=== PATIENT | male | born 1940 | race Caucasian/White ===

== ENCOUNTER → 2016-11-26 | Outpatient (CLI) | payer MEDICARE ==
--- NOTE | 2016-11-26 12:17 | ECHOS ---
DATE OF SERVICE: 11/26/2016 AGE: 76Y SEX: M HT: 67 WT: 220 lbs. Protocol Jean-Paul: X Others: Stress Echo Stage: I Dur. of Exercise: 3 minutes *Heart Rate Blood Pressure *Rest: 90 Rest: 167/87 * *Max. Achieved: 138 Maximum BP: 190/82 85% PMHR: 121 100% PMHR: 142 *METS: 4.4 INDICATIONS: Chest pain. MEDICATIONS: Simvastatin, aspirin. The baseline rhythm is sinus mechanism, rate of 90, with intraventricular conduction delay and voltage criteria for left ventricular hypertrophy and nonspecific ST-T wave changes. Baseline blood pressure 167/87 mmHg. Patient exercised on Jean-Paul protocol for 3 minutes reaching peak rate of 138 beats per minute, which is equal to 97% of maximum predicted heart rate; peak blood pressure 190/82 mmHg. Test was terminated secondary to fatigue. There was no chest pain. Electrocardiograph monitoring revealed no evidence of diagnostic ischemic ST deviation. Baseline echocardiogram revealed an inferobasal and inferobasal lateral hypokinesis with no change at peak exercise. CONCLUSION: 1. Poor exercise tolerance with nondiagnostic electrocardiographic stress testing secondary to baseline EKG abnormality. 2. Abnormal stress echocardiogram with evidence of a fixed hypokinesis involving the inferobasal and inferobasal lateral wall suggestive of prior myocardial infarction. There was no evidence of stress-induced ischemia.
== END | disposition home or self-care (01) ==
LOC: RADNMMAIN 10:04
PROVIDERS: ATTEND Family Medicine
DX: I25.9 Chronic ischemic heart disease, unspecified (principal); I48.91 Unspecified atrial fibrillation
CPT/HCPCS: 93017; 93350

== ENCOUNTER 2018-01-16 13:20 | Emergency (ER) | payer MEDICARE ==
[2018-01-16 13:26] VITALS: TEMP 98.3
[2018-01-16] MEDS ORDERED: MORPHINE SULFATE 4 MG/ML SYRINGE IVP STA (14:04)
[2018-01-16] MEDS ORDERED: SODIUM CHLORIDE 0.9% 1,000 ML IV STA ×2 (14:04)
[2018-01-16] MEDS ORDERED: ONDANSETRON 4 MG/2 ML VIAL IVP STA (14:04)
[2018-01-16 14:23] LABS: Basophils % (A) 0 %; Eosinophils # (A) 0.1 k/uL (0-0.7); Eosinophils % (A) 1 %; HCT 43.9 % (39.0-53.0); HGB 14.6 gm/dL (13.0-17.5); Lymphocytes # (A) 1.2 k/uL (1.0-4.8); Lymphocytes % (A) 10 %; MCH 30.3 pg (25.0-35.0); MCHC 33.3 g/dL (31.0-37.0); Mean Platelet Volume 6.9; Monocytes # (A) 0.6 k/uL (0-1.0); Monocytes % (A) 5 %; Neutrophils # (A) 10.3 k/uL (1.3-7.7); Neutrophils % (A) 83 %; Platelet Count 237 k/uL (150-450); RBC 4.82 m/uL (4.30-5.90); RDW 12.8 % (11.5-15.5); WBC 12.3 k/uL (3.8-10.6)
[2018-01-16 14:41] LABS: Partial Thromboplastin Time 24.8 sec (22.0-30.0); Prothrombin Time 10.1 sec (9.0-12.0)
[2018-01-16 14:46] LABS: Calcium 9.6 mg/dL (8.4-10.2); Potassium 3.5 mmol/L (3.5-5.1); Total Protein 6.6 g/dL (6.3-8.2)
--- NOTE | 2018-01-16 14:58 | ED ---
Abdominal Pain HPI - General Chief Complaint: Abdominal Pain Stated Complaint: Abd Pain Time Seen by Provider: 01/16/18 13:38 Source: patient, family, RN notes reviewed, old records reviewed Mode of arrival: ambulatory Limitations: no limitations - History of Present Illness Initial Comments: 77-year-old male presents emergency Department due to complaint of her abdominal pain, nausea vomiting and diarrhea for the past few days. He reports he's not been able to eat and thinks that night. He states the pain seems to be crampy in nature. He denies any fever or chills. He reports pain occasionally radiates towards his back. No urinary symptoms. No bloody stools or bloody emesis. Surgical history includes hernia repairs. He has a history of coronary disease, hyperlipidemia, hypertension and thyroid disorder. - Related Data Home Medications Medication Instructions Recorded Confirmed Aspirin EC [Ecotrin Low Dose] 1 tab PO DAILY 02/09/14 01/16/18 Doxazosin [Cardura] 2 tab PO DAILY 02/09/14 01/16/18 Levothyroxine Sodium [Levoxyl] 1 tab PO DAILY 02/09/14 01/16/18 Metoprolol Tartrate [Lopressor] 1 tab PO DAILY 02/09/14 01/16/18 Simvastatin [Zocor] 1 tab PO HS 02/09/14 01/16/18 Ketoconazole 2% Cream [Nizoral 2%] 1 applic TOPICAL DAILY 09/12/14 01/16/18 Omeprazole [PriLOSEC] 20 mg PO AC-BRKFST 09/12/14 01/16/18 Apixaban [Eliquis] 5 mg PO DAILY 01/16/18 01/16/18 Previous Rx's Medication Instructions Recorded Acetaminophen-Codeine 300-30mg 1 tab PO Q6H PRN 3 Days #12 tablet 01/16/18 [Tylenol w/codeine #3] Naproxen 500 mg PO BID #20 tablet 01/16/18 Ondansetron Odt [Zofran Odt] 4 mg PO Q8HR PRN #15 tab 01/16/18 Allergies Allergy/AdvReac Type Severity Reaction Status Date / Time Milk Containing Products Allergy Diarrhea Verified 01/16/18 13:25 hydromorphone HCl AdvReac Nausea & Verified 01/16/18 13:25 [From Dilaudid] Vomiting Review of Systems ROS Statement: Those systems with pertinent positive or pertinent negative responses have been documented in the HPI. ROS Other: All systems not noted in ROS Statement are negative. Past Medical History Past Medical History: Coronary Artery Disease (CAD), Hyperlipidemia, Hypertension, Thyroid Disorder History of Any Multi-Drug Resistant Organisms: None Reported Past Surgical History: Hernia Repair, Orthopedic Surgery Additional Past Surgical History / Comment(s): skin cancer, l eye cataract Past Psychological History: No Psychological Hx Reported Smoking Status: Former smoker Past Alcohol Use History: None Reported Past Drug Use History: None Reported General Exam - General Exam Comments Initial Comments: 77-year-old male. Alert and oriented. No acute distress. Limitations: no limitations General appearance: alert, in no apparent distress Head exam: Present: atraumatic, normocephalic, normal inspection Eye exam: Present: normal appearance, PERRL, EOMI. Absent: scleral icterus, conjunctival injection, periorbital swelling ENT exam: Present: normal exam, mucous membranes moist Neck exam: Present: normal inspection. Absent: tenderness, meningismus, lymphadenopathy Respiratory exam: Present: normal lung sounds bilaterally. Absent: respiratory distress, wheezes, rales, rhonchi, stridor Cardiovascular Exam: Present: regular rate, normal rhythm, normal heart sounds. Absent: systolic murmur, diastolic murmur, rubs, gallop, clicks GI/Abdominal exam: Present: soft, tenderness (Epigastric tenderness.), normal bowel sounds. Absent: distended, guarding, rebound, rigid Extremities exam: Present: normal inspection, full ROM, normal capillary refill. Absent: tenderness, pedal edema, joint swelling, calf tenderness Back exam: Present: normal inspection Neurological exam: Present: alert, oriented X3, CN II-XII intact Psychiatric exam: Present: normal affect, normal mood Course Vital Signs 01/16/18 01/16/18 01/16/18 13:24 16:00 16:59 Temperature 98.3 F Pulse Rate 80 62 69 Respiratory 20 20 20 Rate Blood Pressure 146/69 120/60 128/56 O2 Sat by Pulse 96 99 99 Oximetry 01/16/18 17:45 Temperature 98.3 F Pulse Rate 60 Respiratory 18 Rate Blood Pressure 137/63 O2 Sat by Pulse 96 Oximetry Medical Decision Making - Medical Decision Making 77-year-old male presents emergency Department due to complaint of her abdominal pain, nausea vomiting and diarrhea for the past few days. He reports he's not been able to eat and thinks that night. He states the pain seems to be crampy in nature. He denies any fever or chills. He reports pain occasionally radiates towards his back on the right. Labs reviewed. Elevated bilirubin and mildly elevated WBC. With pt symptoms, US gallbladder obtained. Evidence of cholelithiasis. Pt als has hematuria, however I am no clinically concerned for kidney stone. Renal cyst noted in US. Discussed findings with pt, offered admission. States he prefers to go home. Discussed referral for surgereon for cholelithiasis and biliary colic. Discussed follow up for hematuria. Discussed return parameters. All question answered. DC with nausea and pain medication. - Lab Data Result diagrams: 01/16/18 13:55 01/16/18 13:55 Lab Results 01/16/18 01/16/18 01/16/18 Range/Units 13:55 13:55 13:55 WBC 12.3 H (3.8-10.6) k/uL RBC 4.82 (4.30-5.90) m/uL Hgb 14.6 (13.0-17.5) gm/dL Hct 43.9 (39.0-53.0) % MCV 91.0 (80.0-100.0) fL MCH 30.3 (25.0-35.0) pg MCHC 33.3 (31.0-37.0) g/dL RDW 12.8 (11.5-15.5) % Plt Count 237 (150-450) k/uL Neutrophils % 83 % Lymphocytes % 10 % Monocytes % 5 % Eosinophils % 1 % Basophils % 0 % Neutrophils # 10.3 H (1.3-7.7) k/uL Lymphocytes # 1.2 (1.0-4.8) k/uL Monocytes # 0.6 (0-1.0) k/uL Eosinophils # 0.1 (0-0.7) k/uL Basophils # 0.0 (0-0.2) k/uL PT (9.0-12.0) sec INR (<1.2) APTT (22.0-30.0) sec Sodium 142 (137-145) mmol/L Potassium 3.5 (3.5-5.1) mmol/L Chloride 101 (98-107) mmol/L Carbon Dioxide 26 (22-30) mmol/L Anion Gap 15 mmol/L BUN 24 H (9-20) mg/dL Creatinine 1.10 (0.66-1.25) mg/dL Est GFR (CKD-EPI)AfAm 74 (>60 ml/min/1.73 sqM) Est GFR (CKD-EPI)NonAf 64 (>60 ml/min/1.73 sqM) Glucose 110 H (74-99) mg/dL Plasma Lactic Acid Jesús 1.0 (0.7-2.0) mmol/L Calcium 9.6 (8.4-10.2) mg/dL Total Bilirubin 2.0 H (0.2-1.3) mg/dL AST 30 (17-59) U/L ALT 40 (21-72) U/L Alkaline Phosphatase 53 (38-126) U/L Total Protein 6.6 (6.3-8.2) g/dL Albumin 4.0 (3.5-5.0) g/dL Amylase 42 (30-110) U/L Lipase 36 (23-300) U/L Urine Color Urine Appearance (Clear) Urine pH (5.0-8.0) Ur Specific [place] (1.001-1.035) Urine Protein (Negative) Urine Glucose (UA) (Negative) Urine Ketones (Negative) Urine Blood (Negative) Urine Nitrite (Negative) Urine Bilirubin (Negative) Urine Urobilinogen (<2.0) mg/dL Ur Leukocyte Esterase (Negative) Urine RBC (0-5) /hpf Urine WBC (0-5) /hpf Urine Mucus (None) /hpf 01/16/18 01/16/18 Range/Units 13:55 16:35 WBC (3.8-10.6) k/uL RBC (4.30-5.90) m/uL Hgb (13.0-17.5) gm/dL Hct (39.0-53.0) % MCV (80.0-100.0) fL MCH (25.0-35.0) pg MCHC (31.0-37.0) g/dL RDW (11.5-15.5) % Plt Count (150-450) k/uL Neutrophils % % Lymphocytes % % Monocytes % % Eosinophils % % Basophils % % Neutrophils # (1.3-7.7) k/uL Lymphocytes # (1.0-4.8) k/uL Monocytes # (0-1.0) k/uL Eosinophils # (0-0.7) k/uL Basophils # (0-0.2) k/uL PT 10.1 (9.0-12.0) sec INR 1.0 (<1.2) APTT 24.8 (22.0-30.0) sec Sodium (137-145) mmol/L Potassium (3.5-5.1) mmol/L Chloride (98-107) mmol/L Carbon Dioxide (22-30) mmol/L Anion Gap mmol/L BUN (9-20) mg/dL Creatinine (0.66-1.25) mg/dL Est GFR (CKD-EPI)AfAm (>60 ml/min/1.73 sqM) Est GFR (CKD-EPI)NonAf (>60 ml/min/1.73 sqM) Glucose (74-99) mg/dL Plasma Lactic Acid Jesús (0.7-2.0) mmol/L Calcium (8.4-10.2) mg/dL Total Bilirubin (0.2-1.3) mg/dL AST (17-59) U/L ALT (21-72) U/L Alkaline Phosphatase (38-126) U/L Total Protein (6.3-8.2) g/dL Albumin (3.5-5.0) g/dL Amylase (30-110) U/L Lipase (23-300) U/L Urine Color Yellow Urine Appearance Clear (Clear) Urine pH 6.0 (5.0-8.0) Ur Specific [place] 1.021 (1.001-1.035) Urine Protein Trace H (Negative) Urine Glucose (UA) Negative (Negative) Urine Ketones Negative (Negative) Urine Blood Small H (Negative) Urine Nitrite Negative (Negative) Urine Bilirubin Negative (Negative) Urine Urobilinogen <2.0 (<2.0) mg/dL Ur Leukocyte Esterase Small H (Negative) Urine RBC 10 H (0-5) /hpf Urine WBC 5 (0-5) /hpf Urine Mucus Moderate H (None) /hpf - Radiology Data Radiology results: report reviewed Correlate for hepatic steatosis. Hepatomegaly. Cholelithiasis. Simple cyst lower pole of the right kidney. Objective right nephrolithiasis. Some limitations to the exam. Disposition Clinical Impression: Biliary colic, Hematuria Disposition: HOME SELF-CARE Condition: Good Instructions: Biliary Colic (ED), Abdominal Pain (ED) Additional Instructions: Patient has follow-up with primary care provider and surgeon. Return to the emergency department if any alarming signs or symptoms occur. Prescriptions: Acetaminophen-Codeine 300-30mg [Tylenol w/codeine #3] 1 tab PO Q6H PRN 3 Days # 12 tablet PRN Reason: Pain Naproxen 500 mg PO BID #20 tablet Ondansetron Odt [Zofran Odt] 4 mg PO Q8HR PRN #15 tab PRN Reason: Nausea Is patient prescribed a controlled substance at d/c from ED?: No If prescribed controlled substance>3 days was MAPS reviewed?: No When asked, does pt state using other controlled substances?: No Referrals: Haim Felder MD [Primary Care Provider] - 1-2 days Kelsi Brown MD [STAFF PHYSICIAN] - 1-2 days Loyda Porter DO [Doctor of Osteopathic Medicine] - 1-2 days Time of Disposition: 17:34
--- NOTE | 2018-01-16 15:04 | XR ---
Abdomen HISTORY: Pain Frontal view of the abdomen on 2 images There are air-fluid levels present. No pneumoperitoneum. Gas-filled loops of bowel are present. Lung bases show possible atelectatic change. IMPRESSION: Correlate for ileus or enteritis, follow-up as indicated if bowel obstruction is suspecte d.
--- NOTE | 2018-01-16 16:43 | US ---
EXAMINATION TYPE: US gallbladder DATE OF EXAM: 01/16/2018 COMPARISON: Previous dated 08/16/[address] 08/14/2012 CLINICAL HISTORY: Pain. NPO, LLQ pain EXAM MEASUREMENTS: Liver Length: 19.5 cm Gallbladder Wall: 0.2 cm CHD: 0.4 cm Right Kidney: 9.7 x 5.0 x 5.4 cm Limited exam due to overlying bowel gas and pt body habitus Pancreas: Appears echogenic. Tail obscured by overlying bowel gas Liver: Appears course and enlarged. Increased attenuation, decreased visualization of vessels sugges tive of fatty infiltrate Gallbladder: Multiple mobile echogenic foci Evidence for sonographic Calderón's sign: neg CBD: Obscured by overlying bowel gas CHD: wnl Right Kidney: Lower pole lateral cystic appearing lesion = 2.2 x 2.9 x 2.7 cm. There is increased th rough transmission, imperceptible wall, anechoic appearance. Nonobstruction echogenic focus with sha ava in lower pole = 0.6 x 0.8 cm No evident ascites. IMPRESSION: Correlate for hepatic steatosis, there is hepatomegaly. Cholelithiasis. Simple cyst lower pole right kidney, nonobstructive right nephrolithiasis There are some limitations to the exam.
[2018-01-16 16:51] LABS: Appearance,Urine Clear (Clear); Bilirubin,Urine Negative (Negative); Blood,Urine Small (Negative); Color,Urine Yellow; Glucose,Urine (UA) Negative (Negative); Ketones,Urine Negative (Negative); Leukocyte Esterase,Urine Small (Negative); Mucus,Urine Moderate /hpf; Nitrite,Urine Negative (Negative); Protein,Urine Trace (Negative); RBC,Urine 10 /hpf (0-5); Specific Gravity,Urine 1.021 (1.001-1.035); Urobilinogen,Urine <2.0 mg/dL (<2.0); WBC,Urine 5 /hpf (0-5)
[2018-01-16 18:20] VITALS: BP 137/63; PULSE 60; RESP 18
== END 2018-01-16 17:45 | disposition home or self-care (01) ==
LOC: EC 13:20
DX: K80.50 Calculus of bile duct without cholangitis or cholecystitis without obstruction (principal); R31.9 Hematuria, unspecified; R19.7 Diarrhea, unspecified; I25.10 Atherosclerotic heart disease of native coronary artery without angina pectoris; E78.5 Hyperlipidemia, unspecified; I10 Essential (primary) hypertension; E07.9 Disorder of thyroid, unspecified; Z85.828 Personal history of other malignant neoplasm of skin; Z87.891 Personal history of nicotine dependence; Z79.01 Long term (current) use of anticoagulants; Z79.82 Long term (current) use of aspirin; Z79.899 Other long term (current) drug therapy; Z91.011 Allergy to milk products; Z88.5 Allergy status to narcotic agent
CPT/HCPCS: 36415; 80053; 82150; 83605; 83690; 85025; 85610; 85730; 81001; 74018; 76705; 99285; 96374; 96375; 96361 ×3; J2270; J2405

== ENCOUNTER → 2018-08-18 | Outpatient (CLI) | payer MEDICARE ==
--- NOTE | 2018-08-19 08:11 | CT ---
EXAMINATION TYPE: CT abdomen pelvis wo/w con DATE OF EXAM: 08/18/2018 COMPARISON: CT abdomen and pelvis August 14, 2012 HISTORY: c/o hematuria and diarrhea CT DLP: 2748.6 mGycm, Automated Exposure Control for Dose Reduction was Utilized. CONTRAST: CT scan of the abdomen and pelvis is performed with oral and without and with IV Contrast, patient in jected with 80 mL of Isovue 300. FINDINGS: LUNG BASES: Focal calcification near left aspect of mitral valve axial image 13 is new from prior. LIVER/GB: On noncontrast imaged liver is diffusely low dense relative to spleen consistent with diffu se fatty infiltration. Gallbladder is now not visualized and presumed surgically absent. PANCREAS: No significant abnormality is seen. SPLEEN: No significant abnormality is seen. ADRENALS: No significant abnormality is seen. KIDNEYS: There is bilateral nephrolithiasis redemonstrated. There are at least 4-6 calculi scattered throughout the left kidney measuring up to 6 mm in size coronal image 81. 4-6 calculi scattered throu ghout the right kidney are felt present with larger calculi seen lower pole level coronal image 71 me asuring up to 5 mm in size. There are a few simple appearing cysts scattered throughout both kidneys. Largest cyst is bilobed and exophytic upper pole level left kidney similar to prior. Some central ca lcifications in left kidney favors vascular etiology. No hydronephrosis or obstructing renal calculi are clearly seen bilaterally. There is symmetric cortical medullary uptake and excretion from both ki dneys without hydronephrosis seen bilaterally bladder is poorly distended and thus suboptimally evalu ated. Bladder calcifications are present along right margin could reflect intraluminal calculi versus bladder wall calcifications as there are more curvilinear in appearance but are fairly dependent in location on coronal image 61. BOWEL: No significant abnormality is seen. PROSTATE/SEMINAL VESICLES: Prostate gland is markedly enlarged in size consistent with BPH with poste rior calcifications redemonstrated. LYMPH NODES: No greater than 1cm abdominal or pelvic lymph nodes are appreciated. OSSEOUS STRUCTURES: Multilevel disc space narrowing and vacuum disc phenomenon is present with multil evel spurring throughout the thoracolumbar spine moderate to severe narrowing and mild to moderate sp urring in both hip joints is present.. OTHER: There is new small to moderate-sized fat-containing incisional hernia along scar axial image 5 5 and coronal image 9 series 12. IMPRESSION: 1. Bilateral nephrolithiasis with progression in size and number of calculi from prior CT. Suspect ad ditional intraluminal calculi in the bladder. No definitive hydronephrosis or obstructing ureter calc mela seen. 2. Marked lead enlarged prostate gland consistent with BPH is redemonstrated. Bladder wall thickening is presumed product of outlet obstruction related to BPH. 3. No bowel obstruction. No suspicious bowel wall thickening is seen.
== END | disposition home or self-care (01) ==
LOC: RADCTMAIN 14:32
PROVIDERS: ATTEND Family Medicine
DX: N20.0 Calculus of kidney (principal); N40.0 Benign prostatic hyperplasia without lower urinary tract symptoms
CPT/HCPCS: 82565; 84520; 74178; 36415; Q9967

== ENCOUNTER 2019-06-24 17:24 | Inpatient (IN) | payer MEDICARE ==
[2019-06-24] MEDS ORDERED: SODIUM CHLORIDE 0.9% 1,000 ML IV STA (17:59)
--- NOTE | 2019-06-24 18:07 | ED ---
Weakness HPI - General Chief complaint: Weakness Stated complaint: weakness, low BP Time Seen by Provider: 06/24/19 17:45 Source: patient, RN notes reviewed, old records reviewed Mode of arrival: wheelchair Limitations: no limitations - History of Present Illness Initial comments: This is a 79-year-old male the ER for evaluation presents a for evaluation regards to weakness not feeling well. Low blood pressure. Patient was seen by primary care sent ER for evaluation. Patient is significant weakness as well shortness of breath with exertion some mild abdominal pain and nausea no chest pain. No headache. No recent syncopal event no trauma. No recent change in medications. Patient has long calm. Medical history on blood thinners. MD Complaint: generalized weakness, lack of energy -: days(s) Location: generalized Severity: moderate Severity scale (1-10): 7 Consistency: constant Improves with: none Worsens with: none Context: recent illness, history of similar Associated Symptoms: loss of appetite, nausea/vomiting - Related Data Home Medications Medication Instructions Recorded Confirmed Doxazosin [Cardura] 8 mg PO DAILY 02/09/14 06/24/19 Levothyroxine Sodium [Levoxyl] 100 mcg PO DAILY 02/09/14 06/24/19 Metoprolol Tartrate [Lopressor] 50 mg PO DAILY 02/09/14 06/24/19 Simvastatin [Zocor] 40 mg PO HS 02/09/14 06/24/19 Ketoconazole 2% Cream [Nizoral 2%] 1 applic TOPICAL DAILY 09/12/14 06/24/19 Omeprazole [PriLOSEC] 20 mg PO AC-BRKFST 09/12/14 06/24/19 Apixaban [Eliquis] 5 mg PO BID 01/16/18 06/24/19 Albuterol Nebulized [Ventolin 2.5 mg INHALATION RT-QID PRN 06/24/19 06/24/19 Nebulized] Albuterol Sulfate [Ventolin HFA] 2 puff INHALATION RT-QID 06/24/19 06/24/19 Chlorthalidone [Hygroton] 25 mg PO DAILY 06/24/19 06/24/19 Ergocalciferol [Vitamin D2] 50,000 unit PO Q30D 06/24/19 06/24/19 Fluticasone Nasal [place] [Flonase 1 spr EA NOSTRIL DAILY 06/24/19 06/24/19 Nasal [place]] Montelukast [Singulair] 10 mg PO HS 06/24/19 06/24/19 Allergies Allergy/AdvReac Type Severity Reaction Status Date / Time Milk Containing Products Allergy Diarrhea Verified 06/24/19 18:04 silicone Allergy Rash/Hives Verified 06/24/19 18:04 hydromorphone HCl AdvReac Nausea & Verified 06/24/19 18:04 [From Dilaudid] Vomiting powder from latex gloves Allergy Rash/Hives Uncoded 05/07/18 07:52 Review of Systems ROS Statement: Those systems with pertinent positive or pertinent negative responses have been documented in the HPI. ROS Other: All systems not noted in ROS Statement are negative. Past Medical History Past Medical History: Atrial Fibrillation, Coronary Artery Disease (CAD), GERD/Reflux, Hyperlipidemia, Hypertension, Myocardial Infarction (ID), Prostate Disorder, Thyroid Disorder Additional Past Medical History / Comment(s): Enlarged Prostate, States ID 30 years ago. Last Myocardial Infarction Date:: 1987 History of Any Multi-Drug Resistant Organisms: None Reported Past Surgical History: Heart Catheterization, Hernia Repair, Orthopedic Surgery Additional Past Surgical History / Comment(s): skin cancer, L eye cataract, R knee replacement Past Anesthesia/Blood Transfusion Reactions: No Reported Reaction Past Psychological History: No Psychological Hx Reported Smoking Status: Former smoker Past Alcohol Use History: None Reported Past Drug Use History: None Reported - Past Family History Mother Family Medical History: No Reported History Sister(s) Family Medical History: Cancer Additional Family Medical History / Comment(s): Ovarian Brother(s) Family Medical History: Cancer Additional Family Medical History / Comment(s): Non-Hodgkins Lymphoma General Exam Limitations: no limitations General appearance: alert, in no apparent distress Head exam: Present: atraumatic, normocephalic, normal inspection Eye exam: Present: normal appearance, EOMI. Absent: scleral icterus, conjunctival injection, periorbital swelling ENT exam: Present: normal exam, mucous membranes dry Neck exam: Present: normal inspection. Absent: tenderness, meningismus, lymphadenopathy Respiratory exam: Present: normal lung sounds bilaterally. Absent: respiratory distress, wheezes, rales, rhonchi, stridor Cardiovascular Exam: Present: regular rate, normal rhythm, normal heart sounds. Absent: systolic murmur, diastolic murmur, rubs, gallop, clicks GI/Abdominal exam: Present: soft, normal bowel sounds. Absent: distended, tenderness, guarding, rebound, rigid Extremities exam: Present: normal inspection, full ROM, normal capillary refill. Absent: tenderness, pedal edema, joint swelling, calf tenderness Back exam: Present: normal inspection Neurological exam: Present: alert, oriented X3, CN II-XII intact Psychiatric exam: Present: normal affect, normal mood Skin exam: Present: warm, dry, intact, normal color. Absent: rash Course Vital Signs 06/24/19 06/24/19 06/24/19 17:26 18:22 18:50 Temperature 97.7 F Pulse Rate 79 69 73 Respiratory 18 21 23 Rate Blood Pressure 117/75 90/79 102/83 O2 Sat by Pulse 97 96 96 Oximetry 06/24/19 19:17 Temperature Pulse Rate 80 Respiratory 18 Rate Blood Pressure 121/80 O2 Sat by Pulse 95 Oximetry - Reevaluation(s) Reevaluation #1: 06/24/19 18:07 Medical records reviewed Reevaluation #2: 06/24/19 19:32 Patient continues reiterates that he has some chest pain - Consultations Consultation #1: spoke w Dr Fabian whois aware of patient, spoke with cardiology who is aware patient's troponin and EKG EKG Findings - EKG Comments: EKG Findings:: EKG shows A. fib rate of 70, QRS 170, QTc 547, 1 widened QRS from LBBB Medical Decision Making - Medical Decision Making 79 male seen evaluated here in the ER for weakness and low blood pressure. Patient has sustained ID, non-ST elevated ID. Patient has history of A. fib in A. fib with a normal rate, wide complex QRS and left bundle. Patient's troponins 0.3. Patient is on anticoagulation secondary to A. fib and will be admitted for cardiology observation. No current chest pain - Lab Data Result diagrams: 06/24/19 18:15 06/24/19 18:15 Lab Results 06/24/19 06/24/19 06/24/19 Range/Units 18:15 18:15 18:15 WBC 8.8 (3.8-10.6) k/uL RBC 4.78 (4.30-5.90) m/uL Hgb 15.2 (13.0-17.5) gm/dL Hct 44.0 (39.0-53.0) % MCV 92.1 (80.0-100.0) fL MCH 31.8 (25.0-35.0) pg MCHC 34.5 (31.0-37.0) g/dL RDW 12.7 (11.5-15.5) % Plt Count 264 (150-450) k/uL Neutrophils % 70 % Lymphocytes % 20 % Monocytes % 5 % Eosinophils % 2 % Basophils % 1 % Neutrophils # 6.1 (1.3-7.7) k/uL Lymphocytes # 1.8 (1.0-4.8) k/uL Monocytes # 0.4 (0-1.0) k/uL Eosinophils # 0.2 (0-0.7) k/uL Basophils # 0.1 (0-0.2) k/uL PT (9.0-12.0) sec INR (<1.2) APTT (22.0-30.0) sec Sodium 141 (137-145) mmol/L Potassium 3.5 (3.5-5.1) mmol/L Chloride 104 (98-107) mmol/L Carbon Dioxide 28 (22-30) mmol/L Anion Gap 9 mmol/L BUN 20 (9-20) mg/dL Creatinine 1.26 H (0.66-1.25) mg/dL Est GFR (CKD-EPI)AfAm 61 (>60 ml/min/1.73 sqM) Est GFR (CKD-EPI)NonAf 53 (>60 ml/min/1.73 sqM) Glucose 101 H (74-99) mg/dL Plasma Lactic Acid Jesús 1.2 (0.7-2.0) mmol/L Calcium 10.1 (8.4-10.2) mg/dL Phosphorus 3.7 (2.5-4.5) mg/dL Magnesium 1.9 (1.6-2.3) mg/dL Total Bilirubin 1.0 (0.2-1.3) mg/dL AST 34 (17-59) U/L ALT 37 (21-72) U/L Alkaline Phosphatase 52 (38-126) U/L Creatine Kinase 199 H (55-170) U/L Troponin I (0.000-0.034) ng/mL Total Protein 7.2 (6.3-8.2) g/dL Albumin 4.2 (3.5-5.0) g/dL TSH 1.790 (0.465-4.680) mIU/L 06/24/19 06/24/19 Range/Units 18:15 18:15 WBC (3.8-10.6) k/uL RBC (4.30-5.90) m/uL Hgb (13.0-17.5) gm/dL Hct (39.0-53.0) % MCV (80.0-100.0) fL MCH (25.0-35.0) pg MCHC (31.0-37.0) g/dL RDW (11.5-15.5) % Plt Count (150-450) k/uL Neutrophils % % Lymphocytes % % Monocytes % % Eosinophils % % Basophils % % Neutrophils # (1.3-7.7) k/uL Lymphocytes # (1.0-4.8) k/uL Monocytes # (0-1.0) k/uL Eosinophils # (0-0.7) k/uL Basophils # (0-0.2) k/uL PT 10.2 (9.0-12.0) sec INR 0.9 (<1.2) APTT 27.6 (22.0-30.0) sec Sodium (137-145) mmol/L Potassium (3.5-5.1) mmol/L Chloride (98-107) mmol/L Carbon Dioxide (22-30) mmol/L Anion Gap mmol/L BUN (9-20) mg/dL Creatinine (0.66-1.25) mg/dL Est GFR (CKD-EPI)AfAm (>60 ml/min/1.73 sqM) Est GFR (CKD-EPI)NonAf (>60 ml/min/1.73 sqM) Glucose (74-99) mg/dL Plasma Lactic Acid Jesús (0.7-2.0) mmol/L Calcium (8.4-10.2) mg/dL Phosphorus (2.5-4.5) mg/dL Magnesium (1.6-2.3) mg/dL Total Bilirubin (0.2-1.3) mg/dL AST (17-59) U/L ALT (21-72) U/L Alkaline Phosphatase (38-126) U/L Creatine Kinase (55-170) U/L Troponin I 0.252 H* (0.000-0.034) ng/mL Total Protein (6.3-8.2) g/dL Albumin (3.5-5.0) g/dL TSH (0.465-4.680) mIU/L - Radiology Data Radiology results: report reviewed (Chest x-rays negative for acute disease), image reviewed Critical Care Time Critical Care Time: Yes Total Critical Care Time: 81 Disposition Clinical Impression: Weakness, NSTEMI (non-ST elevated myocardial infarction) Disposition: ADMITTED IP TO THIS [facility] Condition: Serious Is patient prescribed a controlled substance at d/c from ED?: No Referrals: Haim Felder MD [Primary Care Provider] - 1-2 days
[2019-06-24 18:30] LABS: Basophils # (A) 0.1 k/uL (0-0.2); Basophils % (A) 1 %; Eosinophils # (A) 0.2 k/uL (0-0.7); Eosinophils % (A) 2 %; HGB 15.2 gm/dL (13.0-17.5); Lymphocytes # (A) 1.8 k/uL (1.0-4.8); Lymphocytes % (A) 20 %; MCH 31.8 pg (25.0-35.0); MCHC 34.5 g/dL (31.0-37.0); MCV 92.1 fL (80.0-100.0); Mean Platelet Volume 6.1; Monocytes # (A) 0.4 k/uL (0-1.0); Monocytes % (A) 5 %; Neutrophils # (A) 6.1 k/uL (1.3-7.7); Neutrophils % (A) 70 %; Platelet Count 264 k/uL (150-450); RBC 4.78 m/uL (4.30-5.90); RDW 12.7 % (11.5-15.5); WBC 8.8 k/uL (3.8-10.6)
[2019-06-24 18:45] LABS: Albumin 4.2 g/dL (3.5-5.0); Calcium 10.1 mg/dL (8.4-10.2); Magnesium 1.9 mg/dL (1.6-2.3); Phosphorus 3.7 mg/dL (2.5-4.5); Potassium 3.5 mmol/L (3.5-5.1); Total Protein 7.2 g/dL (6.3-8.2)
[2019-06-24 19:07] LABS: INR 0.9 (<1.2); Partial Thromboplastin Time 27.6 sec (22.0-30.0); Prothrombin Time 10.2 sec (9.0-12.0)
[2019-06-24] MEDS ORDERED: ASPIRIN 81 MG PO STA (19:29)
[2019-06-24] MEDS ORDERED: NITROGLYCERIN SL TABS 0.4 MG TAB SUBLINGUAL PRN (19:29)
[2019-06-24] MEDS: SODIUM CHLORIDE 0.9% 1,000 ML IV SCH (19:39)
[2019-06-24 19:50] LABS: Appearance,Urine Clear (Clear); Bilirubin,Urine Negative (Negative); Blood,Urine Small (Negative); Color,Urine Yellow; Glucose,Urine (UA) Negative (Negative); Hyaline Casts,Urine 5 /lpf (0-2); Ketones,Urine Negative (Negative); Leukocyte Esterase,Urine Negative (Negative); Mucus,Urine Rare /hpf; Nitrite,Urine Negative (Negative); Protein,Urine Trace (Negative); RBC,Urine 61 /hpf (0-5); Specific Gravity,Urine 1.024 (1.001-1.035); Squamous Epithelial Cell,Urine <1 /hpf (0-4); Urobilinogen,Urine <2.0 mg/dL (<2.0); WBC,Urine 2 /hpf (0-5)
[2019-06-24 22:01] VITALS: BMI 34.9
[2019-06-24] MEDS ORDERED: ALBUTEROL NEBULIZED 2.5 MG/3 ML INHALATION PRN (22:39)
[2019-06-24] MEDS: ACETAMINOPHEN TAB 325 MG TAB PO PRN (23:09)
[2019-06-24] MEDS: ATORVASTATIN 20 MG TAB PO SCH (23:09)
[2019-06-24] MEDS: APIXABAN 5 MG TAB PO SCH (23:09)
[2019-06-24] MEDS: MONTELUKAST 10 MG TAB PO SCH (23:09)
[2019-06-25] MEDS: LEVOTHYROXINE 100 MCG TAB PO SCH (06:27)
[2019-06-25] MEDS: PANTOPRAZOLE 40 MG TABLET PO SCH (06:27)
[2019-06-25 06:46] LABS: Cholesterol 123 mg/dL (<200); HDL Cholesterol 37 mg/dL (40-60); LDL Cholesterol,Calculated 56 mg/dL (0-99); Triglycerides 150 mg/dL (<150)
[2019-06-25] MEDS: FLUTICASONE 50MCG/SPRAY NASAL 16GM EA NOSTRIL SCH (08:45)
[2019-06-25] MEDS ORDERED: ASPIRIN 325 MG TAB PO SCH (09:00)
[2019-06-25] MEDS: APIXABAN 5 MG TAB PO SCH ×2 (09:03→20:18)
[2019-06-25] MEDS: DOXAZOSIN 4 MG TAB PO SCH (09:03)
[2019-06-25] MEDS: ALBUTEROL NEBULIZED 2.5 MG/3 ML INHALATION SCH ×4 (09:24→20:10)
[2019-06-25] MEDS: METOPROLOL TARTRATE 50 MG TAB PO SCH (11:05)
--- NOTE | 2019-06-25 12:40 | P.HPIM ---
History of Present Illness 79-year-old pleasant gentleman was admitted for possible low blood pressure although his blood pressure is 120 systolic and 60s diastolic at home. Patient was feeling weak and he believed blood pressure is the reason for that . Katie fontenot's heart rate was any teas his normal heart rate is in 50s as per the patient because of which patient came to ER and ER patient had stable mild elevation of troponins to 0.2 because of which patient was admitted for rule out acute current syndromes patient doesn't have any chest pain patient denied fever chills nausea vomiting diaphoresis. Patient was a valid by cardiology patient doesn't have any acute EKG changes cardiology is recommending echocardiogram and if echocardiogram doesn't show any wall motion abnormalities. Patient did recommending him to discharge the patient. Patient does have chronic kidney disease which may be responsible for his mild troponin elevation. Patient ba seline creatinine 1.2. Patient is also on chlorthalidone may not be beneficialbecause of the his serum creatinine being 1.2 and this will be discontinued and patient will be discharged to follow up with primary care physician if cleared by cardiology. Review of Systems REVIEW OF SYSTEMS: CONSTITUTIONAL: No fever, no malaise, HEENT: No recent visual problems or hearing problems. Denied any sore throat. CARDIOVASCULAR: No chest pain, orthopnea, PND, no palpitations, no syncope. PULMONARY: No shortness of breath, no cough, no hemoptysis. GASTROINTESTINAL: No diarrhea, no nausea, no vomiting, no abdominal pain. NEUROLOGICAL: No headaches, no weakness, no numbness. HEMATOLOGICAL: Denies any bleeding or petechiae. GENITOURINARY: Denies any burning micturition, frequency, or urgency. MUSCULOSKELETAL/RHEUMATOLOGICAL: Denies any joint pain, swelling, or any muscle pain. ENDOCRINE: Denies any polyuria or polydipsia. The rest of the 14-point review of systems is negative. Past Medical History Past Medical History: Atrial Fibrillation, Coronary Artery Disease (CAD), GERD/Reflux, Hyperlipidemia, Hypertension, Myocardial Infarction ([place]), Prostate Disorder, Thyroid Disorder Additional Past Medical History / Comment(s): Enlarged Prostate, States [place] 30 years ago. Last Myocardial Infarction Date:: 1987 History of Any Multi-Drug Resistant Organisms: None Reported Past Surgical History: Heart Catheterization, Hernia Repair, Orthopedic Surgery Additional Past Surgical History / Comment(s): skin cancer, L eye cataract, R knee replacement Past Anesthesia/Blood Transfusion Reactions: No Reported Reaction Past Psychological History: No Psychological Hx Reported Smoking Status: Former smoker Past Alcohol Use History: None Reported Additional Past Alcohol Use History / Comment(s): Quit smoking in 1999. Past Drug Use History: None Reported - Past Family History Mother Family Medical History: No Reported History Sister(s) Family Medical History: Cancer Additional Family Medical History / Comment(s): Ovarian Brother(s) Family Medical History: Cancer Additional Family Medical History / Comment(s): Non-Hodgkins Lymphoma Medications and Allergies Home Medications Medication Instructions Recorded Confirmed Type Doxazosin [Cardura] 8 mg PO DAILY 02/09/14 06/24/19 History Levothyroxine Sodium [Levoxyl] 100 mcg PO DAILY 02/09/14 06/24/19 History Metoprolol Tartrate [Lopressor] 50 mg PO DAILY 02/09/14 06/24/19 History Simvastatin [Zocor] 40 mg PO HS 02/09/14 06/24/19 History Ketoconazole 2% Cream [Nizoral 2%] 1 applic TOPICAL DAILY 09/12/14 06/24/19 History Omeprazole [PriLOSEC] 20 mg PO AC-BRKFST 09/12/14 06/24/19 History Apixaban [Eliquis] 5 mg PO BID 01/16/18 06/24/19 History Albuterol Nebulized [Ventolin 2.5 mg INHALATION RT-QID PRN 06/24/19 06/24/19 History Nebulized] Albuterol Sulfate [Ventolin HFA] 2 puff INHALATION RT-QID 06/24/19 06/24/19 History Chlorthalidone [Hygroton] 25 mg PO DAILY 06/24/19 06/24/19 History Ergocalciferol [Vitamin D2] 50,000 unit PO Q30D 06/24/19 06/24/19 History Fluticasone Nasal [place] [Flonase 1 spr EA NOSTRIL DAILY 06/24/19 06/24/19 History Nasal [place]] Montelukast [Singulair] 10 mg PO HS 06/24/19 06/24/19 History Allergies Allergy/AdvReac Type Severity Reaction Status Date / Time Milk Containing Products Allergy Diarrhea Verified 06/24/19 18:04 silicone Allergy Rash/Hives Verified 06/24/19 18:04 hydromorphone HCl AdvReac Nausea & Verified 06/24/19 18:04 [From Dilaudid] Vomiting powder from latex gloves Allergy Rash/Hives Uncoded 05/07/18 07:52 Physical Exam Vitals: Vital Signs Temp Pulse Pulse Resp BP BP Pulse Ox 06/25/19 12:21 80 06/25/19 12:10 76 06/25/19 11:06 98 F 72 18 128/69 94 L 06/25/19 09:38 80 06/25/19 09:25 84 06/25/19 08:00 97.9 F 78 18 156/82 97 06/25/19 03:10 98.3 F 62 18 135/81 97 06/25/19 00:00 99.1 F 79 16 148/83 95 06/24/19 22:08 95 06/24/19 21:45 98.0 F 67 16 136/82 95 06/24/19 19:17 80 18 121/80 95 06/24/19 18:50 73 23 102/83 96 06/24/19 18:22 69 21 90/79 96 06/24/19 17:26 97.7 F 79 18 117/75 97 Intake and Output 06/24/19 06/25/19 06/25/19 22:59 06:59 14:59 Intake Total 240 Output Total 300 Balance 240 -300 Intake: Oral 240 Output: Urine 300 Other: Voiding Method Toilet # Voids 1 1 Weight 101.151 kg 99.7 kg PHYSICAL EXAMINATION: GENERAL: The patient is alert and oriented x3, not in any acute distress. Well developed, well nourished. HEENT: Pupils are round and equally reacting to light. EOMI. No scleral icterus. No conjunctival pallor. Normocephalic, atraumatic. No pharyngeal erythema. No thyromegaly. CARDIOVASCULAR: S1 and S2 present. No murmurs, rubs, or gallops. PULMONARY: Chest is clear to auscultation, no wheezing or crackles. ABDOMEN: Soft, nontender, nondistended, normoactive bowel sounds. No palpable organomegaly. MUSCULOSKELETAL: No joint swelling or deformity. EXTREMITIES: No cyanosis, clubbing, or pedal edema. NEUROLOGICAL: Gross neurological examination did not reveal any focal deficits. SKIN: No rashes. Results CBC & Chem 7: 06/24/19 18:15 06/24/19 18:15 Labs: Abnormal Lab Results - Last 24 Hours (Table) 06/24/19 06/24/19 06/24/19 Range/Units 18:15 18:15 19:25 Creatinine 1.26 H (0.66-1.25) mg/dL Glucose 101 H (74-99) mg/dL Creatine Kinase 199 H (55-170) U/L Troponin I 0.252 H* (0.000-0.034) ng/mL Triglycerides (<150) mg/dL HDL Cholesterol (40-60) mg/dL Urine Protein Trace H (Negative) Urine Blood Small H (Negative) Urine RBC 61 H (0-5) /hpf Hyaline Casts 5 H (0-2) /lpf Urine Mucus Rare H (None) /hpf 06/25/19 06/25/19 06/25/19 Range/Units 00:44 06:06 06:06 Creatinine (0.66-1.25) mg/dL Glucose (74-99) mg/dL Creatine Kinase (55-170) U/L Troponin I 0.211 H* 0.219 H* (0.000-0.034) ng/mL Triglycerides 150 H (<150) mg/dL HDL Cholesterol 37 L (40-60) mg/dL Urine Protein (Negative) Urine Blood (Negative) Urine RBC (0-5) /hpf Hyaline Casts (0-2) /lpf Urine Mucus (None) /hpf Thrombosis Risk Factor Assmnt - Choose All That Apply Each Factor Represents 1 point: Medical pt on bed rest, Obesity (BMI >25) Each Risk Factor Represents 3 Points: Age 75 years or older Thrombosis Risk Factor Assessment Total Risk Factor Score: 5 Thrombosis Risk Factor Assessment Level: High Risk Assessment and Plan Plan: -mild elevation of troponins probably secondary to chronic kidney disease patient was evaluated cardiology if they cleared him for discharge patient will be discharged today. 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
--- NOTE | 2019-06-25 13:55 | P.CRDCN ---
History of Present Illness Consult date: 06/25/19 Reason for Consult (text): Non-ST elevated myocardial infarction History of present illness: This is an 79-year-old male patient of Dr. Pozo with past medical history for chronic atrial fibrillation, coronary artery disease, history of myocardial infarction, hypertension, hyperlipidemia: Gastroesophageal reflux disease, hypothyroidism, benign prostatic hypertrophy. Patient states that 2 days ago his blood pressure was quite high for him at 149/90 and heart rate was 50. His normal blood pressure is 135/80. Yesterday he complained of weakness feeling tired shortness of breath with exertion and his blood pressure was 70/48 and heart rate 80. He had some mild abdominal pain and nausea reported in the emergency center which patient relates to gas pains which have recently evolved after he had a bowel movement this morning. CBC was unremarkable, electrolytes within normal limits, BUN 20 creatinine 1.26, liver function tests within normal limits. Troponin 0.252, 0.211, 0.219. CK 199, TSH 1.790. Triglycerides 150, cholesterol 123, LDL 56, HDL 37. Urinalysis blood small and RBCs 61. Patient's baseline creatinine is about 1.2. EKG shows atrial fibrillation with a left bundle branch block. Stress echocardiogram done in October 2016 revealed poor exercise tolerance is nondiagnostic due to baseline EKG abnormality. Abnormal stress echocardiogram with evidence of fixed hypokinesia involving the inferior basal and inferior basal lateral wall suggestive of prior myocardial infarction. No evidence of stress-induced ischemia. At the time of this evaluation, patient states that his symptoms of shortness of breath, weakness and tiredness have all resolved. Review Of Systems: Constitutional: No fever, no chills, no night sweats. No weight change. Reports weakness, fatigue or lethargy. No daytime sleepiness. EENT: No headache. No blurred vision or double vision, no loss of vision. No loss of Hearing, no ringing in the ears, no dizziness. No nasal drainage or congestion. No epistaxis. No sore throat. Lungs: No shortness of breath, cough, no sputum production. No wheezing. Cardiovascular: No chest pain, no lower extremity edema. No palpitations. No paroxysmal nocturnal dyspnea. No orthopnea. No lightheadedness or dizziness. No syncopal episodes. Abdominal: Reports abdominal pain. Reports nausea, denies vomiting. No diarrhea. No constipation. No bloody or tarry stools.. No loss of appetite. Genitourinary: No dysuria, increased frequency, urgency. No urinary retention. Musculoskeletal: No myalgias. No muscle weakness, no gait dysfunction, no frequent falls. No back pain. No neck pain. Integumentary: No wounds, no lesions. No rash or pruritus. No unusual bruising. No change in hair or nails. Neurologic: No aphasia. No facial droop. No change in mentation. No head injury. No headache. No paralysis. No paresthesia. Psychiatric: No depression. No anxiety. No mood swings. Endocrine: No abnormal blood sugars. No weight change. No excessive sweating or thirst. No cold intolerance. No weight change. Gen: This is an 79-year-old male. He is resting in bed and appears comfortable and in no acute distress. No respiratory distress noted. HEENT: Head is atraumatic, normocephalic. Pupils equal, round. Sclerae is anicteric. NECK: Supple. No JVD. No lymphadenopathy. No thyromegaly. LUNGS: Clear to auscultation. No wheezes or rhonchi. No intercostal re tractions. HEART: Regular rate and rhythm. Systolic murmur at left sternal border. ABDOMEN: Soft. Bowel sounds are present. No masses. No tenderness. EXTREMITIES: No pedal edema. No calf tenderness. NEUROLOGICAL: Patient is awake, alert and oriented x3. Cranial nerves 2 through 12 are grossly intact. Assessment: Mild elevation in troponin without acute coronary syndrome Labile blood pressures Chronic atrial fibrillation History of coronary artery disease and myocardial infarction Hypothyroidism Benign prostatic hypertrophy Plan: Hold chlorthalidone Obtain 2-D echocardiogram and Doppler study to assess cardiac structure and function No patient is also on Cardura 8 mg daily Continue eliquis 5 mg twice daily and Lopressor 50 mg daily Change aspirin to 81 mg daily, continue atorvastatin 20 mg daily Further recommendations to follow based upon clinical course Thank you kindly for this consultation Nurse practitioner note has been reviewed, I agree with documented findings and plan of care. Patient was seen and examined. Past Medical History Past Medical History: Atrial Fibrillation, Coronary Artery Disease (CAD), GERD/Reflux, Hyperlipidemia, Hypertension, Myocardial Infarction (SD), Prostate Disorder, Thyroid Disorder Additional Past Medical History / Comment(s): Enlarged Prostate, States SD 30 years ago. Last Myocardial Infarction Date:: 1987 History of Any Multi-Drug Resistant Organisms: None Reported Past Surgical History: Heart Catheterization, Hernia Repair, Orthopedic Surgery Additional Past Surgical History / Comment(s): skin cancer, L eye cataract, R knee replacement Past Anesthesia/Blood Transfusion Reactions: No Reported Reaction Past Psychological History: No Psychological Hx Reported Smoking Status: Former smoker Past Alcohol Use History: None Reported Additional Past Alcohol Use History / Comment(s): Quit smoking in 1999. Past Drug Use History: None Reported - Past Family History Mother Family Medical History: No Reported History Sister(s) Family Medical History: Cancer Additional Family Medical History / Comment(s): Ovarian Brother(s) Family Medical History: Cancer Additional Family Medical History / Comment(s): Non-Hodgkins Lymphoma Medications and Allergies Home Medications Medication Instructions Recorded Confirmed Type Doxazosin [Cardura] 8 mg PO DAILY 02/09/14 06/24/19 History Levothyroxine Sodium [Levoxyl] 100 mcg PO DAILY 02/09/14 06/24/19 History Metoprolol Tartrate [Lopressor] 50 mg PO DAILY 02/09/14 06/24/19 History Simvastatin [Zocor] 40 mg PO HS 02/09/14 06/24/19 History Ketoconazole 2% Cream [Nizoral 2%] 1 applic TOPICAL DAILY 09/12/14 06/24/19 History Omeprazole [PriLOSEC] 20 mg PO AC-BRKFST 09/12/14 06/24/19 History Apixaban [Eliquis] 5 mg PO BID 01/16/18 06/24/19 History Albuterol Nebulized [Ventolin 2.5 mg INHALATION RT-QID PRN 06/24/19 06/24/19 History Nebulized] Albuterol Sulfate [Ventolin HFA] 2 puff INHALATION RT-QID 06/24/19 06/24/19 History Ergocalciferol [Vitamin D2] 50,000 unit PO Q30D 06/24/19 06/24/19 History Fluticasone Nasal [place] [Flonase 1 spr EA NOSTRIL DAILY 06/24/19 06/24/19 History Nasal [place]] Montelukast [Singulair] 10 mg PO HS 06/24/19 06/24/19 History Allergies Allergy/AdvReac Type Severity Reaction Status Date / Time Milk Containing Products Allergy Diarrhea Verified 06/24/19 18:04 silicone Allergy Rash/Hives Verified 06/24/19 18:04 hydromorphone HCl AdvReac Nausea & Verified 06/24/19 18:04 [From Dilaudid] Vomiting powder from latex gloves Allergy Rash/Hives Uncoded 05/07/18 07:52 Physical Exam Vitals: Vital Signs Temp Pulse Pulse Resp BP BP Pulse Ox 06/25/19 09:38 80 06/25/19 09:25 84 06/25/19 08:00 97.9 F 78 18 156/82 97 06/25/19 03:10 98.3 F 62 18 135/81 97 06/25/19 00:00 99.1 F 79 16 148/83 95 06/24/19 22:08 95 06/24/19 21:45 98.0 F 67 16 136/82 95 06/24/19 19:17 80 18 121/80 95 06/24/19 18:50 73 23 102/83 96 06/24/19 18:22 69 21 90/79 96 06/24/19 17:26 97.7 F 79 18 117/75 97 Intake and Output 06/24/19 06/25/19 06/25/19 22:59 06:59 14:59 Intake Total 240 Output Total 300 Balance 240 -300 Intake: Oral 240 Output: Urine 300 Other: Voiding Method Toilet # Voids 1 1 Weight 101.151 kg 99.7 kg Results 06/24/19 18:15 06/24/19 18:15 Cardiac Enzymes 06/24/19 06/24/19 06/25/19 Range/Units 18:15 18:15 00:44 AST 34 (17-59) U/L Troponin I 0.252 H* 0.211 H* (0.000-0.034) ng/mL 06/25/19 Range/Units 06:06 AST (17-59) U/L Troponin I 0.219 H* (0.000-0.034) ng/mL Coagulation 06/24/19 Range/Units 18:15 PT 10.2 (9.0-12.0) sec APTT 27.6 (22.0-30.0) sec Lipids 06/25/19 Range/Units 06:06 Triglycerides 150 H (<150) mg/dL Cholesterol 123 (<200) mg/dL HDL Cholesterol 37 L (40-60) mg/dL CBC 06/24/19 Range/Units 18:15 WBC 8.8 (3.8-10.6) k/uL RBC 4.78 (4.30-5.90) m/uL Hgb 15.2 (13.0-17.5) gm/dL Hct 44.0 (39.0-53.0) % Plt Count 264 (150-450) k/uL Comprehensive Metabolic Panel 06/24/19 Range/Units 18:15 Sodium 141 (137-145) mmol/L Potassium 3.5 (3.5-5.1) mmol/L Chloride 104 (98-107) mmol/L Carbon Dioxide 28 (22-30) mmol/L BUN 20 (9-20) mg/dL Creatinine 1.26 H (0.66-1.25) mg/dL Glucose 101 H (74-99) mg/dL Calcium 10.1 (8.4-10.2) mg/dL AST 34 (17-59) U/L ALT 37 (21-72) U/L Alkaline Phosphatase 52 (38-126) U/L Total Protein 7.2 (6.3-8.2) g/dL Albumin 4.2 (3.5-5.0) g/dL Current Medications Generic Name Dose Route Start Last Admin Trade Name Freq PRN Reason Stop Dose Admin Acetaminophen 650 mg 06/24/19 22:43 06/24/19 23:09 Tylenol Tab PO 650 mg Q8HR PRN Administration Fever and/ or Pain Albuterol Sulfate 2.5 mg 06/24/19 22:39 Ventolin Nebulized INHALATION RT-QID PRN Shortness Of Breath Albuterol Sulfate 2.5 mg 06/25/19 08:00 06/25/19 09:24 Ventolin Nebulized INHALATION 2.5 mg RT-QID HI Administration Apixaban 5 mg 06/24/19 22:45 06/25/19 09:03 Eliquis PO 5 mg BID HI Administration Aspirin 325 mg 06/25/19 09:00 06/25/19 09:03 Aspirin PO 325 mg DAILY HI Administration Atorvastatin Calcium 20 mg 06/24/19 22:45 06/24/19 23:09 Lipitor PO 20 mg HS HI Administration Doxazosin Mesylate 8 mg 06/25/19 09:00 06/25/19 09:03 Cardura PO 8 mg DAILY HI Administration Fluticasone Propionate 1 spray 06/25/19 09:00 06/25/19 08:45 Flonase Nasal [place] EA NOSTRIL Not Given DAILY [facility] Sodium Chloride 1,000 mls @ 20 mls/hr 06/24/19 19:30 06/24/19 19:39 Saline 0.9% IV 20 mls/hr .Q24H HI Administration Levothyroxine Sodium 100 mcg 06/25/19 06:30 06/25/19 06:27 Synthroid PO 100 mcg DAILY@0630 HI Administration Metoprolol Tartrate 50 mg 06/25/19 09:00 Lopressor PO DAILY [facility] Montelukast Sodium 10 mg 06/24/19 22:45 06/24/19 23:09 Singulair PO 10 mg HS HI Administration Nitroglycerin 0.4 mg 06/24/19 19:29 Nitrostat SUBLINGUAL Q5M PRN Chest Pain Pantoprazole Sodium 40 mg 06/25/19 07:30 06/25/19 06:27 Protonix PO 40 mg AC-BRKFST HI Administration Intake and Output 06/24/19 06/25/19 06/25/19 22:59 06:59 14:59 Intake Total 240 Output Total 300 Balance 240 -300 Intake: Oral 240 Output: Urine 300 Other: Voiding Method Toilet # Voids 1 1 Weight 101.151 kg 99.7 kg 06/24/19 18:15 06/24/19 18:15
[2019-06-25] MEDS: ACETAMINOPHEN TAB 325 MG TAB PO PRN (20:18)
[2019-06-25] MEDS: MONTELUKAST 10 MG TAB PO SCH (20:18)
[2019-06-25] MEDS: ATORVASTATIN 20 MG TAB PO SCH (20:18)
[2019-06-26] MEDS: LEVOTHYROXINE 100 MCG TAB PO SCH (06:37)
[2019-06-26] MEDS: PANTOPRAZOLE 40 MG TABLET PO SCH (06:37)
[2019-06-26 06:42] VITALS: RESP 18
[2019-06-26] MEDS: SODIUM CHLORIDE 0.9% 1,000 ML IV SCH (07:40)
[2019-06-26] MEDS: METOPROLOL TARTRATE 50 MG TAB PO SCH (07:51)
[2019-06-26] MEDS: APIXABAN 5 MG TAB PO SCH (07:51)
[2019-06-26] MEDS: DOXAZOSIN 4 MG TAB PO SCH (07:51)
[2019-06-26] MEDS: FLUTICASONE 50MCG/SPRAY NASAL 16GM EA NOSTRIL SCH (07:51)
[2019-06-26] MEDS: ALBUTEROL NEBULIZED 2.5 MG/3 ML INHALATION SCH ×2 (08:52→11:51)
[2019-06-26] MEDS ORDERED: ASPIRIN 81 MG PO SCH (09:00)
[2019-06-26 11:17] VITALS: BP 100/62; TEMP 97.9
--- NOTE | 2019-06-26 12:01 | ECHOF ---
Referral Reason:LVF MEASUREMENTS -------- HEIGHT: 175.3 cm WEIGHT: 99.8 kg BP: RVIDd: 3.4 cm (< 3.3) IVSd: 1.7 cm (0.6 - 1.1) LVIDd: 4.9 cm (3.9 - 5.3) LVPWd: 1.8 cm (0.6 - 1.1) IVSs: 2.0 cm LVIDs: 4.2 cm LVPWs: 1.8 cm LA Diam: 5.0 cm (2.7 - 3.8) LAESV Index (A-L): 51.95 ml/m Ao Diam: 3.4 cm (2.0 - 3.7) AV Cusp: 1.8 cm (1.5 - 2.6) LA Diam: 4.5 cm (2.7 - 3.8) MV E Satya: 0.76 m/s MV DecT: 201 ms MV A Satya: 0.38 m/s MV E/A Ratio: 1.98 RAP: 5.00 mmHg RVSP: 39.18 mmHg FINDINGS -------- Paced rhythm. This was a technically adequate study. The left ventricular size is normal. There is severe concentric left ventricular hypertrophy. Ove rall left ventricular systolic function is mild-moderately impaired with, an EF between 40 - 45 %. The right ventricle is normal in size. The left atrium is markedly dilated. LA is severely dilated >40 ml/m2 The right atrial size is normal. There is mild aortic valve sclerosis. There is mild aortic regurgitation. Mild mitral annular calcification present. Mild mitral regurgitation is present. Mild tricuspid regurgitation present. There is mild pulmonary hypertension. The right ventricular systolic pressure, as measured by Doppler, is 39.18mmHg. There is no pulmonic regurgitation present. The aortic root size is normal. There is no pericardial effusion. CONCLUSIONS -------- 1. Paced rhythm. 2. This was a technically adequate study. 3. The left ventricular size is normal. 4. There is severe concentric left ventricular hypertrophy. 5. Overall left ventricular systolic function is mild-moderately impaired with, an EF between 40 - 45 %. 6. The right ventricle is normal in size. 7. The left atrium is markedly dilated. 8. LA is severely dilated >40 ml/m2 9. The right atrial size is normal. 10. There is mild aortic valve sclerosis. 11. There is mild aortic regurgitation. 12. Mild mitral annular calcification present. 13. Mild mitral regurgitation is present. 14. Mild tricuspid regurgitation present. 15. There is mild pulmonary hypertension. 16. The right ventricular systolic pressure, as measured by Doppler, is 39.18mmHg. 17. There is no pulmonic regurgitation present. 18. The aortic root size is normal. 19. There is no pericardial effusion. EMISSIONS REPAIR TECHNICIAN: Daniela Cook RDCS
[2019-06-26 12:02] VITALS: PULSE 84
[2019-06-26 12:37] LABS: Calcium 9.7 mg/dL (8.4-10.2); Potassium 3.3 mmol/L (3.5-5.1)
--- NOTE | 2019-06-26 12:55 | P.DS ---
Providers Date of admission: 06/24/19 19:29 Attending physician: Robby Fabian Consults: 06/24/19 19:49 Consult Physician Routine Consulting Provider: Karina Richmond Consult Reason/Comments: NSTEMI Do you want consulting provider notified?: Yes Primary care physician: Haim Renteriah[facility] Course: 79-year-old pleasant gentleman was admitted for possible low blood pressure although his blood pressure is 120 systolic and 60s diastolic at home. Patient was feeling weak and he believed blood pressure is the reason for that . Patient's heart rate was any teas his normal heart rate is in 50s as per the patient because of which patient came to ER and ER patient had stable mild elevation of troponins to 0.2 because of which patient was admitted for rule out acute current syndromes patient doesn't have any chest pain patient denied fever chills nausea vomiting diaphoresis. Patient was a valid by cardiology patient doesn't have any acute EKG changes cardiology is recommending echocardiogram and if echocardiogram doesn't show any wall motion abnormalities. Patient did recommending him to discharge the patient. Patient does have chronic kidney disease which may be responsible for his mild troponin elevation. Patient baseline creatinine 1.2. Patient is also on chlorthalidone may not be beneficialbecause of the his serum creatinine being 1.2 and this will be discontinued and patient will be discharged to follow up with primary care physician if cleared by cardiology. 06/26/2019 patient is clinically doing well. No overnight events patient is cleared by cardiology patient had an echocardiogram which did not show almost Wernicke's but showed EF of around 40-45% patient is not on KAILEE inhibitor at this time because of his concerns about hypotension which can beread as an outpatient. Patient is not requiring a diuretic therapy at this time down the line he may need it.patient's serum creatinine remains at 1.3 patient probably has chronic kidney diseasestage III PHYSICAL EXAMINATION: GENERAL: The patient is alert and oriented x3, not in any acute distress. Well developed, well nourished. HEENT: Pupils are round and equally reacting to light. EOMI. No scleral icterus. No conjunctival pallor. Normocephalic, atraumatic. No pharyngeal erythema. No thyromegaly. CARDIOVASCULAR: S1 and S2 present. No murmurs, rubs, or gallops. PULMONARY: Chest is clear to auscultation, no wheezing or crackles. ABDOMEN: Soft, nontender, nondistended, normoactive bowel sounds. No palpable organomegaly. MUSCULOSKELETAL: No joint swelling or deformity. EXTREMITIES: No cyanosis, clubbing, or pedal edema. NEUROLOGICAL: Gross neurological examination did not reveal any focal deficits. SKIN: No rashes. The hospital physician course and other medical problems please refer to my HPI from yesterday Patient Condition at Discharge: Serious Plan - Discharge Summary Discharge Rx Participant: No New Discharge Prescriptions: Discontinued Chlorthalidone [Hygroton] 25 mg PO DAILY No Action Metoprolol Tartrate [Lopressor] 50 mg PO DAILY Levothyroxine Sodium [Levoxyl] 100 mcg PO DAILY Doxazosin [Cardura] 8 mg PO DAILY Simvastatin [Zocor] 40 mg PO HS Omeprazole [PriLOSEC] 20 mg PO AC-BRKFST Ketoconazole 2% Cream [Nizoral 2%] 1 applic TOPICAL DAILY Apixaban [Eliquis] 5 mg PO BID Albuterol Nebulized [Ventolin Nebulized] 2.5 mg INHALATION RT-QID PRN PRN Reason: Shortness Of Breath Albuterol Sulfate [Ventolin HFA] 2 puff INHALATION RT-QID Ergocalciferol [Vitamin D2] 50,000 unit PO Q30D Fluticasone Nasal [place] [Flonase Nasal [place]] 1 spr EA NOSTRIL DAILY Montelukast [Singulair] 10 mg PO HS Discharge Medication List Doxazosin [Cardura] 8 mg PO DAILY 02/09/14 [History] Levothyroxine Sodium [Levoxyl] 100 mcg PO DAILY 02/09/14 [History] Metoprolol Tartrate [Lopressor] 50 mg PO DAILY 02/09/14 [History] Simvastatin [Zocor] 40 mg PO HS 02/09/14 [History] Ketoconazole 2% Cream [Nizoral 2%] 1 applic TOPICAL DAILY 09/12/14 [History] Omeprazole [PriLOSEC] 20 mg PO AC-BRKFST 09/12/14 [History] Apixaban [Eliquis] 5 mg PO BID 01/16/18 [History] Albuterol Nebulized [Ventolin Nebulized] 2.5 mg INHALATION RT-QID PRN 06/24/19 [History] Albuterol Sulfate [Ventolin HFA] 2 puff INHALATION RT-QID 06/24/19 [History] Ergocalciferol [Vitamin D2] 50,000 unit PO Q30D 06/24/19 [History] Fluticasone Nasal [place] [Flonase Nasal [place]] 1 spr EA NOSTRIL DAILY 06/24/19 [History] Montelukast [Singulair] 10 mg PO HS 06/24/19 [History] Follow up Appointment(s)/Referral(s): Haim Felder MD [Primary Care Provider] - 3 Days (please call to make appointment) Juan Nguyễn MD [Family Provider] - 1 Week (Office closed - please call to make appointment) Patient Instructions/Handouts: Heart Attack (DC) Discharge Disposition: HOME SELF-CARE
--- NOTE | 2019-06-26 13:36 | P.PN ---
Subjective Progress Note Date: 06/26/19 This is an 79-year-old male patient of Dr. Nguyễn with past medical history for chronic atrial fibrillation, coronary artery disease, history of myocardial infarction, hypertension, hyperlipidemia: Gastroesophageal reflux disease, hypothyroidism, benign prostatic hypertrophy. Patient states that 2 days ago his blood pressure was quite high for him at 149/90 and heart rate was 50. His normal blood pressure is 135/80. Yesterday he complained of weakness feeling tired shortness of breath with exertion and his blood pressure was 70/48 and heart rate 80. He had some mild abdominal pain and nausea reported in the emergency center which patient relates to gas pains which have recently evolved after he had a bowel movement this morning. CBC was unremarkable, electrolytes within normal limits, BUN 20 creatinine 1.26, liver function tests within normal limits. Troponin 0.252, 0.211, 0.219. CK 199, TSH 1.790. Triglycerides 150, cholesterol 123, LDL 56, HDL 37. Urinalysis blood small and RBCs 61. Patient's baseline creatinine is about 1.2. EKG shows atrial fibrillation with a left bundle branch block. Stress echocardiogram done in October 2016 revealed poor exercise tolerance is nondiagnostic due to baseline EKG abnormality. Abnormal stress echocardiogram with evidence of fixed hypokinesia involving the inferior basal and inferior basal lateral wall suggestive of prior myocardial infarction. No evidence of stress-induced ischemia. At the time of this evaluation, patient states that his symptoms of shortness of breath, weakness and tiredness have all resolved. 06/26: Patient is currently in atrial fibrillation running in the 90s. Blood pressure is improved. Patient denies any new complaints. No chest pain, shortness of breath. No lightheadedness or dizziness. Patient is anxious to be discharged home today. CBC is unremarkable. Comprehensive metabolic panel unremarkable. Gen: This is an 79-year-old male. He is resting in bed and appears comfortable and in no acute distress. No respiratory distress noted. Afebrile, blood pressure 100/62, pulse ox 96% on room air, heart rate 88. HEENT: Head is atraumatic, normocephalic. Pupils equal, round. Sclerae is anicteric. NECK: Supple. No JVD. No lymphadenopathy. No thyromegaly. LUNGS: Clear to auscultation. No wheezes or rhonchi. No intercostal retractions. HEART: Regular rate and rhythm. Systolic murmur at left sternal border. ABDOMEN: Soft. Bowel sounds are present. No masses. No tenderness. EXTREMITIES: No pedal edema. No calf tenderness. NEUROLOGICAL: Patient is awake, alert and oriented x3. Cranial nerves 2 through 12 are grossly intact. Assessment: Mild elevation in troponin without acute coronary syndrome Labile blood pressures Chronic atrial fibrillation History of coronary artery disease and myocardial infarction Hypothyroidism Benign prostatic hypertrophy Plan: Hold chlorthalidone Note patient is also on Cardura 8 mg daily Continue eliquis 5 mg twice daily and Lopressor 50 mg daily Continue aspirin to 81 mg daily, continue atorvastatin 20 mg daily Patient is cleared for discharge from cardiology Thank you kindly for this consultation Nurse practitioner note has been reviewed, I agree with documented findings and plan of care. Patient was seen and examined. Objective - Vital Signs Vital signs: Vital Signs Temp 97.9 F 06/26/19 11:08 Pulse 68 06/26/19 11:17 Resp 18 06/26/19 11:08 BP 100/62 06/26/19 11:08 Pulse Ox 96 06/26/19 11:08 Intake & Output 06/25/19 06/26/19 06/26/19 18:59 06:59 18:59 Intake Total 240 540 500 Output Total 500 Balance -260 540 500 Weight 99.4 kg Intake: Oral 240 540 500 Output: Urine 500 Other: Voiding Method Toilet # Voids 3 - Labs CBC & Chem 7: 06/24/19 18:15 06/26/19 12:04
== END 2019-06-26 12:59 | disposition home or self-care (01) | DRG 683 ==
LOC: EC 17:24 → 3SCARD 19:29
PROVIDERS: ADMIT Hospitalist; ATTEND Hospitalist
DX: I12.9 Hypertensive chronic kidney disease with stage 1 through stage 4 chronic kidney disease, or unspecified chronic kidney disease (principal); I48.20 Chronic atrial fibrillation, unspecified; N18.9 Chronic kidney disease, unspecified; E03.9 Hypothyroidism, unspecified; E78.5 Hyperlipidemia, unspecified; I25.10 Atherosclerotic heart disease of native coronary artery without angina pectoris; I25.2 Old myocardial infarction; I44.7 Left bundle-branch block, unspecified; K21.9 Gastro-esophageal reflux disease without esophagitis; N40.0 Benign prostatic hyperplasia without lower urinary tract symptoms; Z79.01 Long term (current) use of anticoagulants; Z79.890 Hormone replacement therapy; Z79.899 Other long term (current) drug therapy; Z80.7 Family history of other malignant neoplasms of lymphoid, hematopoietic and related tissues; Z85.828 Personal history of other malignant neoplasm of skin; Z87.891 Personal history of nicotine dependence; Z96.651 Presence of right artificial knee joint; Z79.51 Long term (current) use of inhaled steroids; Z91.040 Latex allergy status; Z91.011 Allergy to milk products; Z88.5 Allergy status to narcotic agent; Z91.048 Other nonmedicinal substance allergy status; Z98.42 Cataract extraction status, left eye
CPT/HCPCS: 36415; 80048; 80053; 80061; 81001; 82550; 83605; 83735; 84100; 84443; 84484; 85025; 85610; 85730; 93005; 93306; 94640; 96360; 96361; 99291; 99292

== ENCOUNTER 2019-07-13 10:56 | Observation (INO) | payer MEDICARE ==
[2019-07-13] MEDS ORDERED: SODIUM CHLORIDE 0.9% 500 ML 500 ML IV STA (11:48)
[2019-07-13 11:59] LABS: Basophils # (A) 0.1 k/uL (0-0.2); Basophils % (A) 1 %; Eosinophils # (A) 0.2 k/uL (0-0.7); Eosinophils % (A) 3 %; HCT 37.6 % (39.0-53.0); HGB 12.5 gm/dL (13.0-17.5); Lymphocytes # (A) 1.3 k/uL (1.0-4.8); Lymphocytes % (A) 17 %; MCH 30.8 pg (25.0-35.0); MCHC 33.2 g/dL (31.0-37.0); MCV 92.9 fL (80.0-100.0); Mean Platelet Volume 6.6; Monocytes # (A) 0.4 k/uL (0-1.0); Monocytes % (A) 5 %; Neutrophils # (A) 5.9 k/uL (1.3-7.7); Neutrophils % (A) 73 %; Platelet Count 333 k/uL (150-450); RBC 4.05 m/uL (4.30-5.90); RDW 12.8 % (11.5-15.5)
--- NOTE | 2019-07-13 12:06 | XR ---
EXAMINATION TYPE: XR chest 2V DATE OF EXAM: 07/13/2019 COMPARISON: 02/09/2014 TECHNIQUE: PA and lateral views submitted. HISTORY: Difficulty breathing FINDINGS: The heart is mildly prominent and there is mild central interstitial prominence. Arthropathy shoulder s. By basilar infiltrate and small effusion. Atherosclerotic change aorta. Hypertrophic and degenerat danielle change of the spine. IMPRESSION: 1. 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
[2019-07-13 12:13] LABS: INR 1.1 (<1.2); Partial Thromboplastin Time 28.9 sec (22.0-30.0); Prothrombin Time 11.4 sec (9.0-12.0)
[2019-07-13 12:19] LABS: Albumin 3.7 g/dL (3.5-5.0); Calcium 9.1 mg/dL (8.4-10.2); Potassium 3.2 mmol/L (3.5-5.1); Total Bilirubin 0.9 mg/dL (0.2-1.3); Total Protein 6.4 g/dL (6.3-8.2)
--- NOTE | 2019-07-13 12:29 | ED ---
URI HPI - General Chief Complaint: Upper Respiratory Infection Stated Complaint: URI Time Seen by Provider: 07/13/19 11:28 Source: patient Mode of arrival: wheelchair Limitations: no limitations - History of Present Illness Initial Comments: Patient is an 79-year-old male presenting to emergency Department with complaints of cough and shortness of breath 5 days. Patient states he was admitted to this hospital approximately 3 weeks ago for an [place]. Patient has followed up with Dr. Felder with his most recent follow-up 5 days ago. Patient was started on Lasix for fluid as well as Levaquin. Patient has been on Levaquin for 6 days. Patient states he is still having a productive cough as well as feeling short of breath and increase in fatigue. Patient has not been eating as much as usual. Patient denies fever, chills, chest pain, difficulty in breathing, nausea, vomiting. Patient does admit to mild diarrhea. Patient has no other complaints at this time. Upon arrival to the ER, vital signs are stable. - Related Data Home Medications Medication Instructions Recorded Confirmed Doxazosin [Cardura] 8 mg PO DAILY 02/09/14 07/13/19 Levothyroxine Sodium [Levoxyl] 100 mcg PO DAILY 02/09/14 07/13/19 Metoprolol Tartrate [Lopressor] 50 mg PO DAILY 02/09/14 07/13/19 Simvastatin [Zocor] 40 mg PO HS 02/09/14 07/13/19 Ketoconazole 2% Cream [Nizoral 2%] 1 applic TOPICAL DAILY 09/12/14 07/13/19 Omeprazole [PriLOSEC] 20 mg PO AC-BRKFST 09/12/14 07/13/19 Apixaban [Eliquis] 5 mg PO BID 01/16/18 07/13/19 Albuterol Nebulized [Ventolin 2.5 mg INHALATION RT-QID PRN 06/24/19 07/13/19 Nebulized] Albuterol Sulfate [Ventolin HFA] 2 puff INHALATION RT-QID 06/24/19 07/13/19 Ergocalciferol [Vitamin D2] 50,000 unit PO Q30D 06/24/19 07/13/19 Fluticasone Nasal [place] [Flonase 1 spr EA NOSTRIL DAILY 06/24/19 07/13/19 Nasal [place]] Montelukast [Singulair] 10 mg PO HS 06/24/19 07/13/19 Furosemide [Lasix] 40 mg PO DAILY 07/13/19 07/13/19 Levofloxacin 500 mg PO DAILY 07/13/19 07/13/19 Allergies Allergy/AdvReac Type Severity Reaction Status Date / Time Milk Containing Products Allergy Diarrhea Verified 07/13/19 11:04 silicone Allergy Rash/Hives Verified 07/13/19 11:04 hydromorphone HCl AdvReac Nausea & Verified 07/13/19 11:04 [From Dilaudid] Vomiting powder from latex gloves Allergy Rash/Hives Uncoded 05/07/18 07:52 Review of Systems ROS Statement: Those systems with pertinent positive or pertinent negative responses have been documented in the HPI. ROS Other: All systems not noted in ROS Statement are negative. Past Medical History Past Medical History: Atrial Fibrillation, Coronary Artery Disease (CAD), GERD/Reflux, Hyperlipidemia, Hypertension, Myocardial Infarction ([place]), Prostate Disorder, Thyroid Disorder Additional Past Medical History / Comment(s): Enlarged Prostate, States [place] 30 y ears ago. Last Myocardial Infarction Date:: 1987 History of Any Multi-Drug Resistant Organisms: None Reported Past Surgical History: Heart Catheterization, Hernia Repair, Orthopedic Surgery Additional Past Surgical History / Comment(s): skin cancer, L eye cataract, R knee replacement Past Anesthesia/Blood Transfusion Reactions: No Reported Reaction Past Psychological History: No Psychological Hx Reported Smoking Status: Former smoker Past Alcohol Use History: None Reported Past Drug Use History: None Reported - Past Family History Mother Family Medical History: No Reported History Sister(s) Family Medical History: Cancer Additional Family Medical History / Comment(s): Ovarian Brother(s) Family Medical History: Cancer Additional Family Medical History / Comment(s): Non-Hodgkins Lymphoma General Exam - General Exam Comments Initial Comments: GENERAL: Patient appears fatigued, well-nourished and in no acute distress. HEAD: Atraumatic, normocephalic. EYES: Pupils equal round and reactive to light, extraocular movements intact, sclera anicteric, conjunctiva are normal. ENT: TMs normal, nares patent, oropharynx clear without exudates. Moist mucous membranes. NECK: Normal range of motion, supple without lymphadenopathy or JVD. LUNGS: Breath sounds clear to auscultation bilaterally and equal. No wheezes rales or rhonchi. HEART: Irregular rate and rhythm without murmurs, rubs or gallops. ABDOMEN: Soft, nontender, normoactive bowel sounds. No guarding, no rebound. No masses appreciated. EXTREMITIES: Normal range of motion, no pitting or edema. No clubbing or cyanosis. NEUROLOGICAL: Cranial nerves II through XII grossly intact. Normal speech, normal gait. PSYCH: Normal mood, normal affect. SKIN: Warm, Dry, normal turgor, no rashes or lesions noted. Limitations: no limitations Course Vital Signs 07/13/19 07/13/19 07/13/19 11:02 11:20 11:21 Temperature 97.9 F Pulse Rate 62 Respiratory 20 20 Rate Blood Pressure 147/85 O2 Sat by Pulse 97 95 Oximetry 07/13/19 07/13/19 07/13/19 11:30 11:40 11:50 Temperature Pulse Rate 80 88 73 Respiratory 27 H 18 16 Rate Blood Pressure 136/87 142/89 142/89 O2 Sat by Pulse 96 96 96 Oximetry 07/13/19 07/13/19 07/13/19 12:00 12:10 12:20 Temperature Pulse Rate 74 80 71 Respiratory 30 H 21 23 Rate Blood Pressure 142/89 136/80 136/80 O2 Sat by Pulse 99 94 L 95 Oximetry 07/13/19 12:30 Temperature Pulse Rate 75 Respiratory 25 H Rate Blood Pressure 136/80 O2 Sat by Pulse 95 Oximetry Medical Decision Making - Medical Decision Making Patient is an 79-year-old male presenting with a cough, fatigue, shortness of breath 5 days. Patient is currently on Levaquin 5 days. Patient denies recent fever, chills. Vital signs are stable today. CBC is normal today. Coags are normal. Potassium is 3.2, sodium 146. Troponin is 0.052. UA is within normal limits. Chest x-ray shows bilateral infiltrate and small effusion. EKG shows A. fib, left BBB, no acute changes. Given patient's history and elevated troponin and patient will be admitted with cardio consult. Patient is agreement with this plan of care. Patient was accepted by Dr. Felder. Case discussed with Dr. Tobias who is in agreement with this plan of care. - Lab Data Result diagrams: 07/13/19 11:36 07/13/19 11:36 Lab Results 07/13/19 07/13/19 07/13/19 Range/Units 11:36 11:36 11:36 WBC 8.0 (3.8-10.6) k/uL RBC 4.05 L (4.30-5.90) m/uL Hgb 12.5 L (13.0-17.5) gm/dL Hct 37.6 L (39.0-53.0) % MCV 92.9 (80.0-100.0) fL MCH 30.8 (25.0-35.0) pg MCHC 33.2 (31.0-37.0) g/dL RDW 12.8 (11.5-15.5) % Plt Count 333 (150-450) k/uL Neutrophils % 73 % Lymphocytes % 17 % Monocytes % 5 % Eosinophils % 3 % Basophils % 1 % Neutrophils # 5.9 (1.3-7.7) k/uL Lymphocytes # 1.3 (1.0-4.8) k/uL Monocytes # 0.4 (0-1.0) k/uL Eosinophils # 0.2 (0-0.7) k/uL Basophils # 0.1 (0-0.2) k/uL PT 11.4 (9.0-12.0) sec INR 1.1 (<1.2) APTT 28.9 (22.0-30.0) sec Sodium 146 H (137-145) mmol/L Potassium 3.2 L (3.5-5.1) mmol/L Chloride 109 H (98-107) mmol/L Carbon Dioxide 27 (22-30) mmol/L Anion Gap 10 mmol/L BUN 20 (9-20) mg/dL Creatinine 1.10 (0.66-1.25) mg/dL Est GFR (CKD-EPI)AfAm 73 (>60 ml/min/1.73 sqM) Est GFR (CKD-EPI)NonAf 63 (>60 ml/min/1.73 sqM) Glucose 148 H (74-99) mg/dL Calcium 9.1 (8.4-10.2) mg/dL Total Bilirubin 0.9 (0.2-1.3) mg/dL AST 30 (17-59) U/L ALT 34 (21-72) U/L Alkaline Phosphatase 72 (38-126) U/L Troponin I (0.000-0.034) ng/mL Total Protein 6.4 (6.3-8.2) g/dL Albumin 3.7 (3.5-5.0) g/dL Urine Color Urine Appearance (Clear) Urine pH (5.0-8.0) Ur Specific [place] (1.001-1.035) Urine Protein (Negative) Urine Glucose (UA) (Negative) Urine Ketones (Negative) Urine Blood (Negative) Urine Nitrite (Negative) Urine Bilirubin (Negative) Urine Urobilinogen (<2.0) mg/dL Ur Leukocyte Esterase (Negative) Urine RBC (0-5) /hpf Urine WBC (0-5) /hpf Urine Bacteria (None) /hpf Hyaline Casts (0-2) /lpf Urine Mucus (None) /hpf 07/13/19 07/13/19 Range/Units 11:36 12:46 WBC (3.8-10.6) k/uL RBC (4.30-5.90) m/uL Hgb (13.0-17.5) gm/dL Hct (39.0-53.0) % MCV (80.0-100.0) fL MCH (25.0-35.0) pg MCHC (31.0-37.0) g/dL RDW (11.5-15.5) % Plt Count (150-450) k/uL Neutrophils % % Lymphocytes % % Monocytes % % Eosinophils % % Basophils % % Neutrophils # (1.3-7.7) k/uL Lymphocytes # (1.0-4.8) k/uL Monocytes # (0-1.0) k/uL Eosinophils # (0-0.7) k/uL Basophils # (0-0.2) k/uL PT (9.0-12.0) sec INR (<1.2) APTT (22.0-30.0) sec Sodium (137-145) mmol/L Potassium (3.5-5.1) mmol/L Chloride (98-107) mmol/L Carbon Dioxide (22-30) mmol/L Anion Gap mmol/L BUN (9-20) mg/dL Creatinine (0.66-1.25) mg/dL Est GFR (CKD-EPI)AfAm (>60 ml/min/1.73 sqM) Est GFR (CKD-EPI)NonAf (>60 ml/min/1.73 sqM) Glucose (74-99) mg/dL Calcium (8.4-10.2) mg/dL Total Bilirubin (0.2-1.3) mg/dL AST (17-59) U/L ALT (21-72) U/L Alkaline Phosphatase (38-126) U/L Troponin I 0.052 H* (0.000-0.034) ng/mL Total Protein (6.3-8.2) g/dL Albumin (3.5-5.0) g/dL Urine Color Yellow Urine Appearance Clear (Clear) Urine pH 5.0 (5.0-8.0) Ur Specific [place] 1.014 (1.001-1.035) Urine Protein Negative (Negative) Urine Glucose (UA) Negative (Negative) Urine Ketones Negative (Negative) Urine Blood Negative (Negative) Urine Nitrite Negative (Negative) Urine Bilirubin Negative (Negative) Urine Urobilinogen <2.0 (<2.0) mg/dL Ur Leukocyte Esterase Trace H (Negative) Urine RBC 1 (0-5) /hpf Urine WBC 2 (0-5) /hpf Urine Bacteria Rare H (None) /hpf Hyaline Casts 5 H (0-2) /lpf Urine Mucus Rare H (None) /hpf - EKG Data EKG Comments: Ventricular rate 87, QRS duration 172, QTC 536. A. fib, left BBB, abnormal EKG. No acute changes noted. EKG similar to previous on 06/25/2019. Disposition Clinical Impression: Weakness, Elevated troponin, Upper respiratory tract infection Disposition: ADMITTED IP TO THIS HOSP Condition: Stable Is patient prescribed a controlled substance at d/c from ED?: No Decision Date: 07/13/19 Decision Time: 13:31
[2019-07-13 13:01] LABS: Appearance,Urine Clear (Clear); Bacteria,Urine Rare /hpf; Bilirubin,Urine Negative (Negative); Blood,Urine Negative (Negative); Color,Urine Yellow; Glucose,Urine (UA) Negative (Negative); Hyaline Casts,Urine 5 /lpf (0-2); Ketones,Urine Negative (Negative); Leukocyte Esterase,Urine Trace (Negative); Mucus,Urine Rare /hpf; Nitrite,Urine Negative (Negative); Protein,Urine Negative (Negative); RBC,Urine 1 /hpf (0-5); Specific Gravity,Urine 1.014 (1.001-1.035); Urobilinogen,Urine <2.0 mg/dL (<2.0); WBC,Urine 2 /hpf (0-5)
[2019-07-13] MEDS ORDERED: ACETAMINOPHEN TAB 325 MG TAB PO PRN (13:25)
[2019-07-13] MEDS ORDERED: ONDANSETRON 4 MG/2 ML VIAL IVP PRN (13:25)
[2019-07-13] MEDS ORDERED: NALOXONE 0.4 MG/ML 1 ML VIAL IV PRN (13:25)
[2019-07-13] MEDS ORDERED: LISINOPRIL 10 MG TAB PO STA (18:33)
[2019-07-13] MEDS: POTASSIUM CHLORIDE ER 20 MEQ TAB.ER PO SCH (22:01)
[2019-07-13] MEDS: APIXABAN 5 MG TAB PO SCH (22:02)
[2019-07-13] MEDS: MONTELUKAST 10 MG TAB PO SCH (22:02)
[2019-07-14] MEDS ORDERED: busPIRone HCl 5 MG TAB PO STA (01:01)
[2019-07-14] MEDS ORDERED: FUROSEMIDE 10 MG/ML 4 ML VIAL IV STA (01:02)
[2019-07-14] MEDS: PANTOPRAZOLE 40 MG TABLET PO SCH (06:38)
[2019-07-14] MEDS: LEVOTHYROXINE 88 MCG TAB PO SCH (06:38)
[2019-07-14] MEDS: DOXAZOSIN 4 MG TAB PO SCH (08:04)
[2019-07-14] MEDS: SPIRONOLACTONE 25 MG TAB PO SCH (08:04)
[2019-07-14] MEDS: METOPROLOL SUCCINATE (ER) 50 MG TAB.ER.24H PO SCH (08:04)
[2019-07-14] MEDS: ASCORBIC ACID 500 MG TAB PO SCH (08:04)
[2019-07-14] MEDS: FLUTICASONE 50MCG/SPRAY NASAL 16GM EA NOSTRIL SCH (08:04)
[2019-07-14] MEDS: APIXABAN 5 MG TAB PO SCH ×2 (08:04→21:18)
[2019-07-14] MEDS: POTASSIUM CHLORIDE ER 20 MEQ TAB.ER PO SCH ×2 (08:05→21:19)
[2019-07-14] MEDS: FUROSEMIDE 40 MG TAB PO SCH (08:05)
[2019-07-14] MEDS: SODIUM CHLORIDE 0.9% 1,000 ML IV SCH ×2 (08:06→08:07)
[2019-07-14 09:18] LABS: Calcium 9.6 mg/dL (8.4-10.2); Potassium 3.5 mmol/L (3.5-5.1)
--- NOTE | 2019-07-14 11:50 | ECHOF ---
Referral Reason:AF, CHF, elev. troponin MEASUREMENTS -------- HEIGHT: 175.3 cm WEIGHT: 99.8 kg BP: 173/103 IVSd: 2.6 cm (0.6 - 1.1) LVIDd: 5.1 cm (3.9 - 5.3) LVPWd: 2.0 cm (0.6 - 1.1) IVSs: 2.0 cm LVIDs: 4.5 cm LVPWs: 2.0 cm RVIDd: 2.3 cm (< 3.3) LAESV Index (A-L): 51.07 ml/m Ao Diam: 3.1 cm (2.0 - 3.7) LA Diam: 4.1 cm (2.7 - 3.8) AV Cusp: 1.9 cm (1.5 - 2.6) EPSS: 0.8 cm AR PHT: 152 ms RAP: 5.00 mmHg RVSP: 25.50 mmHg MV EF SLOPE: 47.02 mm/s (70 - 150) MV EXCURSION: 12.17 mm (> 18.000) FINDINGS -------- Atrial fibrillation. This was a technically difficult study with suboptimal views. The left ventricular size is normal. There is severe concentric left ventricular hypertrophy. The re is severe global hypokinesis of LV . Overall left ventricular systolic function is severely impa ired with, an EF between 20 - 25 %. Left ventricular fillimg pressure cannot be estimated due to At rial fibrillation. The right ventricle is normal in size. LA is severely dilated >40 ml/m2 The right atrial size is normal. Lumason used The aortic valve is trileaflet and appears structurally normal. Trace amount of aortic regurgitatio n. The mitral valve is normal. The mitral valve leaflets are mildly thickened. Mild mitral regurgita tion is present. The tricuspid valve appears structurally normal. Mild tricuspid regurgitation present. Right vent ricular systolic pressure is normal at < 35 mmHg. There is no pulmonic regurgitation present. The aortic root size is normal. IVC Not well visulized. There is a trivial pericardial effusion present. CONCLUSIONS -------- 1. Atrial fibrillation. 2. This was a technically difficult study with suboptimal views. 3. The left ventricular size is normal. 4. There is severe concentric left ventricular hypertrophy. 5. There is severe global hypokinesis of LV . 6. Overall left ventricular systolic function is severely impaired with, an EF between 20 - 25 %. 7. Left ventricular fillimg pressure cannot be estimated due to Atrial fibrillation. 8. The right ventricle is normal in size. 9. LA is severely dilated >40 ml/m2 10. The right atrial size is normal. 11. Lumason used 12. The aortic valve is trileaflet and appears structurally normal. 13. Trace amount of aortic regurgitation. 14. The mitral valve is normal. 15. The mitral valve leaflets are mildly thickened. 16. Mild mitral regurgitation is present. 17. The tricuspid valve appears structurally normal. 18. Mild tricuspid regurgitation present. 19. Right ventricular systolic pressure is normal at < 35 mmHg. 20. There is no pulmonic regurgitation present. 21. The aortic root size is normal. 22. IVC Not well visulized. 23. There is a trivial pericardial effusion present. STAFF EDITOR: Freda Wolff RDCS
[2019-07-14] MEDS: ALBUTEROL NEBULIZED 2.5 MG/3 ML INHALATION PRN ×2 (12:00→20:00)
--- NOTE | 2019-07-14 12:23 | P.CRDCN ---
History of Present Illness Consult date: 07/14/19 Chief complaint: Shortness of breath History of present illness: This is a pleasant 79-year-old gentleman who sees Dr. Nguyễn in the office on reg ular basis with a past medical history significant for long standing persistent atrial fibrillation and the patient currently is on oral anticoagulation, chronic shortness of breath, hypertension, and dyslipidemia, presented to the emergency room complaining of shortness of breath associated with cough for the last several days. The patient symptoms started about a week ago where he was experiencing cough productive of sputum. He stated he had no fever but he developed some chills. Initially he was seen by his primary care physician who started him on medication, unknown at this point, and the patient did not feel better and decided to come to the emergency room. He stated that the shortness of breath has been increasing and the cough was not getting better. He denies any symptoms of chest pain or chest discomfort, feeling of heart racing or fluttering, dizziness, or syncope. No lower extremities edema. Before he presented to the hospital he was tried on Levaquin without any improvement. In the ER, the EKG showed underlying atrial fibrillation. Chest x-ray showed mild congestion. The BNP is slightly elevated. Troponin is slightly elevated. Beside that an echocardiogram was performed and revealed severe cardiomyopathy was EF around 20%. I am not quite sure if that cardiomyopathy is known to the patient or something known from before there is no old echo in the system but would get an echo from the office. The patient is on maximize medical treatment for the cardiomyopathy including metoprolol, lisinopril, as well as Aldactone. Overall he is feeling slightly better. Past Medical History Past Medical History: Atrial Fibrillation, Coronary Artery Disease (CAD), GERD/Reflux, Hyperlipidemia, Hypertension, Myocardial Infarction ([place]), Prostate Disorder, Thyroid Disorder Additional Past Medical History / Comment(s): Enlarged Prostate, States [place] 30 years ago. Last Myocardial Infarction Date:: 1987 History of Any Multi-Drug Resistant Organisms: None Reported Past Surgical History: Heart Catheterization, Hernia Repair, Orthopedic Surgery Additional Past Surgical History / Comment(s): skin cancer, L eye cataract, R knee replacement Past Anesthesia/Blood Transfusion Reactions: No Reported Reaction Past Psychological History: No Psychological Hx Reported Smoking Status: Former smoker Past Alcohol Use History: None Reported Past Drug Use History: None Reported - Past Family History Mother Family Medical History: No Reported History Sister(s) Family Medical History: Cancer Additional Family Medical History / Comment(s): Ovarian Brother(s) Family Medical History: Cancer Additional Family Medical History / Comment(s): Non-Hodgkins Lymphoma Medications and Allergies Home Medications Medication Instructions Recorded Confirmed Type Doxazosin [Cardura] 8 mg PO DAILY 02/09/14 07/13/19 History Simvastatin [Zocor] 40 mg PO HS 02/09/14 07/13/19 History Ketoconazole 2% Cream [Nizoral 2%] 1 applic TOPICAL DAILY 09/12/14 07/13/19 History Omeprazole [PriLOSEC] 20 mg PO AC-BRKFST 09/12/14 07/13/19 History Apixaban [Eliquis] 5 mg PO BID 01/16/18 07/13/19 History Albuterol Nebulized [Ventolin 2.5 mg INHALATION RT-QID PRN 06/24/19 07/13/19 His tory Nebulized] Albuterol Sulfate [Ventolin HFA] 2 puff INHALATION RT-QID PRN 06/24/19 07/13/19 History Ergocalciferol [Vitamin D2] 50,000 unit PO Q30D 06/24/19 07/13/19 History Fluticasone Nasal [place] [Flonase 1 spray EA NOSTRIL DAILY 06/24/19 07/13/19 History Nasal [place]] Montelukast [Singulair] 10 mg PO HS 06/24/19 07/13/19 History Ascorbic Acid [Vitamin C] 1,000 mg PO DAILY 07/13/19 07/13/19 History Calcium Carbonate [Calcium] 600 mg PO DAILY 07/13/19 07/13/19 History Furosemide [Lasix] 40 mg PO DAILY 07/13/19 07/13/19 History Levofloxacin 500 mg PO DAILY 07/13/19 07/13/19 History Levothyroxine Sodium [Synthroid] 88 mcg PO DAILY 07/13/19 07/13/19 History Metoprolol Succinate (ER) [Toprol 50 mg PO DAILY 07/13/19 07/13/19 History Xl] Multivitamins, Thera [Multivitamin 1 tab PO DAILY 07/13/19 07/13/19 History (formulary)] Vitamin B-12(Unknown Dsoe) 1 tab PO DAILY 07/13/19 07/13/19 History Allergies Allergy/AdvReac Type Severity Reaction Status Date / Time Milk Containing Products Allergy Diarrhea Verified 07/13/19 15:00 silicone Allergy Rash/Hives Verified 07/13/19 15:00 hydromorphone HCl AdvReac Nausea & Verified 07/13/19 15:00 [From Dilaudid] Vomiting powder from latex gloves Allergy Rash/Hives Uncoded 07/13/19 15:00 Physical Exam Vitals: Vital Signs Temp Pulse Pulse Resp BP BP Pulse Ox 07/14/19 12:15 76 07/14/19 12:05 76 07/14/19 11:05 80 18 127/76 95 07/14/19 08:00 97.7 F 89 18 174/94 95 07/14/19 04:00 97.8 F 72 18 177/88 96 07/14/19 00:00 98.0 F 82 18 173/103 95 07/13/19 20:00 98.2 F 81 18 174/81 95 07/13/19 15:36 97.4 F L 62 18 155/75 99 07/13/19 12:30 75 25 H 136/80 95 07/13/19 12:20 71 23 136/80 95 Intake and Output 07/13/19 07/14/19 07/14/19 22:59 06:59 14:59 Intake Total 200 354 Output Total 200 Balance 200 -200 354 Intake: Oral 200 354 Output: Urine 200 Other: Voiding Method Toilet Toilet # Voids 1 2 Weight 99.8 kg - Constitutional General appearance: no acute distress - Respiratory Respiratory: bilateral: diminished - Cardiovascular Rhythm: irregularly irregular Heart sounds: normal: S1, S2 Results 07/13/19 11:36 07/14/19 08:02 Cardiac Enzymes 07/13/19 07/13/19 07/13/19 Range/Units 11:36 11:36 18:42 AST 30 (17-59) U/L Troponin I 0.052 H* 0.057 H* (0.000-0.034) ng/mL Comprehensive Metabolic Panel 07/13/19 07/14/19 Range/Units 11:36 08:02 Sodium 146 H 145 (137-145) mmol/L Potassium 3.2 L 3.5 (3.5-5.1) mmol/L Chloride 109 H 104 (98-107) mmol/L Carbon Dioxide 27 30 (22-30) mmol/L BUN 20 18 (9-20) mg/dL Creatinine 1.10 1.12 (0.66-1.25) mg/dL Glucose 148 H 177 H (74-99) mg/dL Calcium 9.1 9.6 (8.4-10.2) mg/dL AST 30 (17-59) U/L ALT 34 (21-72) U/L Alkaline Phosphatase 72 (38-126) U/L Total Protein 6.4 (6.3-8.2) g/dL Albumin 3.7 (3.5-5.0) g/dL Current Medications Generic Name Dose Route Start Last Admin Trade Name Freq PRN Reason Stop Dose Admin Acetaminophen 650 mg 07/13/19 13:25 Tylenol Tab PO Q6HR PRN Mild Pain or Fever > 100.5 Albuterol Sulfate 2.5 mg 07/13/19 18:29 07/14/19 12:00 Ventolin Nebulized INHALATION 2.5 mg RT-QID PRN Administration Shortness Of Breath Apixaban 5 mg 07/13/19 21:00 07/14/19 08:04 Eliquis PO 5 mg BID HI Administration Ascorbic Acid 1,000 mg 07/14/19 09:00 07/14/19 08:04 Vitamin C PO 1,000 mg DAILY HI Administration Doxazosin Mesylate 8 mg 07/14/19 09:00 07/14/19 08:04 Cardura PO 8 mg DAILY HI Administration Fluticasone Propionate 1 spray 07/14/19 09:00 07/14/19 08:04 Flonase Nasal [place] EA NOSTRIL 1 spray DAILY HI Administration Furosemide 40 mg 07/14/19 09:00 07/14/19 08:05 Lasix PO 40 mg DAILY HI Administration Sodium Chloride 1,000 mls @ 60 mls/hr 07/13/19 13:30 07/14/19 08:07 Saline 0.9% IV Not Given .[id number] HI Levothyroxine Sodium 88 mcg 07/14/19 06:30 07/14/19 06:38 Synthroid PO 88 mcg DAILY@0630 HI Administration Metoprolol Succinate 50 mg 07/14/19 09:00 07/14/19 08:04 Toprol Xl PO 50 mg DAILY HI Administration Montelukast Sodium 10 mg 07/13/19 21:00 07/13/19 22:02 Singulair PO 10 mg HS HI Administration Naloxone HCl 0.2 mg 07/13/19 13:25 Narcan IV Q2M PRN Opioid Reversal Ondansetron HCl 4 mg 07/13/19 13:25 Zofran IVP Q8HR PRN Nausea And Vomiting Pantoprazole Sodium 40 mg 07/14/19 07:30 07/14/19 06:38 Protonix PO 40 mg AC-BRKFST HI Administration Potassium Chloride 20 meq 07/13/19 21:00 07/14/19 08:05 K-Dur 20 PO 20 meq BID HI Administration Spironolactone 25 mg 07/14/19 09:00 07/14/19 08:04 Aldactone PO 25 mg DAILY HI Administration Trazodone HCl 50 mg 07/14/19 21:00 Desyrel PO HS HI Intake and Output 07/13/19 07/14/19 07/14/19 22:59 06:59 14:59 Intake Total 200 354 Output Total 200 Balance 200 -200 354 Intake: Oral 200 354 Output: Urine 200 Other: Voiding Method Toilet Toilet # Voids 1 2 Weight 99.8 kg 07/13/19 11:36 07/14/19 08:02 Assessment and Plan Assessment: Assessment #1 shortness of breath associated with cough. Patient could have tracheobronchitis #2 the patient doesn't seems in overt congestive heart failure at this point #3 long-standing persistent atrial fibrillation on oral anticoagulation #4 severe cardiomyopathy of unknown etiology #5 multiple comorbid conditions Plan #1 continue the current medical regimen. The patient is on [facility] t reatment for the cardiomyopathy #2 obtain the previous medical records including any previous heart catheterization and an echocardiogram #3 continue monitor the kidney function as well as electrolytes #4 continue oral anticoagulation #5 follow-up with the patient
--- NOTE | 2019-07-14 12:29 | HP ---
HISTORY AND PHYSICAL CHIEF COMPLAINT: Shortness of breath. HISTORY OF PRESENT ILLNESS: This is another admission for this 79-year-old white male. He was in the hospital recently with shortness of breath and some dependent edema. Chest x-ray at that time demonstrated cardiomegaly and infiltrative changes all consistent with CHF. He was started on program and felt to have diaphoresis. However, he went home, became more short of breath and came into the emergency room in congestive heart failure. His troponin was also elevated. He had not had any chest pain. He had no fever and chills, sputum production, etc. He has had no diaphoresis. He has had no radiation of pain. REVIEW OF SYSTEMS: He has had no CVAs, TIAs, neurologic problems, difficulty with vision. 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 He has had no murmurs, rheumatic fever, abdominal pain, nausea, vomiting, hematemesis, melena, hematochezia, jaundice, hematuria, frequency, urgency, renal failure, incontinence, nocturia, etc. 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 He is on metoprolol succinate 50 mg once a day, Eliquis 5 mg b.i.d. for atrial fibrillation, Ventolin inhaler, simvastatin 40 mg at bedtime, montelukast 10 mg once a day, levothyroxine 0.088 once a day, doxazosin 4 mg at bedtime, vitamin D, omeprazole, updrafts and albuterol. Surgically he has had a right knee replacement and a procedure on the left foot as well as a hernia repair. He used to smoke but has not for years. He does not drink. PHYSICAL EXAMINATION: Blood pressure is 116/65 with a pulse of 84, irregularly irregular. Respirations were 33. He is afebrile. In general, he appeared to be slightly short of breath. Skin was dry, but slightly pale. Head, ears, eyes, nose, mouth, and throat were normal and neck veins were slightly distended sitting upright. Chest demonstrated rales in the bases. Breath sounds were decreased throughout. The cardiac exam demonstrated atrial fibrillation with no murmurs or extra sounds. The abdomen is soft and protuberant and the abdomen is nontender. There are no masses. Extremities are normal. Neurologically, he is intact. He is admitted to the hospital with diagnoses: 1. Shortness of breath. 2. Elevated troponin. 3. Congestive heart failure. 4. Atrial fibrillation. 5. History of hypertension. PLAN: 1. Bed rest. 2. IV fluids. 3. Serial EKGs and enzymes. 4. Echocardiogram. 5. Start diuresis. 6. Consult with Cardiology. SURINDER / KWAN: [id number] /
--- NOTE | 2019-07-14 12:29 | PN ---
PROGRESS NOTE DATE OF SERVICE: 07/14/2019. CHIEF COMPLAINT: Congestive heart failure. HISTORY OF PRESENT ILLNESS: This gentleman is indisposed at the time, but his second troponin is elevated. He is not having any chest pain or increased shortness of breath. Additional studies been ordered and he is to be seen by Cardiology. PHYSICAL EXAM: Deferred. IMPRESSION: 1. Acute congestive heart failure. 2. Elevated troponins. 3. Rule out coronary artery disease. 4. Atrial fibrillation. PLAN: 1. Echocardiogram. 2. Await Cardiology evaluation. MMODL / IJN: [id number] /
[2019-07-14] MEDS ORDERED: traZODone HCL 50 MG TAB PO SCH (21:00)
[2019-07-14] MEDS: MONTELUKAST 10 MG TAB PO SCH (21:19)
[2019-07-15 06:49] LABS: Appearance,Urine Clear (Clear); Bilirubin,Urine Negative (Negative); Blood,Urine Negative (Negative); Color,Urine Yellow; Glucose,Urine (UA) Negative (Negative); Ketones,Urine Negative (Negative); Leukocyte Esterase,Urine Negative (Negative); Nitrite,Urine Negative (Negative); Protein,Urine Trace (Negative); Specific Gravity,Urine 1.019 (1.001-1.035); Urobilinogen,Urine <2.0 mg/dL (<2.0)
[2019-07-15] MEDS: SODIUM CHLORIDE 0.9% 1,000 ML IV SCH ×2 (06:55→08:42)
[2019-07-15] MEDS: PANTOPRAZOLE 40 MG TABLET PO SCH (06:55)
[2019-07-15] MEDS: LEVOTHYROXINE 88 MCG TAB PO SCH (06:55)
[2019-07-15 08:07] VITALS: RESP 16
[2019-07-15] MEDS: FLUTICASONE 50MCG/SPRAY NASAL 16GM EA NOSTRIL SCH (08:41)
[2019-07-15] MEDS: APIXABAN 5 MG TAB PO SCH (08:42)
[2019-07-15] MEDS: METOPROLOL SUCCINATE (ER) 50 MG TAB.ER.24H PO SCH (08:42)
[2019-07-15] MEDS: POTASSIUM CHLORIDE ER 20 MEQ TAB.ER PO SCH (08:42)
[2019-07-15] MEDS: SPIRONOLACTONE 25 MG TAB PO SCH (08:42)
[2019-07-15] MEDS: DOXAZOSIN 4 MG TAB PO SCH (08:42)
[2019-07-15] MEDS: FUROSEMIDE 40 MG TAB PO SCH (08:42)
[2019-07-15] MEDS: ASCORBIC ACID 500 MG TAB PO SCH (08:42)
--- NOTE | 2019-07-15 11:04 | P.PN ---
Subjective Progress Note Date: 07/15/19 Principal diagnosis: Tracheobronchitis/shortness of breath This is a pleasant 79-year-old gentleman who sees Dr. Nguyễn in the office on regular basis with a past medical history significant for long standing persistent atrial fibrillation and the patient currently is on oral ant icoagulation, chronic shortness of breath, hypertension, and dyslipidemia, presented to the emergency room complaining of shortness of breath associated with cough for the last several days. The patient symptoms started about a week ago where he was experiencing cough productive of sputum. He stated he had no fever but he developed some chills. Initially he was seen by his primary care physician who started him on medication, unknown at this point, and the patient did not feel better and decided to come to the emergency room. He stated that the shortness of breath has been increasing and the cough was not getting better. He denies any symptoms of chest pain or chest discomfort, feeling of heart racing or fluttering, dizziness, or syncope. No lower extremities edema. Before he presented to the hospital he was tried on Levaquin without any improvement. In the ER, the EKG showed underlying atrial fibrillation. Chest x-ray showed mild congestion. The BNP is slightly elevated. Troponin is slightly elevated. Beside that an echocardiogram was performed and revealed severe cardiomyopathy was EF around 20%. I am not quite sure if that cardiomyopathy is known to the patient or something known from before there is no old echo in the system but would get an echo from the office. The patient is on maximize medical treatment for the cardiomyopathy including metoprolol, lisinopril, as well as Aldactone. The patient was seen this morning, 07/15/2019. He is feeling better in terms of shortness of breath. He is hemodynamically stable. He is euvolemic on examination as well. The echo continues to show evidence of severe cardiomyopathy with EF around 20% and he is on maximize medical treatment. Objective - Vital Signs Vital signs: Vital Signs Temp 98.4 F 07/15/19 07:59 Pulse 86 07/15/19 07:59 Resp 16 07/15/19 07:59 BP 127/82 07/15/19 07:59 Pulse Ox 95 07/15/19 07:59 Intake & Output 07/14/19 07/15/19 07/15/19 18:59 06:59 18:59 Intake Total 1034 240 Output Total 1400 700 Balance -366 -700 240 Weight 99.2 kg Intake: Oral 1034 240 Output: Urine 1400 700 Other: Voiding Method Toilet # Voids 2 0 - Constitutional General appearance: Present: no acute distress - Respiratory Respiratory: bilateral: CTA - Cardiovascular Rhythm: irregularly irregular Heart sounds: normal: S1, S2 - Labs CBC & Chem 7: 07/13/19 11:36 07/14/19 08:02 Labs: Abnormal Lab Results - Last 24 Hours (Table) 07/15/19 Range/Units 06:45 Urine Protein Trace H (Negative) Assessment and Plan Assessment: Assessment #1 shortness of breath associated with cough. Patient could have tracheobronchitis #2 the patient doesn't seems in overt congestive heart failure at this point #3 long-standing persistent atrial fibrillation on oral anticoagulation #4 severe cardiomyopathy of unknown etiology #5 multiple comorbid conditions Plan #1 continue the current medical regimen #2 from the cardiac standpoint, the patient can be discharged home
[2019-07-15 11:21] VITALS: BP 122/67; PULSE 84; TEMP 98.3
--- NOTE | 2019-07-15 17:10 | P.DS ---
Providers Date of admission: 07/13/19 13:35 Expected date of discharge: 07/15/19 Attending physician: Haim Felder Consults: 07/13/19 13:40 Consult Physician Stat Consulting Provider: Shiva Flores Consult Reason/Comments: Elevated troponin, weakness Do you want consulting provider notified?: Yes Primary care physician: Haim Renteriahven [facility] Course: 79-year-old gentleman who sees Dr. Nguyễn in the office on regular basis with a past medical history significant for long standing persistent atrial fibrillation and the patient currently is on oral anticoagulation, chronic shortness of breath, hypertension, and dyslipidemia, presented to the emergency room complaining of shortness of breath associated with cough for the last several days. The patient symptoms started about a week ago where he was experiencing cough productive of sputum. He stated he had no fever but he developed some chills. Initially he was seen by his primary care physician who started him on medication, unknown at this point, and the patient did not feel better and decided to come to the emergency room. He stated that the shortness of breath has been increasing and the cough was not getting better. He denies any symptoms of chest pain or chest discomfort, feeling of heart racing or fluttering, dizziness, or syncope. No lower extremities edema. Before he presented to the hospital he was tried on Levaquin without any improvement. In the ER, the EKG showed underlying atrial fibrillation. Chest x-ray showed mild congestion. The BNP is slightly elevated. Troponin is slightly elevated. Beside that an echocardiogram was performed and revealed severe cardiomyopathy was EF around 20%. I am not quite sure if that cardiomyopathy is known to the patient or something known from before there is no old echo in the system but would get an echo from the office. The patient is on maximize medical treatment for the cardiomyopathy including metoprolol, lisinopril, as well as Aldactone. The patient was seen this morning, 07/15/2019. He is feeling better in terms of shortness of breath. He is hemodynamically stable. He is euvolemic on examination as well. The echo continues to show evidence of severe cardiomyopathy with EF around 20% and he is on maximize medical treatment. Patient was evaluated by cardiology and was deemed stable from cardiology standpoint with no further need for any any testing or evaluation; patient's symptoms were deemed secondary to acute bronchitis; patient currently is on oral Levaquin which will be continued to complete a course of therapy Patient Condition at Discharge: Stable Plan - Discharge Summary New Discharge Prescriptions: New Spironolactone [Aldactone] 25 mg PO DAILY #30 tab Acetaminophen Tab [Tylenol] 650 mg PO Q6HR PRN tab PRN Reason: Mild Pain Or Fever > 100.5 Continue Doxazosin [Cardura] 8 mg PO DAILY Simvastatin [Zocor] 40 mg PO HS Omeprazole [PriLOSEC] 20 mg PO AC-BRKFST Ketoconazole 2% Cream [Nizoral 2%] 1 applic TOPICAL DAILY Apixaban [Eliquis] 5 mg PO BID Albuterol Nebulized [Ventolin Nebulized] 2.5 mg INHALATION RT-QID PRN PRN Reason: Shortness Of Breath Albuterol Sulfate [Ventolin HFA] 2 puff INHALATION RT-QID PRN PRN Reason: Shortness Of Breath Ergocalciferol [Vitamin D2 (DRISDOL)] 50,000 unit PO Q30D Fluticasone Nasal [place] [Flonase Nasal [place]] 1 spray EA NOSTRIL DAILY Montelukast [Singulair] 10 mg PO HS Furosemide [Lasix] 40 mg PO DAILY Levofloxacin 500 mg PO DAILY Calcium Carbonate [Calcium] 600 mg PO DAILY Multivitamins, Thera [Multivitamin (formulary)] 1 tab PO DAILY Metoprolol Succinate (ER) [Toprol XL] 50 mg PO DAILY Vitamin B-12(Unknown Dsoe) 1 tab PO DAILY Ascorbic Acid [Vitamin C] 1,000 mg PO DAILY Levothyroxine Sodium [Synthroid] 88 mcg PO DAILY Discharge Medication List Doxazosin [Cardura] 8 mg PO DAILY 02/09/14 [History] Simvastatin [Zocor] 40 mg PO HS 02/09/14 [History] Ketoconazole 2% Cream [Nizoral 2%] 1 applic TOPICAL DAILY 09/12/14 [History] Omeprazole [PriLOSEC] 20 mg PO AC-BRKFST 09/12/14 [History] Apixaban [Eliquis] 5 mg PO BID 01/16/18 [History] Albuterol Nebulized [Ventolin Nebulized] 2.5 mg INHALATION RT-QID PRN 06/24/19 [History] Albuterol Sulfate [Ventolin HFA] 2 puff INHALATION RT-QID PRN 06/24/19 [History] Ergocalciferol [Vitamin D2 (DRISDOL)] 50,000 unit PO Q30D 06/24/19 [History] Fluticasone Nasal [place] [Flonase Nasal [place]] 1 spray EA NOSTRIL DAILY 06/24/19 [History] Montelukast [Singulair] 10 mg PO HS 06/24/19 [History] Ascorbic Acid [Vitamin C] 1,000 mg PO DAILY 07/13/19 [History] Calcium Carbonate [Calcium] 600 mg PO DAILY 07/13/19 [History] Furosemide [Lasix] 40 mg PO DAILY 07/13/19 [History] Levofloxacin 500 mg PO DAILY 07/13/19 [History] Levothyroxine Sodium [Synthroid] 88 mcg PO DAILY 07/13/19 [History] Metoprolol Succinate (ER) [Toprol XL] 50 mg PO DAILY 07/13/19 [History] Multivitamins, Thera [Multivitamin (formulary)] 1 tab PO DAILY 07/13/19 [History] Vitamin B-12(Unknown Dsoe) 1 tab PO DAILY 07/13/19 [History] Acetaminophen Tab [Tylenol] 650 mg PO Q6HR PRN tab 07/15/19 [Rx] Spironolactone [Aldactone] 25 mg PO DAILY #30 tab 07/15/19 [Rx] Follow up Appointment(s)/Referral(s): Haim Felder MD [Primary Care Provider] - 07/20/19 8:40 am (Please keep previous appointment with Dr. Felder. ) Juan Nguyễn MD [STAFF PHYSICIAN] - 08/03/19 4:15 pm Patient Instructions/Handouts: Upper Respiratory Infection (DC) Activity/Diet/Wound Care/Special Instructions: CHF 1. Weigh yourself every morning after you urinate. If you gain 2-3 pounds ov ernight or 5 pounds in one week, call your primary physician for guidance on your medications. Keep a log of your weights. 2. Avoid salt, or foods with hidden salt. Extra salt makes your heart work malhotra rder and traps the fluid in your body for longer. 3. Take all of your medications as directed, especially your water pills. NEVER skip a dose. 4. Elevate your legs when you are not up moving around to help with circulation and prevent swelling. 5. Call your physician if you notice any extra swelling in your legs, ankles, feet or abdomen, if you have a new dry cough, if your shortness of breath wor sens with activity or at rest, or if you feel more fatigued. Discharge Disposition: HOME SELF-CARE
--- NOTE | 2019-07-22 17:20 | DS ---
DISCHARGE SUMMARY CHIEF COMPLAINT: Shortness of breath. HISTORY OF PRESENT ILLNESS AND PHYSICAL EXAMINATION: Details of this man's history and physical can be found in the initial workup. LABORATORY STUDIES: While he was in the hospital he had laboratory studies, details of which can be found in the laboratory section of his chart. COURSE IN THE HOSPITAL: After admission he was placed on bedrest, started on intravenous fluids, and echocardiogram revealed that he did indeed have congestive heart failure. Diuresis was started and he was doing well. It was felt that he could be discharged on July 15. He will go home on light activity about the house, a salt-restricted diet, and he will follow up in the office in several days. FINAL DIAGNOSES: 1. Acute congestive heart failure. 2. Chronic congestive heart failure. 3. Hypertension. OPERATIONS: None. CONSULTATION: Cardiology. He is improved. MMDUNIAL / KWAN: [id number] /
== END 2019-07-15 17:28 | disposition home or self-care (01) ==
LOC: EC 10:56 → 3SCARD 13:35
PROVIDERS: ADMIT Family Medicine; ATTEND Family Medicine
DX: I11.0 Hypertensive heart disease with heart failure (principal); I50.9 Heart failure, unspecified; E78.5 Hyperlipidemia, unspecified; J20.9 Acute bronchitis, unspecified; I25.10 Atherosclerotic heart disease of native coronary artery without angina pectoris; K21.9 Gastro-esophageal reflux disease without esophagitis; I25.2 Old myocardial infarction; N40.0 Benign prostatic hyperplasia without lower urinary tract symptoms; R19.7 Diarrhea, unspecified; I42.9 Cardiomyopathy, unspecified; J06.9 Acute upper respiratory infection, unspecified; E07.9 Disorder of thyroid, unspecified; Z79.01 Long term (current) use of anticoagulants; I48.11 Longstanding persistent atrial fibrillation; Z87.891 Personal history of nicotine dependence; Z85.828 Personal history of other malignant neoplasm of skin; Z79.899 Other long term (current) drug therapy; Z79.890 Hormone replacement therapy; Z88.8 Allergy status to other drugs, medicaments and biological substances; Z91.011 Allergy to milk products; Z96.651 Presence of right artificial knee joint; Z88.5 Allergy status to narcotic agent; Z91.048 Other nonmedicinal substance allergy status; Z80.7 Family history of other malignant neoplasms of lymphoid, hematopoietic and related tissues; Z80.41 Family history of malignant neoplasm of ovary
CPT/HCPCS: 96374; 99285; 36415; 94640 ×2; 93005; 84439; 83880; 80053; 80048; 84484; 85025; 85610; 85730; 81003; 81001; 87086; 71046; G0378 ×3; C8929; J1940; Q9950; 93306

== ENCOUNTER 2022-06-08 21:03 | Observation (INO) | payer MEDICARE ==
--- NOTE | 2022-06-08 22:06 | XR ---
EXAMINATION TYPE: XR chest 2V DATE OF EXAM: 06/08/2022 COMPARISON: 07/13/2019 HISTORY: Short of breath TECHNIQUE: FINDINGS: Heart is normal. Lungs are clear of infiltrate. No heart failure. There are no hilar masses . Bony thorax is intact. IMPRESSION: No active cardiopulmonary disease. There is clearing of the basilar pulmonary infiltrates compared to old exam.
[2022-06-08] MEDS ORDERED: SODIUM CHLORIDE 0.9% 1,000 ML IV STA ×2 (22:45)
[2022-06-08] MEDS ORDERED: DEXAMETHASONE SOD PHOSPHATE 10 MG/ML 1 ML VIAL IVP STA (22:45)
[2022-06-08] MEDS ORDERED: ACETAMINOPHEN TAB 500 MG TAB PO STA (22:45)
[2022-06-08] MEDS ORDERED: KETOROLAC 15 MG/ML 1 ML VIAL IVP STA (22:45)
[2022-06-08] MEDS ORDERED: ONDANSETRON 4 MG/2 ML VIAL IVP STA (22:46)
--- NOTE | 2022-06-08 22:47 | ED ---
Recheck HPI - General Chief Complaint: Upper Respiratory Infection Stated Complaint: Covid + Time Seen by Provider: 06/08/22 22:45 Source: patient, RN notes reviewed, old records reviewed Mode of arrival: ambulatory Limitations: no limitations - History of Present Illness Initial Comments: This is an 82-year-old male to the emergency department for evaluation patient presents today for evaluation of not feeling well fevers nausea weakness. Patient does have positive at home test for coronavirus with a positive exposure being his son who is with him. Patient has no travel history otherwise. Patient has not had coronavirus up to this point patient is short of breath with diarrhea and a runny nose MD Complaint: abnormal lab (Positive for coronavirus) -: hour(s) Returns Today for: Called Because of Abnormal Lab/Test, persistent/worsening pain related to initial visit Symptoms Since Prior Visit: worsening pain, fever Context: planned re-check Associated Symptoms: fever, chills, shortness of breath, nausea, abdominal pain Treatments Prior to Arrival: other (0) - Related Data Home Medications Medication Instructions Recorded Confirmed Doxazosin [Cardura] 8 mg PO DAILY 02/09/14 07/13/19 Simvastatin [Zocor] 40 mg PO HS 02/09/14 07/13/19 Ketoconazole 2% Cream [Nizoral 2%] 1 applic TOPICAL DAILY 09/12/14 07/13/19 Omeprazole [PriLOSEC] 20 mg PO AC-BRKFST 09/12/14 07/13/19 Apixaban [Eliquis] 5 mg PO BID 01/16/18 07/13/19 Albuterol Nebulized [Ventolin 2.5 mg INHALATION RT-QID PRN 06/24/19 07/13/19 Nebulized] Albuterol Sulfate [Ventolin HFA] 2 puff INHALATION RT-QID PRN 06/24/19 07/13/19 Ergocalciferol [Vitamin D2 50,000 unit PO Q30D 06/24/19 07/13/19 (DRISDOL)] Fluticasone Nasal [place] [Flonase 1 spray EA NOSTRIL DAILY 06/24/19 07/13/19 Nasal [place]] Montelukast [Singulair] 10 mg PO HS 06/24/19 07/13/19 Ascorbic Acid [Vitamin C] 1,000 mg PO DAILY 07/13/19 07/13/19 Calcium Carbonate [Calcium] 600 mg PO DAILY 07/13/19 07/13/19 Furosemide [Lasix] 40 mg PO DAILY 07/13/19 07/13/19 Levothyroxine Sodium [Synthroid] 88 mcg PO DAILY 07/13/19 07/13/19 Metoprolol Succinate (ER) [Toprol 50 mg PO DAILY 07/13/19 07/13/19 XL] Multivitamins, Thera [Multivitamin 1 tab PO DAILY 07/13/19 07/13/19 (formulary)] Vitamin B-12(Unknown Dsoe) 1 tab PO DAILY 07/13/19 07/13/19 levoFLOXacin 500 mg PO DAILY 07/13/19 07/13/19 Previous Rx's Medication Instructions Recorded Acetaminophen Tab [Tylenol] 650 mg PO Q6HR PRN tab 07/15/19 Spironolactone [Aldactone] 25 mg PO DAILY #30 tab 07/15/19 Allergies Allergy/AdvReac Type Severity Reaction Status Date / Time Milk Containing Products Allergy Diarrhea Verified 07/13/19 15:00 silicone Allergy Rash/Hives Verified 07/13/19 15:00 hydromorphone HCl AdvReac Nausea & Verified 07/13/19 15:00 [From Dilaudid] Vomiting powder from latex gloves Allergy Rash/Hives Uncoded 07/13/19 15:00 Review of Systems ROS Statement: Those systems with pertinent positive or pertinent negative responses have been documented in the HPI. ROS Other: All systems not noted in ROS Statement are negative. Past Medical History Past Medical History: Atrial Fibrillation, Coronary Artery Disease (CAD), GERD/Reflux, Hyperlipidemia, Hypertension, Myocardial Infarction (HI), Prostate Disorder, Thyroid Disorder Additional Past Medical History / Comment(s): Enlarged Prostate, States HI 30 years ago. Last Myocardial Infarction Date:: 1987 History of Any Multi-Drug Resistant Organisms: None Reported Past Surgical History: Heart Catheterization, Hernia Repair, Orthopedic Surgery Additional Past Surgical History / Comment(s): skin cancer, L eye cataract, R knee replacement Past Anesthesia/Blood Transfusion Reactions: No Reported Reaction Past Psychological History: No Psychological Hx Reported Smoking Status: Never smoker Past Alcohol Use History: None Reported Past Drug Use History: None Reported - Past Family History Mother Family Medical History: No Reported History Sister(s) Family Medical History: Cancer Additional Family Medical History / Comment(s): Ovarian Brother(s) Family Medical History: Cancer Additional Family Medical History / Comment(s): Non-Hodgkins Lymphoma General Exam Limitations: no limitations General appearance: alert, in no apparent distress Head exam: Present: atraumatic, normocephalic, normal inspection Eye exam: Present: normal appearance, PERRL, EOMI. Absent: scleral icterus, conjunctival injection, periorbital swelling ENT exam: Present: normal exam, mucous membranes dry Neck exam: Present: normal inspection. Absent: tenderness, meningismus, lymphadenopathy Respiratory exam: Present: normal lung sounds bilaterally. Absent: respiratory distress, wheezes, rales, rhonchi, stridor Cardiovascular Exam: Present: regular rate, normal rhythm, normal heart sounds. Absent: systolic murmur, diastolic murmur, rubs, gallop, clicks GI/Abdominal exam: Present: soft, normal bowel sounds. Absent: distended, tenderness, guarding, rebound, rigid Extremities exam: Present: normal inspection, full ROM, normal capillary refill. Absent: tenderness, pedal edema, joint swelling, calf tenderness Back exam: Present: normal inspection Neurological exam: Present: alert, oriented X3, CN II-XII intact Psychiatric exam: Present: normal affect, normal mood Skin exam: Present: warm, dry, intact, normal color. Absent: rash Course Vital Signs 06/08/22 06/08/22 21:36 23:30 Temperature 98 F 103.0 F H Pulse Rate 84 74 Respiratory 20 18 Rate Blood Pressure 117/65 122/70 O2 Sat by Pulse 97 96 Oximetry - Reevaluation(s) Reevaluation #1: 06/08/22 22:59 Medical record is reviewed Reevaluation #2: 06/09/22 00:23 Patient has improvement in symptoms here in the ER resting Reevaluation #3: 06/09/22 00:23 Patient informed of results and questions answered - Consultations Consultation #1: Spoke with sound who does agree to admit this patient Medical Decision Making - Medical Decision Making 82 male to the emergency department with positive coronavirus and fever. Patient feels better with symptomatic treatment here in the ER will be admitted for observation and hydration, fever control - Lab Data Result diagrams: 06/08/22 22:42 06/08/22 22:42 Lab Results 06/08/22 06/08/22 06/08/22 Range/Units 21:43 22:42 22:42 WBC 11.0 H (3.8-10.6) k/uL RBC 4.49 (4.30-5.90) m/uL Hgb 14.0 (13.0-17.5) gm/dL Hct 40.4 (39.0-53.0) % MCV 89.8 (80.0-100.0) fL MCH 31.2 (25.0-35.0) pg MCHC 34.7 (31.0-37.0) g/dL RDW 11.7 (11.5-15.5) % Plt Count 216 (150-450) k/uL MPV 8.0 Neutrophils % 85 % Lymphocytes % 5 % Monocytes % 6 % Eosinophils % 1 % Basophils % 0 % Neutrophils # 9.4 H (1.3-7.7) k/uL Lymphocytes # 0.6 L (1.0-4.8) k/uL Monocytes # 0.7 (0-1.0) k/uL Eosinophils # 0.1 (0-0.7) k/uL Basophils # 0.0 (0-0.2) k/uL Sodium 135 L (137-145) mmol/L Potassium 4.4 (3.5-5.1) mmol/L Chloride 98 (98-107) mmol/L Carbon Dioxide 22 (22-30) mmol/L Anion Gap 15 mmol/L BUN 32 H (9-20) mg/dL Creatinine 1.87 H (0.66-1.25) mg/dL Est GFR (CKD-EPI)AfAm 37 (>60 ml/min/1.73 sqM) Est GFR (CKD-EPI)NonAf 32 (>60 ml/min/1.73 sqM) Glucose 153 H (74-99) mg/dL Plasma Lactic Acid Jesús (0.7-2.0) mmol/L Calcium 9.3 (8.4-10.2) mg/dL Magnesium 1.5 L (1.6-2.3) mg/dL Total Bilirubin 0.9 (0.2-1.3) mg/dL AST 30 (17-59) U/L ALT 23 (4-49) U/L Alkaline Phosphatase 80 (38-126) U/L Lactate Dehydrogenase 520 (313-618) U/L C-Reactive Protein 6.1 H (<1.0) mg/dL Total Protein 6.7 (6.3-8.2) g/dL Albumin 4.1 (3.5-5.0) g/dL Coronavirus (PCR) Detected A (Not Detectd) 06/08/22 Range/Units 23:39 WBC (3.8-10.6) k/uL RBC (4.30-5.90) m/uL Hgb (13.0-17.5) gm/dL Hct (39.0-53.0) % MCV (80.0-100.0) fL MCH (25.0-35.0) pg MCHC (31.0-37.0) g/dL RDW (11.5-15.5) % Plt Count (150-450) k/uL MPV Neutrophils % % Lymphocytes % % Monocytes % % Eosinophils % % Basophils % % Neutrophils # (1.3-7.7) k/uL Lymphocytes # (1.0-4.8) k/uL Monocytes # (0-1.0) k/uL Eosinophils # (0-0.7) k/uL Basophils # (0-0.2) k/uL Sodium (137-145) mmol/L Potassium (3.5-5.1) mmol/L Chloride (98-107) mmol/L Carbon Dioxide (22-30) mmol/L Anion Gap mmol/L BUN (9-20) mg/dL Creatinine (0.66-1.25) mg/dL Est GFR (CKD-EPI)AfAm (>60 ml/min/1.73 sqM) Est GFR (CKD-EPI)NonAf (>60 ml/min/1.73 sqM) Glucose (74-99) mg/dL Plasma Lactic Acid Jesús 1.1 (0.7-2.0) mmol/L Calcium (8.4-10.2) mg/dL Magnesium (1.6-2.3) mg/dL Total Bilirubin (0.2-1.3) mg/dL AST (17-59) U/L ALT (4-49) U/L Alkaline Phosphatase (38-126) U/L Lactate Dehydrogenase (313-618) U/L C-Reactive Protein (<1.0) mg/dL Total Protein (6.3-8.2) g/dL Albumin (3.5-5.0) g/dL Coronavirus (PCR) (Not Detectd) - EKG Data -: EKG Interpreted by Me (EKG is sinus rhythm 81 MS 202 QRS 173 QTc 457 patient does have a left bund) - Radiology Data Radiology results: report reviewed (Chest x-rays negative for acute disease), image reviewed Disposition Clinical Impression: Weakness, Coronavirus infection, Fever Disposition: ADMITTED IP TO THIS HOSP Condition: Fair Is patient prescribed a controlled substance at d/c from ED?: No Referrals: None,Stated [Primary Care Provider] - 1-2 days Time of Disposition: 00:20
[2022-06-08 23:05] LABS: Basophils % (A) 0 %; Eosinophils # (A) 0.1 k/uL (0-0.7); Eosinophils % (A) 1 %; HCT 40.4 % (39.0-53.0); Lymphocytes # (A) 0.6 k/uL (1.0-4.8); Lymphocytes % (A) 5 %; MCH 31.2 pg (25.0-35.0); MCHC 34.7 g/dL (31.0-37.0); MCV 89.8 fL (80.0-100.0); Monocytes # (A) 0.7 k/uL (0-1.0); Monocytes % (A) 6 %; Neutrophils # (A) 9.4 k/uL (1.3-7.7); Neutrophils % (A) 85 %; Platelet Count 216 k/uL (150-450); RBC 4.49 m/uL (4.30-5.90); RDW 11.7 % (11.5-15.5)
[2022-06-08 23:19] LABS: Albumin 4.1 g/dL (3.5-5.0); C Reactive Protein 6.1 mg/dL (<1.0); Calcium 9.3 mg/dL (8.4-10.2); Magnesium 1.5 mg/dL (1.6-2.3); Potassium 4.4 mmol/L (3.5-5.1); Total Bilirubin 0.9 mg/dL (0.2-1.3); Total Protein 6.7 g/dL (6.3-8.2)
[2022-06-09] MEDS ORDERED: MAGNESIUM OXIDE 400 MG TAB PO STA (00:07)
[2022-06-09] MEDS ORDERED: MAGNESIUM SULFATE-D5W PMX 1 GM in DEXTROSE/WATER 1 100ML.BAG IVPB ONE (00:07)
[2022-06-09] MEDS ORDERED: MORPHINE SULFATE 4 MG/ML SYRINGE IV PRN (00:21)
[2022-06-09] MEDS ORDERED: NALOXONE 0.4 MG/ML 1 ML VIAL IV PRN (00:21)
[2022-06-09] MEDS ORDERED: ONDANSETRON 4 MG/2 ML VIAL IVP PRN (00:21)
[2022-06-09] MEDS ORDERED: ACETAMINOPHEN TAB 325 MG TAB PO PRN (00:24)
[2022-06-09] MEDS ORDERED: IBUPROFEN 400 MG TAB PO PRN (00:24)
[2022-06-09] MEDS ORDERED: SODIUM CHLORIDE 0.9% 1,000 ML IV SCH (00:30)
--- NOTE | 2022-06-09 03:02 | P.HPIM ---
History of Present Illness H&P Date: 06/09/22 The patient is an 82-year-old male with a PMH of coronary artery disease, chronic kidney disease, hypothyroidism, A. fib on Eliquis, hypertension, hyperlipidemia who presents to the emergency room with complaints of fever, chills, cough, and shortness of breath. The patient reports that his symptoms started this past Thursday and gradually worsened. He reports testing positive for home called with test earlier today. Denies experiencing chest discomfort. Chest x-ray in the emergency room was unremarkable. The patient have SpO2 of 97% on room air upon presentation with a T-max of 103.0. Laboratory evaluation was remarkable for leukocytosis of 11.0, BUN 32, creatinine 1.87, lactic acid 1.1 with magnesium 1.5 and coronavirus PCR positive. Review of systems: Pertinent positives and negatives as discussed in HPI, a complete review of systems was performed and all other systems are negative. Physical examination: General: non toxic, no distress, appears at stated age, obese Derm: no unusual rashes/lesions, warm Head: atraumatic, normocephalic, symmetric Eyes: EOMI, no lid lag, anicteric sclera, pupils equal round reactive to light ENT: Nose and ears atraumatic Neck: No cervical lymphadenopathy, trachea midline, supple Mouth: no lip lesion, mucus membranes moist Cardiovascular: S1S2 reg, no murmur, positive dorsalis pedis pulse bilateral, no edema Lungs: CTA bilateral, no rhonchi, no rales, no accessory muscle use Abdominal: soft, nontender to palpation, no guarding Ext: muscle strength 5 out of 5 in all 4 extremities grossly, no gross muscle atrophy, no contractures, Neuro: CN II-XI grossly intact, no gross focal neuro deficits Psych: Alert, oriented, appropriate affect Assessment/plan COVID-19 infection -Zinc, vitamin C, vitamin D -Supplemental oxygen -Not requiring supplemental oxygen at this time Hypomagnesemia -Replace and monitor Chronic conditions: A. fib, coronary artery disease, chronic kidney disease, hypothyroidism, hypertension, hyperkalemia -Continue with home medications once confirmed DVT prophylaxis -Eliquis The patient is admitted with an anticipated less than 2 midnight stay for evaluation of COVID CODE STATUS: Full Code Discussed with: Patient Anticipated discharge date: in am Anticipated discharge place: Home Past Medical History Past Medical History: Atrial Fibrillation, Coronary Artery Disease (CAD), GERD/Reflux, Hyperlipidemia, Hypertension, Myocardial Infarction ([place]), Prostate Disorder, Thyroid Disorder Additional Past Medical History / Comment(s): Enlarged Prostate, States [place] 30 years ago. Last Myocardial Infarction Date:: 1987 History of Any Multi-Drug Resistant Organisms: None Reported Past Surgical History: Heart Catheterization, Hernia Repair, Orthopedic Surgery Additional Past Surgical History / Comment(s): skin cancer, L eye cataract, R knee replacement Past Anesthesia/Blood Transfusion Reactions: No Reported Reaction Past Psychological History: No Psychological Hx Reported Smoking Status: Never smoker Past Alcohol Use History: None Reported Past Drug Use History: None Reported - Past Family History Mother Family Medical History: No Reported History Sister(s) Family Medical History: Cancer Additional Family Medical History / Comment(s): Ovarian Brother(s) Family Medical History: Cancer Additional Family Medical History / Comment(s): Non-Hodgkins Lymphoma Medications and Allergies Home Medications Medication Instructions Recorded Confirmed Type Doxazosin [Cardura] 8 mg PO DAILY 02/09/14 07/13/19 History Simvastatin [Zocor] 40 mg PO HS 02/09/14 07/13/19 History Ketoconazole 2% Cream [Nizoral 2%] 1 applic TOPICAL DAILY 09/12/14 07/13/19 History Omeprazole [PriLOSEC] 20 mg PO [id number] 09/12/14 07/13/19 History Apixaban [Eliquis] 5 mg PO BID 01/16/18 07/13/19 History Albuterol Nebulized [Ventolin 2.5 mg INHALATION RT-QID PRN 06/24/19 07/13/19 History Nebulized] Albuterol Sulfate [Ventolin HFA] 2 puff INHALATION RT-QID PRN 06/24/19 07/13/19 History Ergocalciferol [Vitamin D2 50,000 unit PO Q30D 06/24/19 07/13/19 History (DRISDOL)] Fluticasone Nasal [place] [Flonase 1 spray EA NOSTRIL DAILY 06/24/19 07/13/19 History Nasal [place]] Montelukast [Singulair] 10 mg PO HS 06/24/19 07/13/19 History Ascorbic Acid [Vitamin C] 1,000 mg PO DAILY 07/13/19 07/13/19 History Calcium Carbonate [Calcium] 600 mg PO DAILY 07/13/19 07/13/19 History Furosemide [Lasix] 40 mg PO DAILY 07/13/19 07/13/19 History Levothyroxine Sodium [Synthroid] 88 mcg PO DAILY 07/13/19 07/13/19 History Metoprolol Succinate (ER) [Toprol 50 mg PO DAILY 07/13/19 07/13/19 History XL] Multivitamins, Thera [Multivitamin 1 tab PO DAILY 07/13/19 07/13/19 History (formulary)] Vitamin B-12(Unknown Dsoe) 1 tab PO DAILY 07/13/19 07/13/19 History levoFLOXacin 500 mg PO DAILY 07/13/19 07/13/19 History Acetaminophen Tab [Tylenol] 650 mg PO Q6HR PRN tab 07/15/19 Rx Spironolactone [Aldactone] 25 mg PO DAILY #30 tab 07/15/19 Rx Allergies Allergy/AdvReac Type Severity Reaction Status Date / Time Milk Containing Products Allergy Diarrhea Verified 07/13/19 15:00 silicone Allergy Rash/Hives Verified 07/13/19 15:00 hydromorphone HCl AdvReac Nausea & Verified 07/13/19 15:00 [From Dilaudid] Vomiting powder from latex gloves Allergy Rash/Hives Uncoded 07/13/19 15:00 Physical Exam Vitals: Vital Signs Temp Pulse Resp BP Pulse Ox 06/09/22 00:54 100.7 F H 86 18 103/55 95 06/08/22 23:30 103.0 F H 74 18 122/70 96 06/08/22 21:36 98 F 84 20 117/65 97 Intake and Output 06/08/22 06/08/22 06/09/22 14:59 22:59 06:59 Other: Weight 95.708 kg Results CBC & Chem 7: 06/08/22 22:42 06/08/22 22:42 Labs: Abnormal Lab Results - Last 24 Hours (Table) 06/08/22 06/08/22 06/08/22 Range/Units 21:43 22:42 22:42 WBC 11.0 H (3.8-10.6) k/uL Neutrophils # 9.4 H (1.3-7.7) k/uL Lymphocytes # 0.6 L (1.0-4.8) k/uL Sodium 135 L (137-145) mmol/L BUN 32 H (9-20) mg/dL Creatinine 1.87 H (0.66-1.25) mg/dL Glucose 153 H (74-99) mg/dL Magnesium 1.5 L (1.6-2.3) mg/dL C-Reactive Protein 6.1 H (<1.0) mg/dL Coronavirus (PCR) Detected A (Not Detectd)
[2022-06-09] MEDS: MAGNESIUM SULFATE-D5W PMX 1 GM in DEXTROSE/WATER 1 100ML.BAG IVPB SCH (05:14)
[2022-06-09] MEDS ORDERED: HEPARIN SODIUM,PORCINE/PF 5,000 UNIT/0.5 ML SYRINGE SQ SCH (08:00)
[2022-06-09] MEDS ORDERED: FLUTICASONE 50MCG/SPRAY NASAL 16GM EA NOSTRIL PRN (11:48)
--- NOTE | 2022-06-09 11:51 | P.PN ---
Subjective Progress Note Date: 06/09/22 Hospital course: Patient is a very pleasant 82-year-old male with a past medical history of coronary artery disease, hypertension, hyperlipidemia, atrial fibrillation on anticoagulation with Eliquis, and chronic kidney disease. He presented to the emergency department with a chief complaint of fever, chills, cough, and shortness of breath. Patient reported his symptoms began approximately 5 days ago when of progressively worsened. Patient reports significant fatigue, weakness, and overall feeling ill. Patient underwent full evaluation in the emergency department. CBC was positive for leukocytosis with WBC count of 11.0 and CMP was consistent with stage III CKD with BUN 32, creatinine 1.87, and GFR 32. Patient was found to have hypomagnesemia with magnesium of 1.5. Covid PCR was positive. Chest x-ray negative for acute cardiopulmonary process revealing clearing of the previously noted basilar pulmonary infiltrates compared to previous examination on 07/13/19. EKG showing normal sinus rhythm at 81 bpm with a left bundle branch block, left bundle branch block was present on previous EKG obtained 07/13/19. Patient admitted under our services at this time. Physical exam: Patient seen and fully evaluated at bedside this morning. Patient reports that he does feel slightly better than he did upon arrival but continues to have generalized weakness, fatigue, and a sore throat. He denies having any chest pain, palpitations, or shortness of breath at this time. Temperature high over the past 24 hours has been 103F. We will continue with symptomatic care and treatment. Continue with vitamin C, vitamin D, and zinc along with DVT prophylaxis with Eliquis. Vital signs reviewed and stable. General: Nontoxic, no distress and appears stated age. Derm: Skin warm and dry, normal coloration for ethnicity. Head: Atraumatic, normocephalic and symmetric. Eyes: EOMs intact, no lid lag, and anicteric sclera Mouth: no lip lesions, mucus membranes moist Cardiovascular: regular rate and rhythm with normal S1S2, no murmur, positive posterior tibial pulses bilaterally, and cap refill < 2 seconds. Lungs: Respirations even, regular, and unlabored on room air. Lungs CTA bilaterally, no rhonchi, no rales, no wheezing, and no accessory muscle usage. Abdominal: soft, nontender to palpation, no guarding, no appreciable organomegaly Ext: ROM intact. No gross muscle atrophy, no edema, no contractures Neuro: Speech clear, face symmetrical and CN II-XII grossly intact with no noted focal neuro deficits Psych: Alert and oriented to person, place, time, and situation. Appropriate and pleasant affect. Assessment and Plan of Care: COVID 19 infection -Oxygenation to be administered as needed to maintain SPO2 equal to or greater than 90% -Telemetry monitoring. -Encourage Incentive Spirometry 10-15x hourly while awake -Continue vitamin C, Vitamin D, and Zinc. -DVT prophylaxis with Eliquis. -Strict Droplet plus Contact precautions -Symptomatic care and pain management. Hypomagnesemia -Replaced. Continue to monitor with repeat a.m. labs and replace abnormal electrolyte abnormalities as needed. Atrial fibrillation -Continue anticoagulation with Eliquis. Hyperlipidemia -Continue daily medication regimen with atorvastatin. Hypertension -Continue daily medication regimen with metoprolol. Hypothyroidism -Continue daily medication regimen with levothyroxine. CODE STATUS: Full code DVT prophylaxis: Eliquis Discussed with: Patient and RN Anticipated discharge date: 1-[address]: Home A total of 35 minutes was spent on the care of this complex patient more than 50% of the time was spent in counseling and care coordination. .I reviewed the documentation as provided by the LEELEE above, who is the original author of this note. I agree with the documented assessment and plan, with the following changes: none Objective - Vital Signs Vital signs: Vital Signs Temp 100.7 F H 06/09/22 00:54 Pulse 65 06/09/22 08:33 Resp 18 06/09/22 08:33 BP 114/69 06/09/22 08:33 Pulse Ox 97 06/09/22 08:33 FiO2 Intake & Output 06/08/22 06/09/22 06/09/22 18:59 06:59 18:59 Weight 95.708 kg - Labs CBC & Chem 7: 06/08/22 22:42 06/08/22 22:42 Labs: Abnormal Lab Results - Last 24 Hours (Table) 06/08/22 06/08/22 06/08/22 Range/Units 21:43 22:42 22:42 WBC 11.0 H (3.8-10.6) k/uL Neutrophils # 9.4 H (1.3-7.7) k/uL Lymphocytes # 0.6 L (1.0-4.8) k/uL Sodium 135 L (137-145) mmol/L BUN 32 H (9-20) mg/dL Creatinine 1.87 H (0.66-1.25) mg/dL Glucose 153 H (74-99) mg/dL Magnesium 1.5 L (1.6-2.3) mg/dL C-Reactive Protein 6.1 H (<1.0) mg/dL Coronavirus (PCR) Detected A (Not Detectd)
[2022-06-09] MEDS: LEVOTHYROXINE 88 MCG TAB PO SCH (12:34)
[2022-06-09] MEDS: PANTOPRAZOLE 40 MG TABLET PO SCH (12:34)
[2022-06-09] MEDS: APIXABAN 5 MG TAB PO SCH ×2 (12:34→20:23)
[2022-06-09] MEDS: DOXAZOSIN 2 MG TAB PO SCH (12:34)
[2022-06-09] MEDS ORDERED: BENZOCAINE/MENTHOL LOZENG 1 EACH LOZENGE MUCOUS MEM PRN (15:25)
[2022-06-09] MEDS: busPIRone HCl 10 MG TAB PO SCH ×2 (16:19→20:23)
[2022-06-09 16:43] LABS: Appearance,Urine Clear (Clear); Bilirubin,Urine Negative (Negative); Blood,Urine Moderate (Negative); Color,Urine Yellow; Glucose,Urine (UA) Trace (Negative); Hyaline Casts,Urine 1 /lpf (0-2); Ketones,Urine Negative (Negative); Leukocyte Esterase,Urine Negative (Negative); Mucus,Urine Rare /hpf; Nitrite,Urine Negative (Negative); PH, Urine 5.5 (5.0-8.0); Protein,Urine Trace (Negative); RBC,Urine 50 /hpf (0-5); Specific Gravity,Urine 1.024 (1.001-1.035); Uric Acid Crystals,Urine Rare /hpf; Urobilinogen,Urine <2.0 mg/dL (<2.0); WBC,Urine 1 /hpf (0-5)
[2022-06-09] MEDS: METOPROLOL SUCCINATE (ER) 50 MG TAB.ER.24H PO SCH (20:24)
[2022-06-09] MEDS ORDERED: ATORVASTATIN 20 MG TAB PO SCH (21:00)
[2022-06-09] MEDS ORDERED: traZODone HCL 50 MG TAB PO SCH (21:00)
[2022-06-09] MEDS ORDERED: MONTELUKAST 10 MG TAB PO SCH (21:00)
[2022-06-10] MEDS: LEVOTHYROXINE 88 MCG TAB PO SCH (05:12)
--- NOTE | 2022-06-10 07:01 | P.CONS ---
History of Present Illness - Reason for Consult Consult date: 06/09/22 - History of Present Illness Patient is a 82-year-old male with a past medical history significant for hypertension hyperlipidemia coronary artery disease hypothyroidism atrial fibrillation on Eliquis presenting to the ER last night for evaluation of fever chills cough and shortness of breath the patient symptoms started on Thursday and that is 4 days prior to presentation to the hospital patient cough has been mild to moderate intensity with occasional sputum production however it is not clear about the color has been complaining of shortness of breath on minimal exertion patient also complaining of generalized weakness no energy patient did tested positive on home COVID test and subsequently presented to the hospital for further evaluation on arrival to the ER patient did have a fever of 103 F patient however blood was not hypoxic with O2 sats of 95 to 97% on room air and did not need any supplemental oxygen patient did have a white count of 11,000 with a left shift BUN/creatinine has been slightly elevated liver enzymes are normal patient did have a positive COVID test chest x-ray no active c ardiopulmonary disease the patient was admitted to hospital infectious disease was consulted for possible need for remdesivir Past Medical History Past Medical History: Atrial Fibrillation, Coronary Artery Disease (CAD), GERD/Reflux, Hyperlipidemia, Hypertension, Myocardial Infarction ([place]), Prostate Disorder, Thyroid Disorder Additional Past Medical History / Comment(s): Enlarged Prostate, States [place] 30 years ago. Last Myocardial Infarction Date:: 1987 History of Any Multi-Drug Resistant Organisms: None Reported Past Surgical History: Heart Catheterization, Hernia Repair, Orthopedic Surgery Additional Past Surgical History / Comment(s): skin cancer, L eye cataract, R knee replacement Past Anesthesia/Blood Transfusion Reactions: No Reported Reaction Past Psychological History: No Psychological Hx Reported Smoking Status: Never smoker Past Alcohol Use History: None Reported Past Drug Use History: None Reported - Past Family History Mother Family Medical History: No Reported History Sister(s) Family Medical History: Cancer Additional Family Medical History / Comment(s): Ovarian Brother(s) Family Medical History: Cancer Additional Family Medical History / Comment(s): Non-Hodgkins Lymphoma Medications and Allergies Home Medications Medication Instructions Recorded Confirmed Type Simvastatin [Zocor] 40 mg PO HS 02/09/14 06/09/22 History Omeprazole [PriLOSEC] 20 mg PO BID 09/12/14 06/09/22 History Apixaban [Eliquis] 5 mg PO BID 01/16/18 06/09/22 History Fluticasone Nasal [place] [Flonase 1 spray EA NOSTRIL DAILY PRN 06/24/19 06/09/22 History Nasal [place]] Montelukast [Singulair] 10 mg PO HS 06/24/19 06/09/22 History Furosemide [Lasix] 40 mg PO DAILY 07/13/19 06/09/22 History Levothyroxine Sodium [Synthroid] 88 mcg PO DAILY 07/13/19 06/09/22 History Metoprolol Succinate (ER) [Toprol 50 mg PO BID 07/13/19 06/09/22 History XL] Spironolactone [Aldactone] 25 mg PO DAILY #30 tab 07/15/19 06/09/22 Rx Doxazosin [Cardura] 2 mg PO DAILY 06/09/22 06/09/22 History Potassium Chloride [Klor-Con 10 ER] 10 meq PO DAILY 06/09/22 06/09/22 History busPIRone HCL 10 mg PO TID 06/09/22 06/09/22 History traZODone HCL [Desyrel] 100 mg PO HS 06/09/22 06/09/22 History Allergies Allergy/AdvReac Type Severity Reaction Status Date / Time silicone Allergy Rash/Hives Verified 06/09/22 08:35 hydromorphone HCl AdvReac Nausea & Verified 06/09/22 08:35 [From Dilaudid] Vomiting Milk Containing Products AdvReac Diarrhea Verified 06/09/22 08:35 powder from latex gloves Allergy Rash/Hives Uncoded 06/09/22 08:35 Physical Exam Vitals: Vital Signs Temp Pulse Resp BP Pulse Ox 06/09/22 09:04 18 97 06/09/22 08:33 65 18 114/69 97 06/09/22 00:54 100.7 F H 86 18 103/55 95 06/08/22 23:30 103.0 F H 74 18 122/70 96 06/08/22 21:36 98 F 84 20 117/65 97 Intake and Output 06/08/22 06/09/22 06/09/22 22:59 06:59 14:59 Other: Weight 95.708 kg Results CBC & Chem 7: 06/08/22 22:42 06/08/22 22:42 Labs: Abnormal Lab Results - Last 24 Hours (Table) 06/08/22 06/08/22 06/08/22 Range/Units 21:43 22:30 22:42 WBC 11.0 H (3.8-10.6) k/uL Neutrophils # 9.4 H (1.3-7.7) k/uL Lymphocytes # 0.6 L (1.0-4.8) k/uL Sodium (137-145) mmol/L BUN (9-20) mg/dL Creatinine (0.66-1.25) mg/dL Glucose (74-99) mg/dL Magnesium (1.6-2.3) mg/dL C-Reactive Protein (<1.0) mg/dL Procalcitonin 0.15 H (0.02-0.09) ng/mL Coronavirus (PCR) Detected A (Not Detectd) 06/08/22 Range/Units 22:42 WBC (3.8-10.6) k/uL Neutrophils # (1.3-7.7) k/uL Lymphocytes # (1.0-4.8) k/uL Sodium 135 L (137-145) mmol/L BUN 32 H (9-20) mg/dL Creatinine 1.87 H (0.66-1.25) mg/dL Glucose 153 H (74-99) mg/dL Magnesium 1.5 L (1.6-2.3) mg/dL C-Reactive Protein 6.1 H (<1.0) mg/dL Procalcitonin (0.02-0.09) ng/mL Coronavirus (PCR) (Not Detectd) Assessment and Plan Plan: 1patient present to hospital with shortness of breath and cough in this patient did have a fever and a positive COVID test likely secondary to acute COVID-19 infection however the patient did not have any evidence of pneumonia on the chest x-ray and the patient is not hypoxic or need for supplemental oxygen those 2 factors will disqualify for need for the use of remdesivir or steroids. 2 Patient did have mild elevated BUN and creatinine possible component of dehydration and will benefit from gentle hydration 3patient to continue with the Eliquis we will add zinc and ascorbic acid. 4droplet isolation. We will follow on clinical condition and cultures to further adjust medication if needed Thank you for this consultation will follow this patient along with you Time with Patient: Greater than 30
[2022-06-10 08:03] VITALS: BP 128/48; PULSE 49; RESP 18; TEMP 97.9
[2022-06-10] MEDS: busPIRone HCl 10 MG TAB PO SCH (08:15)
[2022-06-10] MEDS: METOPROLOL SUCCINATE (ER) 50 MG TAB.ER.24H PO SCH (08:16)
[2022-06-10] MEDS: DOXAZOSIN 2 MG TAB PO SCH (08:16)
[2022-06-10] MEDS: PANTOPRAZOLE 40 MG TABLET PO SCH (08:16)
[2022-06-10] MEDS: APIXABAN 5 MG TAB PO SCH (08:16)
[2022-06-10] MEDS ORDERED: CHOLECALCIFEROL 125 MCG (5000 IU) TABLET PO SCH (09:00)
[2022-06-10] MEDS ORDERED: ZINC SULFATE 220 MG CAP PO SCH (09:00)
[2022-06-10] MEDS ORDERED: ASCORBIC ACID 500 MG TAB PO SCH (09:00)
[2022-06-10 10:23] LABS: Basophils # (A) 0.02 X 10*3/uL (0.00-0.10); Basophils % (A) 0.1 %; Eosinophils # (A) 0.01 X 10*3/uL (0.04-0.35); Eosinophils % (A) 0.1 %; HCT 36.6 % (39.6-50.0); HGB 12.5 g/dL (13.0-17.0); Immature Grans, Automated 0.7 %; Lymphocytes # (A) 1.62 X 10*3/uL (0.90-5.00); Lymphocytes % (A) 11.5 %; MCH 30.9 pg (27.0-32.0); MCHC 34.2 g/dL (32.0-37.0); MCV 90.6 fL (80.0-97.0); Mean Platelet Volume 10.3 fL (9.5-12.2); Monocytes # (A) 0.91 X 10*3/uL (0.20-1.00); Monocytes % (A) 6.5 %; NRBC Per 100 WBC 0 /100 WBCS (0.0-0.0); Neutrophils # (A) 11.42 X 10*3/uL (1.80-7.70); Neutrophils % (A) 81.1 %; Platelet Count 232 X 10*3/uL (140-440); RBC 4.04 X 10*6/uL (4.40-5.60); WBC 14.08 X 10*3/uL (4.50-10.00)
[2022-06-10 10:49] LABS: African American GFR (CKD) 53.1 (60.0-200.0); Albumin 3.7 g/dL (3.8-4.9); Albumin/Globulin Ratio 1.68 (1.60-3.17); Anion Gap 9.1 mmol/L (10.00-18.00); BUN/Creat Ratio 24.07 Ratio (12.00-20.00); Blood Urea Nitrogen 33.7 mg/dL (9.0-27.0); C Reactive Protein 4.8 mg/dL (0.00-0.80); Calcium 9.1 mg/dL (8.7-10.3); Carbon Dioxide 23.9 mmol/L (20.0-27.5); Globulin 2.2 g/dL (1.6-3.3); Magnesium 1.9 mg/dL (1.5-2.4); Non-African American GFR(CKD) 45.8 (60.0-200.0); Phosphorus 2.6 mg/dL (2.4-5.1); Potassium 4.3 mmol/L (3.5-5.5); Total Bilirubin 0.5 mg/dL (0.30-1.20); Total Protein 5.9 g/dL (6.2-8.2)
--- NOTE | 2022-06-10 12:09 | P.DS ---
Providers Date of admission: 06/09/22 00:21 Expected date of discharge: 06/10/22 Attending physician: Zackary Bunn MD Consults: 06/09/22 04:57 Consult Physician Urgent Consulting Provider: Mark Marks Consult Reason/Comments: Raghu WELSHevir Do you want consulting provider notified?: Yes Primary care physician: Stated None Hospital Course: Discharge Diagnosis: COVID-19 infection Cough Leukocytosis Hypomagnesemia Atrial fibrillation Dyslipidemia Hypertension Hypothyroidism Hospital Course: 82-year-old male with history of CAD, hypertension, dyslipidemia, atrial fibrillation, CKD presented with complaints of fevers, chills, cough, and shortness of breath. He was tested positive for COVID-19. His chest x-ray was negative for any acute cardiopulmonary process. His renal function was similar to his prior levels. He also had slight leukocytosis. Initially he was febrile on admission, which resolved with Tylenol. He was also seen by infectious disea se, was started on zinc and ascorbic acid. Patient was not hypoxic or needed supplemental oxygen, was not started on Remdesivir or steroids. Patient continues to have mild cough secondary to COVID-19 infection. He will be discharged with lozenges. Patient seen and examined at bedside. Vital signs reviewed and stable. General: nontoxic, no distress, appears at stated age Derm: warm, dry Head: atraumatic, normocephalic, symmetric Eyes: EOMI, no lid lag, anicteric sclera Mouth: no lip lesion, mucus membranes moist Cardiovascular: S1S2 irregular, systolic murmur Lungs: CTA bilateral, no rhonchi, no rales , no accessory muscle use Abdominal: soft, nontender to palpation, no guarding, no appreciable organomegaly Ext: no gross muscle atrophy, no edema, no contractures Neuro: CN II-XI grossly intact, no focal neuro deficits Psych: Alert, oriented, appropriate affect A total of 7 minutes of time were spent preparing this complex discharge summary. Patient was discharged on 06/10/22 at 10:25. Patient Condition at Discharge: Stable Plan - Discharge Summary Discharge Rx Participant: No New Discharge Prescriptions: New Benzocaine/Menthol Lozeng [Cepacol lozenge] 1 each MUCOUS MEM Q2H PRN #20 lozenge PRN Reason: Sore Throat Ascorbic Acid [Vitamin C] 1,000 mg PO DAILY #30 tab Zinc Sulfate [Orazinc] 220 mg PO DAILY #30 cap Acetaminophen Tab [Tylenol] 650 mg PO Q6HR PRN #60 tab PRN Reason: Fever And/ Or Pain Cholecalciferol [Vitamin D3 (125 Mcg = 5000 Iu)] 125 mcg PO DAILY #30 tab Continue Simvastatin [Zocor] 40 mg PO HS Omeprazole [PriLOSEC] 20 mg PO BID Apixaban [Eliquis] 5 mg PO BID Fluticasone Nasal [place] [Flonase Nasal [place]] 1 spray EA NOSTRIL DAILY PRN PRN Reason: Congestion Montelukast [Singulair] 10 mg PO HS Furosemide [Lasix] 40 mg PO DAILY Metoprolol Succinate (ER) [Toprol XL] 50 mg PO BID Levothyroxine Sodium [Synthroid] 88 mcg PO DAILY Spironolactone [Aldactone] 25 mg PO DAILY #30 tab Doxazosin [Cardura] 2 mg PO DAILY traZODone HCL [Desyrel] 100 mg PO HS Potassium Chloride [Klor-Con 10 ER] 10 meq PO DAILY busPIRone HCL 10 mg PO TID Discharge Medication List Simvastatin [Zocor] 40 mg PO HS 02/09/14 [History] Omeprazole [PriLOSEC] 20 mg PO BID 09/12/14 [History] Apixaban [Eliquis] 5 mg PO BID 01/16/18 [History] Fluticasone Nasal [place] [Flonase Nasal [place]] 1 spray EA NOSTRIL DAILY PRN 06/24/19 [History] Montelukast [Singulair] 10 mg PO HS 06/24/19 [History] Furosemide [Lasix] 40 mg PO DAILY 07/13/19 [History] Levothyroxine Sodium [Synthroid] 88 mcg PO DAILY 07/13/19 [History] Metoprolol Succinate (ER) [Toprol XL] 50 mg PO BID 07/13/19 [History] Spironolactone [Aldactone] 25 mg PO DAILY #30 tab 07/15/19 [Rx] Doxazosin [Cardura] 2 mg PO DAILY 06/09/22 [History] Potassium Chloride [Klor-Con 10 ER] 10 meq PO DAILY 06/09/22 [History] busPIRone HCL 10 mg PO TID 10/10/22 [History] traZODone HCL [Desyrel] 100 mg PO HS 06/09/22 [History] Acetaminophen Tab [Tylenol] 650 mg PO Q6HR PRN #60 tab 06/10/22 [Rx] Ascorbic Acid [Vitamin C] 1,000 mg PO DAILY #30 tab 06/10/22 [Rx] Benzocaine/Menthol Lozeng [Cepacol lozenge] 1 each MUCOUS MEM Q2H PRN #20 lozenge 06/10/22 [Rx] Cholecalciferol [Vitamin D3 (125 Mcg = 5000 Iu)] 125 mcg PO DAILY #30 tab 06/10/22 [Rx] Zinc Sulfate [Orazinc] 220 mg PO DAILY #30 cap 06/10/22 [Rx] Follow up Appointment(s)/Referral(s): None,Stated [Primary Care Provider] - 1-2 days Patient Instructions/Handouts: COVID-19 (Coronavirus Disease 2019) (DC), COVID- 19: Slow the Coronavirus Spread (DC) Activity/Diet/Wound Care/Special Instructions: Please see your PCP in 1 week. Discharge Disposition: HOME SELF-CARE
== END 2022-06-10 11:48 | disposition home or self-care (01) ==
LOC: EC 21:03 → 6NMEDSUR 06-09 00:21
PROVIDERS: ADMIT Internal Medicine; ATTEND Internal Medicine
DX: U07.1 COVID-19 (principal); E83.42 Hypomagnesemia; I12.9 Hypertensive chronic kidney disease with stage 1 through stage 4 chronic kidney disease, or unspecified chronic kidney disease; N18.30 Chronic kidney disease, stage 3 unspecified; I44.7 Left bundle-branch block, unspecified; I25.10 Atherosclerotic heart disease of native coronary artery without angina pectoris; R11.0 Nausea; R10.9 Unspecified abdominal pain; R19.7 Diarrhea, unspecified; I25.2 Old myocardial infarction; E78.5 Hyperlipidemia, unspecified; I48.91 Unspecified atrial fibrillation; K21.9 Gastro-esophageal reflux disease without esophagitis; N40.0 Benign prostatic hyperplasia without lower urinary tract symptoms; E03.9 Hypothyroidism, unspecified; Z79.01 Long term (current) use of anticoagulants; Z79.890 Hormone replacement therapy; Z79.899 Other long term (current) drug therapy; Z91.040 Latex allergy status; Z91.011 Allergy to milk products; Z88.5 Allergy status to narcotic agent; Z91.048 Other nonmedicinal substance allergy status; Z85.828 Personal history of other malignant neoplasm of skin; Z96.651 Presence of right artificial knee joint; Z98.42 Cataract extraction status, left eye; Z98.890 Other specified postprocedural states; Z80.7 Family history of other malignant neoplasms of lymphoid, hematopoietic and related tissues; Z80.41 Family history of malignant neoplasm of ovary
CPT/HCPCS: 96361 ×3; 96365; 96372; 96375; 99285; 36415; 93005; 80053 ×2; 83605; 83615; 83735 ×2; 84100; 85025 ×2; 86140 ×2; 81001; 84145; 87635; 71046; G0378 ×2; J1100; J2405; J3475; J1885; J1644

== ENCOUNTER 2025-01-31 11:35 | Inpatient (IN) | payer MEDICARE ==
[2025-01-31 12:15] LABS: Basophils # (A) 0.05 10*3/uL (0.00-0.10); Basophils % (A) 0.6 %; Eosinophils % (A) 3.6 %; HCT 29.6 % (39.6-50.0); HGB 9.6 g/dL (13.0-17.0); Lymphocytes % (A) 15.7 %; MCHC 32.4 g/dL (32.0-37.0); MCV 95.5 fL (80.0-97.0); Monocytes # (A) 0.69 10*3/uL (0.20-1.00); Monocytes % (A) 8.3 %; Neutrophils # (A) 5.87 10*3/uL (1.80-7.70); Neutrophils % (A) 71.1 %; Platelet Count 286 10*3/uL (140-440); RDW 14.9 % (11.5-14.5); WBC 8.27 10*3/uL (4.50-10.00)
--- NOTE | 2025-01-31 12:22 | ED ---
General Adult HPI - General Chief complaint: Shortness of Breath Stated complaint: Shortness of Breath Time Seen by Provider: 01/31/25 11:40 Source: patient, EMS, RN notes reviewed, old records reviewed Mode of arrival: EMS - History of Present Illness Initial comments: This is an 85-year-old male who presents to the emergency department complaining of difficulty breathing. Patient states that started last night. Patient states is worse with lying down and sitting up. Patient denies any any fever or chills. Patient denies a cough. Patient denies any chest pain or palpitations. Patient has abdominal pain patient has nausea vomiting diarrhea. - Related Data Home Medications Medication Instructions Recorded Confirmed Simvastatin [Zocor] 40 mg PO DAILY 02/09/14 01/31/25 Omeprazole [PriLOSEC] 20 mg PO BID 09/12/14 01/31/25 Apixaban [Eliquis] 5 mg PO BID 01/16/18 01/31/25 Levothyroxine Sodium [Synthroid] 88 mcg PO DAILY 07/13/19 01/31/25 Metoprolol Succinate (ER) [Toprol 25 mg PO DAILY 07/13/19 01/31/25 XL] Doxazosin [Cardura] 2 mg PO DAILY 06/09/22 01/31/25 Potassium Chloride [Klor-Con 10 ER] 10 meq PO DAILY 06/09/22 01/31/25 busPIRone HCL 10 mg PO TID PRN 06/09/22 01/31/25 traZODone HCL [Desyrel] 50 - 100 mg PO HS 06/09/22 01/31/25 Aspirin EC [Ecotrin Low Dose] 81 mg PO DAILY 01/31/25 01/31/25 Previous Rx's Medication Instructions Recorded Spironolactone [Aldactone] 25 mg PO DAILY #30 tab 07/15/19 Allergies Allergy/AdvReac Type Severity Reaction Status Date / Time silicone Allergy Rash/Hives Verified 01/31/25 14:18 hydromorphone HCl AdvReac Nausea & Verified 01/31/25 14:18 [From Dilaudid] Vomiting Milk Containing Products AdvReac Diarrhea Verified 01/31/25 14:18 (Dairy) [Milk Containing Products] powder from latex gloves Allergy Rash/Hives Uncoded 01/31/25 11:51 Review of Systems ROS Statement: Those systems with pertinent positive or pertinent negative responses have been documented in the HPI. ROS Other: All systems not noted in ROS Statement are negative. Past Medical History Past Medical History: Atrial Fibrillation, Coronary Artery Disease (CAD), GERD/Reflux, Hyperlipidemia, Hypertension, Myocardial Infarction ([place]), Prostate Disorder, Thyroid Disorder Additional Past Medical History / Comment(s): Enlarged Prostate, States [place] 30 years ago. Last Myocardial Infarction Date:: 1987 History of Any Multi-Drug Resistant Organisms: None Reported Past Surgical History: Heart Catheterization, Hernia Repair, Orthopedic Surgery Additional Past Surgical History / Comment(s): skin cancer, L eye cataract, R knee replacement Past Anesthesia/Blood Transfusion Reactions: No Reported Reaction Past Psychological History: No Psychological Hx Reported Smoking Status: Former smoker Past Alcohol Use History: None Reported Past Drug Use History: None Reported - Past Family History Mother Family Medical History: No Reported History Sister(s) Family Medical History: Cancer Additional Family Medical History / Comment(s): Ovarian Brother(s) Family Medical History: Cancer Additional Family Medical History / Comment(s): Non-Hodgkins Lymphoma General Exam - General Exam Comments Initial Comments: GENERAL: Patient is well-developed and well-nourished. Patient is nontoxic and well- hydrated and is in mild distress. ENT: Neck is soft and supple. No significant lymphadenopathy is noted. Oropharynx is clear. Moist mucous membranes. Neck has full range of motion without eliciting any pain. EYES: The sclera were anicteric and conjunctiva were pink and moist. Extraocular movements were intact and pupils were equal round and reactive to light. Eyelids were unremarkable. PULMONARY: Unlabored respirations. Good breath sounds bilaterally. No audible rales rhonchi or wheezing was noted. CARDIOVASCULAR: There is a regular rate and rhythm without any murmurs gallops or rubs. ABDOMEN: Soft and nontender with normal bowel sounds. SKIN: Skin is clear with no lesions or rashes and otherwise unremarkable. NEUROLOGIC: Patient is alert and oriented x3. Cranial nerves II through XII are grossly intact. Motor and sensory are also intact. Normal speech, volume and content. Symmetrical smile. MUSCULOSKELETAL: Normal extremities with adequate strength and full range of motion. LYMPHATICS: No significant lymphadenopathy is noted PSYCHIATRIC: Normal psychiatric evaluation. Course Vital Signs 06/03/25 06/03/25 06/03/25 11:40 12:03 14:32 Temperature 97.2 F L Pulse Rate 95 96 Respiratory 18 18 18 Rate Blood Pressure 138/80 136/98 O2 Sat by Pulse 97 96 Oximetry Medical Decision Making - Medical Decision Making EKG is interpreted by myself. EKG shows atrial fibrillation at 98 bpm QRS under 60 QT interval 395 QTc of 450. Patient EKG shows multiple PVCs. Was pt. sent in by a medical professional or institution (, SANG, PRODUCTION OPERATIONS INSPECTOR, urgent care, hospital, or halfway...) When possible be specific @ -No Did you speak to anyone other than the patient for history (EMS, parent, family, police, friend...)? What history was obtained from this source @ -No Did you review nursing and triage notes (agree or disagree)? Why? @ -I reviewed and agree with nursing and triage notes Were old charts reviewed (outside hosp., previous admission, EMS record, old EKG, old radiological studies, urgent care reports/EKG's, halfway records)? Report findings @ -No old charts were reviewed Differential Diagnosis? @ -Differential Dyspnea: Coronary syndrome, arrhythmia, tamponade, asthma, COPD, pulmonary embolism, pneumonia, pneumothorax, pulmonary effusion, anaphylaxis, diabetic ketoacidosis, flailed chest, pulmonary contusion, diaphragmatic rupture, anemia, neuromuscular, this is not meant to be an all-inclusive list. EKG interpreted by me (3pts min.). @ -As above X-rays interpreted by me (1pt min.). @ -Chest x-ray shows acute pulmonary edema CT interpreted by me (1pt min.). @ -None done U/S interpreted by me (1pt. min.). @ -None done What testing was considered but not performed or refused? (CT, X-rays, U/S, labs)? Why? @ -None What meds were considered but not given or refused? Why? @ -None Did you discuss the management of the patient with other professionals (professionals i.e. SANG Johnson, PRODUCTION OPERATIONS INSPECTOR, lab, RT, psych nurse, home health care social worker, keyboard instrument repairer, teacher, technology officer, dependency case manager)? Give summary @ -I spoke with Dr. Alcaraz he agreed to admit the patient admit the patient wrote admitting orders Was smoking cessation discussed for >3mins.? @ -No Was critical care preformed (if so, how long)? @ -No Were there social determinants of health that impacted care today? How? (Homelessness, low income, unemployed, alcoholism, drug addiction, transportation, low edu. Level, literacy, decrease access to med. care, snf, rehab)? @ -No Was there de-escalation of care discussed even if they declined (Discuss DNR or withdrawal of care, Hospice)? DNR status @ -No What co-morbidities impacted this encounter? (DM, HTN, Smoking, COPD, CAD, Cancer, CVA, ARF, Chemo, Hep., AIDS, mental health diagnosis, sleep apnea, morbid obesity)? @ -None Was patient admitted / discharged? Hospital course, mention meds given and route, prescriptions, significant lab abnormalities, going to OR and other pertinent info. @ -Patient was given Lasix and Nitropaste while in the emergency department. Patient will be admitted to Dr. Alcaraz for acute pulmonary edema. Patient will have a cardiology consult Undiagnosed new problem with uncertain prognosis? @ -No Drug Therapy requiring intensive monitoring for toxicity (Heparin, Nitro, Insulin, Cardizem)? @ -No Were any procedures done? @ -No Diagnosis/symptom? @ -Acute pulmonary edema Acute, or Chronic, or Acute on Chronic? @ -Acute Uncomplicated (without systemic symptoms) or Complicated (systemic symptoms)? @ -Complicated Side effects of treatment? @ -No Exacerbation, Progression, or Severe Exacerbation? @ -No Poses a threat to life or bodily function? How? (Chest pain, [place], [place], pneumonia, PE, COPD, DKA, ARF, appy, cholecystitis, CVA, Diverticulitis, Homicidal, Suicidal, threat to staff... and all critical care pts) @ -Yes this could lead to hypoxia and endorgan dysfunction Diagnosis/symptom? @ -Hypomagnesemia Acute, or Chronic, or Acute on Chronic? @ -Acute Uncomplicated (without systemic symptoms) or Complicated (systemic symptoms)? @ -Complicated Side effects of treatment? @ -None Exacerbation, Progression, or Severe Exacerbation] @ -No Poses a threat to life or bodily function? @ -No - Lab Data Result diagrams: 01/31/25 11:56 01/31/25 11:56 Lab Results 01/31/25 01/31/25 01/31/25 Range/Units 11:56 11:56 11:56 WBC 8.27 (4.50-10.00) 10*3/uL RBC 3.10 L (4.40-5.60) 10*6/uL Hgb 9.6 L (13.0-17.0) g/dL Hct 29.6 L (39.6-50.0) % MCV 95.5 (80.0-97.0) fL MCH 31.0 (27.0-32.0) pg MCHC 32.4 (32.0-37.0) g/dL Plt Count 286 (140-440) 10*3/uL MPV 10.0 (9.5-12.2) fL Immature Gran % (Auto) 0.7 % Neutrophils % 71.1 % Lymphocytes % 15.7 % Monocytes % 8.3 % Eosinophils % 3.6 % Basophils % 0.6 % Immature Gran # 0.06 H (0.00-0.04) 10*3/uL Neutrophils # 5.87 (1.80-7.70) 10*3/uL Lymphocytes # 1.30 (0.90-5.00) 10*3/uL Monocytes # 0.69 (0.20-1.00) 10*3/uL Eosinophils # 0.30 (0.04-0.35) 10*3/uL Basophils # 0.05 (0.00-0.10) 10*3/uL PT 13.6 H (10.0-12.5) sec INR 1.3 H (<1.2) APTT 29.5 (22.0-30.0) sec Sodium 142 (137-145) mmol/L Potassium 5.0 (3.5-5.1) mmol/L Chloride 114 H (98-107) mmol/L Carbon Dioxide 17 L (22-30) mmol/L Anion Gap 11 mmol/L BUN 32 H (9-20) mg/dL Creatinine 2.31 H (0.66-1.25) mg/dL Est GFR (CKD-EPI)AfAm 28 (>60 ml/min/1.73 sqM) Est GFR (CKD-EPI)NonAf 25 (>60 ml/min/1.73 sqM) Glucose 151 H (74-99) mg/dL Plasma Lactic Acid Jesús (0.7-2.0) mmol/L Calcium 9.0 (8.4-10.2) mg/dL Magnesium 0.9 L* (1.6-2.3) mg/dL Total Bilirubin 0.7 (0.2-1.3) mg/dL AST 22 (17-59) U/L ALT 16 (4-49) U/L Alkaline Phosphatase 113 (38-126) U/L Troponin I (0.000-0.034) ng/mL NT-Pro-B Natriuret Pep 8990 pg/mL Total Protein 6.2 L (6.3-8.2) g/dL Albumin 3.3 L (3.5-5.0) g/dL 01/31/25 01/31/25 Range/Units 11:56 11:56 WBC (4.50-10.00) 10*3/uL RBC (4.40-5.60) 10*6/uL Hgb (13.0-17.0) g/dL Hct (39.6-50.0) % MCV (80.0-97.0) fL MCH (27.0-32.0) pg MCHC (32.0-37.0) g/dL Plt Count (140-440) 10*3/uL MPV (9.5-12.2) fL Immature Gran % (Auto) % Neutrophils % % Lymphocytes % % Monocytes % % Eosinophils % % Basophils % % Immature Gran # (0.00-0.04) 10*3/uL Neutrophils # (1.80-7.70) 10*3/uL Lymphocytes # (0.90-5.00) 10*3/uL Monocytes # (0.20-1.00) 10*3/uL Eosinophils # (0.04-0.35) 10*3/uL Basophils # (0.00-0.10) 10*3/uL PT (10.0-12.5) sec INR (<1.2) APTT (22.0-30.0) sec Sodium (137-145) mmol/L Potassium (3.5-5.1) mmol/L Chloride (98-107) mmol/L Carbon Dioxide (22-30) mmol/L Anion Gap mmol/L BUN (9-20) mg/dL Creatinine (0.66-1.25) mg/dL Est GFR (CKD-EPI)AfAm (>60 ml/min/1.73 sqM) Est GFR (CKD-EPI)NonAf (>60 ml/min/1.73 sqM) Glucose (74-99) mg/dL Plasma Lactic Acid Jesús 1.0 (0.7-2.0) mmol/L Calcium (8.4-10.2) mg/dL Magnesium (1.6-2.3) mg/dL Total Bilirubin (0.2-1.3) mg/dL AST (17-59) U/L ALT (4-49) U/L Alkaline Phosphatase (38-126) U/L Troponin I 0.034 (0.000-0.034) ng/mL NT-Pro-B Natriuret Pep pg/mL Total Protein (6.3-8.2) g/dL Albumin (3.5-5.0) g/dL Disposition Clinical Impression: Acute pulmonary edema, Hypomagnesemia Disposition: ADMITTED IP TO THIS HOSP Referrals: None,Stated [REFERRING] - 1-2 days Time of Disposition: 14:35
--- NOTE | 2025-01-31 12:23 | XR ---
EXAMINATION TYPE: XR chest 2V DATE OF EXAM: 01/31/2025 CLINICAL INDICATION: Male, 85 years old with history of difficulty breathing, TECHNIQUE: Frontal and lateral views of the chest are obtained. COMPARISON: Chest x-ray June 08, 2022 FINDINGS: There is mild cardiomegaly with small bilateral pleural effusions. No suspicious focal ai rspace opacity or pneumothorax seen bilaterally. The osseous structures are intact. IMPRESSION: Findings are consistent with CHF exacerbation. Correlate clinically. [facility], , 01/31/2025 12:21 PM
[2025-01-31 12:35] LABS: ALT 16 U/L (4-49); AST 22 U/L (17-59); African American GFR (CKD) 28 (>60 ml/min/1.73 sqM); Albumin 3.3 g/dL (3.5-5.0); Alkaline Phosphatase 113 U/L (38-126); Anion Gap 11 mmol/L; Blood Urea Nitrogen 32 mg/dL (9-20); Carbon Dioxide 17 mmol/L (22-30); Chloride 114 mmol/L (98-107); Glucose 151 mg/dL (74-99); Non-African American GFR(CKD) 25 (>60 ml/min/1.73 sqM); Sodium 142 mmol/L (137-145); Total Bilirubin 0.7 mg/dL (0.2-1.3); Total Protein 6.2 g/dL (6.3-8.2)
[2025-01-31 12:43] LABS: NT-Pro-B-Type Natriuretic Pept 8990 pg/mL
[2025-01-31 12:54] LABS: Magnesium 0.9 mg/dL (1.6-2.3)
[2025-01-31 13:01] LABS: INR 1.3 (<1.2); Partial Thromboplastin Time 29.5 sec (22.0-30.0); Prothrombin Time 13.6 sec (10.0-12.5)
[2025-01-31] MEDS: FUROSEMIDE 10 MG/ML 10 ML VIAL IV STA (14:33)
[2025-01-31] MEDS: MAGNESIUM SULFATE-D5W PMX 1 GM in DEXTROSE/WATER 1 100ML.BAG IVPB SCH (14:36)
[2025-01-31] MEDS: FUROSEMIDE 40 MG TAB PO SCH (15:35)
[2025-01-31] MEDS: PANTOPRAZOLE 40 MG/10 ML VIAL IVP SCH (17:20)
[2025-01-31] MEDS: NITROGLYCERIN OINT 1 INCH/GM PACKET TOPICAL SCH (18:26)
[2025-01-31] MEDS: APIXABAN 2.5 MG TABLET PO SCH (20:21)
[2025-01-31] MEDS ORDERED: NON FORMULARY DRUG (Omeprazole [Prilosec] 20 MG Capsule.Dr) PO SCH (21:00)
[2025-02-01] MEDS: PANTOPRAZOLE 40 MG TABLET PO SCH (06:58)
[2025-02-01] MEDS: LEVOTHYROXINE 88 MCG TAB PO SCH (06:58)
[2025-02-01 08:16] LABS: Basophils # (A) 0.05 10*3/uL (0.00-0.10); Basophils % (A) 0.5 %; Eosinophils # (A) 0.39 10*3/uL (0.04-0.35); Eosinophils % (A) 4.2 %; HCT 28.5 % (39.6-50.0); HGB 9.2 g/dL (13.0-17.0); Lymphocytes % (A) 15.2 %; MCH 30.4 pg (27.0-32.0); MCHC 32.3 g/dL (32.0-37.0); MCV 94.1 fL (80.0-97.0); Monocytes # (A) 0.89 10*3/uL (0.20-1.00); Monocytes % (A) 9.7 %; Neutrophils # (A) 6.43 10*3/uL (1.80-7.70); Platelet Count 296 10*3/uL (140-440); RBC 3.03 10*6/uL (4.40-5.60); RDW 14.6 % (11.5-14.5)
[2025-02-01 08:34] LABS: African American GFR (CKD) 23 (>60 ml/min/1.73 sqM); Anion Gap 11 mmol/L; Blood Urea Nitrogen 33 mg/dL (9-20); Calcium 9.1 mg/dL (8.4-10.2); Carbon Dioxide 19 mmol/L (22-30); Chloride 111 mmol/L (98-107); Glucose 119 mg/dL (74-99); Magnesium 1.3 mg/dL (1.6-2.3); Non-African American GFR(CKD) 20 (>60 ml/min/1.73 sqM); Potassium 4.5 mmol/L (3.5-5.1); Sodium 141 mmol/L (137-145)
[2025-02-01] MEDS: METOPROLOL SUCCINATE (ER) 50 MG TAB.ER.24H PO SCH (10:12)
[2025-02-01] MEDS: ASPIRIN 81 MG PO SCH (10:13)
[2025-02-01] MEDS: ATORVASTATIN 20 MG TAB PO SCH (10:13)
--- NOTE | 2025-02-01 10:48 | P.HPIM ---
History of Present Illness H&P Date: 02/01/25 This is an 85-year-old gentleman with past medical history significant for atrial fibrillation, CAD, [place], gastroesophageal reflux disease, hypertension, hyperlipidemia, prostate disorder, hypothyroidism, former nicotine dependence, obesity and multiple other medical issues presented to the ER with complaints of progressive shortness of breath accompanied by productive cough with clear to yellow sputum x 2 days. Reports increased abdominal girth and mild ankle edema. denies nausea, vomiting and diarrhea . Denies abdominal pain. Denies chest pain, palpitations or shortness of breath. Echo in 2019 reported EF between 20 and 25%. Chest x-ray reported mild cardiomegaly with small bilateral pleural effusions, no suspicious focal airspace opacity or pneumothorax, findings consistent with CHF exacerbation. EKG reporting atrial fibrillation. Maintaining O2 sats in the 90s on room air. Afebrile, normal WBC, hemoglobin 9.2, platelets 296, INR 1.3 sodium 141, potassium 4.5, bicarb 19, BUN 33, c reatinine 2.3increased to 2.73, baseline creatinine 1.4 documented in 2021, glucose 119, hemoglobin A1c 7.6. Magnesium 0.9 on admission, supplemented, repeat level 1.3. proBNP 8990. IVP Lasix initiated in the ER. Review of Systems ROS Statement: Those systems with pertinent positive or pertinent negative responses have been documented in the HPI. ROS Other: All systems not noted in ROS Statement are negative. Past Medical History Past Medical History: Atrial Fibrillation, Coronary Artery Disease (CAD), GERD/Reflux, Hyperlipidemia, Hypertension, Myocardial Infarction ([place]), Prostate Disorder, Thyroid Disorder Additional Past Medical History / Comment(s): Enlarged Prostate, States [place] 30 years ago. Last Myocardial Infarction Date:: 1987 History of Any Multi-Drug Resistant Organisms: None Reported Past Surgical History: Heart Catheterization, Hernia Repair, Orthopedic Surgery Additional Past Surgical History / Comment(s): skin cancer, L eye cataract, R knee replacement Past Anesthesia/Blood Transfusion Reactions: No Reported Reaction Smoking Status: Former smoker - Past Family History Mother Family Medical History: No Reported History Sister(s) Family Medical History: Cancer Additional Family Medical History / Comment(s): Ovarian Brother(s) Family Medical History: Cancer Additional Family Medical History / Comment(s): Non-Hodgkins Lymphoma Medications and Allergies Home Medications Medication Instructions Recorded Confirmed Type Simvastatin [Zocor] 40 mg PO DAILY 02/09/14 01/31/25 History Omeprazole [PriLOSEC] 20 mg PO BID 09/12/14 01/31/25 History Apixaban [Eliquis] 5 mg PO BID 01/16/18 01/31/25 History Levothyroxine Sodium [Synthroid] 88 mcg PO DAILY 07/13/19 01/31/25 History Metoprolol Succinate (ER) [Toprol 25 mg PO DAILY 07/13/19 01/31/25 History XL] Spironolactone [Aldactone] 25 mg PO DAILY #30 tab 07/15/19 01/31/25 Rx Doxazosin [Cardura] 2 mg PO DAILY 06/09/22 01/31/25 History Potassium Chloride [Klor-Con 10 ER] 10 meq PO DAILY 06/09/22 01/31/25 History busPIRone HCL 10 mg PO TID PRN 06/09/22 01/31/25 History traZODone HCL [Desyrel] 50 - 100 mg PO HS 06/09/22 01/31/25 History Aspirin EC [Ecotrin Low Dose] 81 mg PO DAILY 01/31/25 01/31/25 History Allergies Allergy/AdvReac Type Severity Reaction Status Date / Time silicone Allergy Rash/Hives Verified 01/31/25 14:18 hydromorphone HCl AdvReac Nausea & Verified 01/31/25 14:18 [From Dilaudid] Vomiting Milk Containing Products AdvReac Diarrhea Verified 01/31/25 14:18 (Dairy) [Milk Containing Products] powder from latex gloves Allergy Rash/Hives Uncoded 01/31/25 11:51 Physical Exam Vitals: Vital Signs Temp Pulse Pulse Resp BP BP Pulse Ox 02/01/25 03:34 97.5 F L 90 22 131/75 94 L 02/01/25 01:36 85 22 01/31/25 23:16 97.9 F 85 22 118/73 96 01/31/25 20:00 98.5 F 90 22 131/75 95 01/31/25 18:16 97.5 F L 102 H 22 149/84 98 01/31/25 17:45 97.5 F L 89 18 144/93 96 01/31/25 14:32 96 18 136/98 96 01/31/25 12:03 18 01/31/25 11:40 97.2 F L 95 18 138/80 97 Intake and Output 01/31/25 02/01/25 02/01/25 22:59 06:59 14:59 Intake Total 10 Balance 10 Intake: IV 10 Invasive Line 2 10 Other: Voiding Method Toilet Toilet Urinal Urinal # Voids 1 1 # Bowel Movements 1 Weight 85.729 kg 93.8 kg PHYSICAL EXAM: VITAL SIGNS: [Reviewed] GENERAL: Elderly male, well-developed, well-nourished ,alert and oriented x 3, no acute distress [place]. HEENT: Normocephalic, atraumatic ,conjunctivae normal. eyes normal. Sclera anicteric. NECK: Supple, no JVD. No thyroid enlargement. No LNs CARDIOVASCULAR: S1, S2, irregular rate and rhythm. Systolic murmur RESPIRATION: Unlabored, equal air entry, diminished with fine expiratory wheeze. ABDOMEN: Soft, distended, nontender . No guarding. no masses palpable. No ascites, No hepatosplenomegaly.Bowel sounds heard. LEGS: Mild lower extremity edema, no calf tenderness. Peripheral pulses intact. NERVOUS SYSTEM: Cranial N 2-12 grossly normal. No focal deficits. Strength and sensation grossly intact. Skin: Warm and dry, no rash Results CBC & Chem 7: 02/01/25 07:12 02/02/25 06:00 Labs: Abnormal Lab Results - Last 24 Hours (Table) 01/31/25 01/31/25 01/31/25 Range/Units 11:56 11:56 11:56 RBC 3.10 L (4.40-5.60) 10*6/uL Hgb 9.6 L (13.0-17.0) g/dL Hct 29.6 L (39.6-50.0) % Immature Gran # 0.06 H (0.00-0.04) 10*3/uL Eosinophils # (0.04-0.35) 10*3/uL PT 13.6 H (10.0-12.5) sec INR 1.3 H (<1.2) Chloride 114 H (98-107) mmol/L Carbon Dioxide 17 L (22-30) mmol/L BUN 32 H (9-20) mg/dL Creatinine 2.31 H (0.66-1.25) mg/dL Glucose 151 H (74-99) mg/dL Hemoglobin A1c (<=6.0) % Magnesium 0.9 L* (1.6-2.3) mg/dL Total Protein 6.2 L (6.3-8.2) g/dL Albumin 3.3 L (3.5-5.0) g/dL 01/31/25 02/01/25 02/01/25 Range/Units 11:56 07:12 07:12 RBC 3.03 L (4.40-5.60) 10*6/uL Hgb 9.2 L (13.0-17.0) g/dL Hct 28.5 L (39.6-50.0) % Immature Gran # (0.00-0.04) 10*3/uL Eosinophils # 0.39 H (0.04-0.35) 10*3/uL PT (10.0-12.5) sec INR (<1.2) Chloride 111 H (98-107) mmol/L Carbon Dioxide 19 L (22-30) mmol/L BUN 33 H (9-20) mg/dL Creatinine 2.73 H (0.66-1.25) mg/dL Glucose 119 H (74-99) mg/dL Hemoglobin A1c 7.6 H (<=6.0) % Magnesium 1.3 L (1.6-2.3) mg/dL Total Protein (6.3-8.2) g/dL Albumin (3.5-5.0) g/dL Thrombosis Risk Factor Assmnt - Choose All That Apply Any of the Below Risk Factors Present?: Yes Each Factor Represents 1 point: Abnormal pulmonary function (COPD) Other Risk Factors: Yes Each Risk Factor Represents 3 Points: Age 75 years or older Other congenital or acquired thrombophilia - If yes, enter type in comment: No Thrombosis Risk Factor Assessment Total Risk Factor Score: 4 Thrombosis Risk Factor Assessment Level: Moderate Risk Assessment and Plan Assessment: Acute CHF exacerbation, systolic dysfunction, prior EF 40%, echo pending Hypomagnesemia Acute kidney injury, cardiorenal Metabolic acidosis secondary to the above Diabetes mellitus, hemoglobin A1c 7.6 Chronic renal failure, stage IIIa, GFR 20, baseline 1.4, suspect related to nephrosclerosis. Chronic atrial fibrillation, anticoagulated on Eliquis CAD, history of [place] Moderate to severe aortic regurgitation Mild to moderate mitral and tricuspid regurgitation Moderate pulmonary hypertension Hypertension Hyperlipidemia Hypothyroidism Benign prostatic hypertrophy Obesity, BMI 31 COPD Prior nicotine dependence gait dyfs, uses cane Plan: Continue on current medication regime ,monitoring and symptomatic treatment. Echo pending. nebulized bronchodilators, Symbicort/Spiriva ordered .magnesium supplementation diuretics. Renal ultrasound ordered .cardiology and nephrology consults in place. Consistent carb diet, NovoLog sliding scale with close monitoring of blood sugars, diabetic teaching. The impression and plan of care has been dictated as directed. : I performed a history and examination of this patient, discussed the same with the dictator. I agree with the dictator's note ,documented as a scribe. Any additional findings or plans will be noted.
[2025-02-01] MEDS ORDERED: ZINC OXIDE PASTE (Z-GUARD) 1 APPLIC TOPICAL PRN (11:07)
--- NOTE | 2025-02-01 11:32 | P.CRDCN ---
History of Present Illness Consult date: 02/01/25 Reason for Consult (text): Acute pulmonary edema History of present illness: This is an 85-year-old male patient of Dr. Ehsan Nguyễn with past medical history of permanent atrial fibrillation, hypertension, dyslipidemia, mitral and aortic regurgitation. We have been asked to evaluate the patient for acute pulmonary edema. Patient gives history of having significant cough for the past 2 nights and unable to sleep. He states his son who is his primary caregiver has also had a cough. He states the cough is improved at this time. Prior to 2 days ago he was feeling well. He denies lightheadedness or dizziness. No chest pain or chest pressure. He has been started on IV Lasix and states he has been put in a diaper and he does not know how much he is urinating. Patient noted to be wheezing but denies history of COPD or asthma. Blood pressure 131/75, heart rate 90, pulse ox 94% on room air. Patient is status post 1 dose of IV Lasix 60 mg followed by 40 mg every 8 hours. Magnesium has been replaced. -EKG: Atrial fibrillation with left bundle branch block. -Chest x-ray: Findings suggest CHF. -Laboratory studies: WBC 9.2, hemoglobin 9.2. INR 1.3. BUN 33 creatinine 2.73. Troponin 0.034. proBNP 8990. Magnesium 0.9 and repeat 1.3. Hemoglobin A1c 7.6 -Home cardiac medications: Eliquis 5 mg twice daily, aspirin 81 mg daily, metoprolol succinate 25 mg daily, Klor-Con 10 milliequivalents daily, simvastatin 40 mg daily, spironolactone 25 mg daily, patient is also on levothyroxine and Cardura. -Echocardiogram performed in the office on 11/07/2024 revealed EF 40%. Severe left ventricular hypertrophy. Moderate to severe aortic regurgitation. Aortic valve is calcified. Ascending aorta is enlarged. Mild to moderate mitral regurgitation. Mitral valve is calcified. Mild to moderate tricuspid regurgitation. PASP 46 mmHg. Review Of Systems: At the time of my exam: CONSTITUTIONAL: Denies fever or chills. HEENT: Denies blurred vision, vision changes, or eye pain. Denies hemoptysis CARDIOVASCULAR: Denies chest pain. Denies orthopnea. Denies PND. Denies palpitations RESPIRATORY: Denies shortness of breath. GASTROINTESTINAL: Denies abdominal pain. Denies nausea or vomiting. HEMATOLOGIC: Denies bleeding disorders. GENITOURINARY: Denies any blood in urine. SKIN: Denies puritis. Denies rash. Physical examination: Gen: This is an 85-year-old male in no acute distress VS: reviewed HEENT: Head is atraumatic, normocephalic. Pupils equal, round. Sclerae is anicteric. NECK: Supple. No JVD. LUNGS: Expiratory wheeze. Few crackles in the bases most likely due to atelectasis. No intercostal retractions. HEART: Irregular rate and rhythm. No murmur. ABDOMEN: Soft No tenderness. EXTREMITIES: No pedal edema. No calf tenderness. NEUROLOGICAL: Patient is awake, alert and oriented x3. Assessment: Acute dyspnea most likely due to pulmonary etiology with component of acute on chronic systolic heart failure with known EF of 40% Acute kidney injury Hypomagnesemia Permanent atrial fibrillation on Eliquis currently rate controlled Hypertension Dyslipidemia Valvular heart disease with moderate to severe aortic regurgitation, mild to moderate mitral regurgitation, mild to moderate tricuspid regurgitation Moderate pulmonary hypertension, PASP 46 Plan: Resume patient's home cardiac medications Decrease Lasix to 40 mg twice daily oral Monitor YASMANI, daily weights, electrolytes and renal function Obtain 2D echocardiogram Obtain procalcitonin, Cepheid viral panel Start patient on DuoNeb treatments May consider rhythm control if patient continues to be symptomatic Further recommendations to follow based upon clinical course Thank you kindly for this consultation. Nurse practitioner note has been reviewed, I agree with documented findings and plan of care. Patient was seen and examined. Past Medical History Past Medical History: Atrial Fibrillation, Coronary Artery Disease (CAD), GERD/Reflux, Hyperlipidemia, Hypertension, Myocardial Infarction (SD), Prostate Disorder, Thyroid Disorder Additional Past Medical History / Comment(s): Enlarged Prostate, States [place] 30 years ago. Last Myocardial Infarction Date:: 1987 History of Any Multi-Drug Resistant Organisms: None Reported Past Surgical History: Heart Catheterization, Hernia Repair, Orthopedic Surgery Additional Past Surgical History / Comment(s): skin cancer, L eye cataract, R kn ee replacement Past Anesthesia/Blood Transfusion Reactions: No Reported Reaction Smoking Status: Former smoker - Past Family History Mother Family Medical History: No Reported History Sister(s) Family Medical History: Cancer Additional Family Medical History / Comment(s): Ovarian Brother(s) Family Medical History: Cancer Additional Family Medical History / Comment(s): Non-Hodgkins Lymphoma Medications and Allergies Home Medications Medication Instructions Recorded Confirmed Type Simvastatin [Zocor] 40 mg PO DAILY 02/09/14 01/31/25 History Omeprazole [PriLOSEC] 20 mg PO BID 09/12/14 01/31/25 History Apixaban [Eliquis] 5 mg PO BID 01/16/18 01/31/25 History Levothyroxine Sodium [Synthroid] 88 mcg PO DAILY 07/13/19 01/31/25 History Metoprolol Succinate (ER) [Toprol 25 mg PO DAILY 07/13/19 01/31/25 History XL] Spironolactone [Aldactone] 25 mg PO DAILY #30 tab 07/15/19 01/31/25 Rx Doxazosin [Cardura] 2 mg PO DAILY 06/09/22 01/31/25 History Potassium Chloride [Klor-Con 10 ER] 10 meq PO DAILY 06/09/22 01/31/25 History busPIRone HCL 10 mg PO TID PRN 06/09/22 01/31/25 History traZODone HCL [Desyrel] 50 - 100 mg PO HS 06/09/22 01/31/25 History Aspirin EC [Ecotrin Low Dose] 81 mg PO DAILY 01/31/25 01/31/25 History Allergies Allergy/AdvReac Type Severity Reaction Status Date / Time silicone Allergy Rash/Hives Verified 01/31/25 14:18 hydromorphone HCl AdvReac Nausea & Verified 01/31/25 14:18 [From Dilaudid] Vomiting Milk Containing Products AdvReac Diarrhea Verified 01/31/25 14:18 (Dairy) [Milk Containing Products] powder from latex gloves Allergy Rash/Hives Uncoded 01/31/25 11:51 Physical Exam Vitals: Vital Signs Temp Pulse Pulse Resp BP BP Pulse Ox 02/01/25 03:34 97.5 F L 90 22 131/75 94 L 02/01/25 01:36 85 22 01/31/25 23:16 97.9 F 85 22 118/73 96 01/31/25 20:00 98.5 F 90 22 131/75 95 01/31/25 18:16 97.5 F L 102 H 22 149/84 98 01/31/25 17:45 97.5 F L 89 18 144/93 96 01/31/25 14:32 96 18 136/98 96 01/31/25 12:03 18 01/31/25 11:40 97.2 F L 95 18 138/80 97 Intake and Output 01/31/25 02/01/25 02/01/25 22:59 06:59 14:59 Intake Total 10 Balance 10 Intake: IV 10 Invasive Line 2 10 Other: Voiding Method Toilet Toilet Urinal Urinal # Voids 1 1 # Bowel Movements 1 Weight 85.729 kg 93.8 kg Results 02/01/25 07:12 02/01/25 07:12 Cardiac Enzymes 01/31/25 01/31/25 Range/Units 11:56 11:56 AST 22 (17-59) U/L Troponin I 0.034 (0.000-0.034) ng/mL Coagulation 01/31/25 Range/Units 11:56 PT 13.6 H (10.0-12.5) sec APTT 29.5 (22.0-30.0) sec CBC 01/31/25 02/01/25 Range/Units 11:56 07:12 WBC 8.27 9.20 (4.50-10.00) 10*3/uL RBC 3.10 L 3.03 L (4.40-5.60) 10*6/uL Hgb 9.6 L 9.2 L (13.0-17.0) g/dL Hct 29.6 L 28.5 L (39.6-50.0) % Plt Count 286 296 (140-440) 10*3/uL Comprehensive Metabolic Panel 01/31/25 02/01/25 Range/Units 11:56 07:12 Sodium 142 141 (137-145) mmol/L Potassium 5.0 4.5 (3.5-5.1) mmol/L Chloride 114 H 111 H (98-107) mmol/L Carbon Dioxide 17 L 19 L (22-30) mmol/L BUN 32 H 33 H (9-20) mg/dL Creatinine 2.31 H 2.73 H (0.66-1.25) mg/dL Glucose 151 H 119 H (74-99) mg/dL Calcium 9.0 9.1 (8.4-10.2) mg/dL AST 22 (17-59) U/L ALT 16 (4-49) U/L Alkaline Phosphatase 113 (38-126) U/L Total Protein 6.2 L (6.3-8.2) g/dL Albumin 3.3 L (3.5-5.0) g/dL Current Medications Generic Name Dose Route Start Last Admin Trade Name Diegoq PRN Reason Stop Dose Admin Apixaban 2.5 mg 01/31/25 21:00 01/31/25 20:21 Apixaban 2.5 Mg Tablet PO 2.5 mg BID HI Administration Protocol Aspirin 81 mg 02/01/25 09:00 Aspirin 81 Mg PO DAILY [facility] Atorvastatin Calcium 20 mg 02/01/25 09:00 Atorvastatin 20 Mg Tab PO DAILY [facility] Furosemide 40 mg 01/31/25 16:00 01/31/25 23:14 Furosemide 40 Mg Tab PO 40 mg Q8HR HI Administration Levothyroxine Sodium 88 mcg 02/01/25 06:30 02/01/25 06:58 Levothyroxine 88 Mcg Tab PO 88 mcg DAILY@0630 [facility] Administration Metoprolol Succinate 25 mg 02/01/25 09:00 Metoprolol Succinate (Er) 50 Mg Tab.Er.24h PO DAILY [facility] Nitroglycerin 1 inch 01/31/25 18:00 02/01/25 06:58 Nitroglycerin Oint 1 Inch/Gm Packet TOPICAL 02/01/25 17:59 1 inch Q6HR HI Administration Pantoprazole Sodium 40 mg 02/01/25 07:30 02/01/25 06:58 Pantoprazole 40 Mg Tablet PO 40 mg [id number] [facility] Administration Intake and Output 01/31/25 02/01/25 02/01/25 22:59 06:59 14:59 Intake Total 10 Balance 10 Intake: IV 10 Invasive Line 2 10 Other: Voiding Method Toilet Toilet Urinal Urinal # Voids 1 1 # Bowel Movements 1 Weight 85.729 kg 93.8 kg 02/01/25 07:12 02/01/25 07:12
[2025-02-01] MEDS ORDERED: IPRATROPIUM-ALBUTEROL 3 ML NEB INHALATION PRN (12:15)
[2025-02-01] MEDS: IPRATROPIUM-ALBUTEROL 3 ML NEB INHALATION SCH (12:19)
[2025-02-01] MEDS: MAGNESIUM SULFATE-D5W PMX 1 GM in DEXTROSE/WATER 1 100ML.BAG IVPB ONE (12:20)
--- NOTE | 2025-02-01 12:47 | P.NPCON ---
History of Present Illness - Reason for Consult acute renal failure - History of Present Illness Patient is an 85-year-old male with history of coronary artery disease, A-fib, hypertension who is admitted to the hospital with complaints of shortness of breath and cough productive of yellowish sputum. No history of fever chills nausea vomiting or abdominal pain. Patient did feel his abdomen was more distended than usual. No previous history of kidney diseases. Serum creatinine was 2.3 mg/dL and increased to 2.7 today. Previous creatinine was 1.4 in 2021. No hypotension noted. Patient states he has been voiding. Chest x-ray showed bilateral pleural effusions and pulmonary vascular congestion. Patient was maintained on IV Lasix which was discontinued today. Shortness of breath has improved. Past Medical History Past Medical History: Atrial Fibrillation, Coronary Artery Disease (CAD), GERD/Reflux, Hyperlipidemia, Hypertension, Myocardial Infarction (NM), Prostate Disorder, Thyroid Disorder Additional Past Medical History / Comment(s): Enlarged Prostate, States [place] 30 years ago. Last Myocardial Infarction Date:: 1987 History of Any Multi-Drug Resistant Organisms: None Reported Past Surgical History: Heart Catheterization, Hernia Repair, Orthopedic Surgery Additional Past Surgical History / Comment(s): skin cancer, L eye cataract, R knee replacement Past Anesthesia/Blood Transfusion Reactions: No Reported Reaction Smoking Status: Former smoker - Past Family History Mother Family Medical History: No Reported History Sister(s) Family Medical History: Cancer Additional Family Medical History / Comment(s): Ovarian Brother(s) Family Medical History: Cancer Additional Family Medical History / Comment(s): Non-Hodgkins Lymphoma Medications and Allergies Home Medications Medication Instructions Recorded Confirmed Type Simvastatin [Zocor] 40 mg PO DAILY 02/09/14 01/31/25 History Omeprazole [PriLOSEC] 20 mg PO BID 09/12/14 01/31/25 History Apixaban [Eliquis] 5 mg PO BID 01/16/18 01/31/25 History Levothyroxine Sodium [Synthroid] 88 mcg PO DAILY 07/13/19 01/31/25 History Metoprolol Succinate (ER) [Toprol 25 mg PO DAILY 07/13/19 01/31/25 History XL] Spironolactone [Aldactone] 25 mg PO DAILY #30 tab 07/15/19 01/31/25 Rx Doxazosin [Cardura] 2 mg PO DAILY 06/09/22 01/31/25 History Potassium Chloride [Klor-Con 10 ER] 10 meq PO DAILY 06/09/22 01/31/25 History busPIRone HCL 10 mg PO TID PRN 06/09/22 01/31/25 History traZODone HCL [Desyrel] 50 - 100 mg PO HS 06/09/22 01/31/25 History Aspirin EC [Ecotrin Low Dose] 81 mg PO DAILY 01/31/25 01/31/25 History Allergies Allergy/AdvReac Type Severity Reaction Status Date / Time silicone Allergy Rash/Hives Verified 01/31/25 14:18 hydromorphone HCl AdvReac Nausea & Verified 01/31/25 14:18 [From Dilaudid] Vomiting Milk Containing Products AdvReac Diarrhea Verified 01/31/25 14:18 (Dairy) [Milk Containing Products] powder from latex gloves Allergy Rash/Hives Uncoded 01/31/25 11:51 Physical Exam Vitals: Vital Signs Temp Pulse Pulse Resp BP BP Pulse Ox 02/01/25 12:30 97.8 F 92 20 127/72 97 02/01/25 08:15 97.4 F L 100 21 136/76 95 02/01/25 08:00 100 21 02/01/25 03:34 97.5 F L 90 22 131/75 94 L 02/01/25 01:36 85 22 01/31/25 23:16 97.9 F 85 22 118/73 96 01/31/25 20:00 98.5 F 90 22 131/75 95 01/31/25 18:16 97.5 F L 102 H 22 149/84 98 01/31/25 17:45 97.5 F L 89 18 144/93 96 01/31/25 14:32 96 18 136/98 96 Intake and Output 01/31/25 02/01/25 02/01/25 22:59 06:59 14:59 Intake Total 10 10 Balance 10 10 Intake: IV 10 10 Invasive Line 2 10 10 Other: Voiding Method Toilet Toilet Toilet Urinal Urinal Urinal Diaper Incontinent # Voids 1 1 # Bowel Movements 1 Weight 85.729 kg 93.8 kg Patient is awake, comfortable, no acute distress Examination of the heart S1 and S2 Examination of the lungs bilateral breath sounds are heard Abdomen is soft nontender Examination lower extremities shows trace edema [employer] exam grossly intact Results - Lab Results Most recent lab results Calcium 9.1 mg/dL (8.4-10.2) 02/01/25 07:12 Magnesium 1.3 mg/dL (1.6-2.3) L 02/01/25 07:12 02/01/25 07:12 02/01/25 07:12 Assessment and Plan Assessment: 1. Acute kidney injury, cardiorenal and associated with recent diuresis. Agree with decreasing Lasix. Check UA and check ultrasound of the kidneys 2. Chronic kidney disease stage IIIa with previous creatinine 1.4 in 2021. Sydni ology is likely nephrosclerosis. Previous UA showed trace proteinuria in 2021. 3. Nongap metabolic acidosis associated with acute kidney injury, improved 4. Hypomagnesemia secondary to proton pump inhibitors, status post replacement 5. Acute CHF exacerbation with decreased ejection fraction of 40% noted on echocardiogram on 11/07/2024 Plan: Agree with decreasing Lasix Check ultrasound of the kidneys Check UA Replace magnesium Repeat labs in a.m. Thank you for the consultation. We will continue to follow the patient with you during his hospitalization.
--- NOTE | 2025-02-01 13:00 | US ---
EXAMINATION TYPE: US kidneys/renal and bladder DATE OF EXAM: 02/01/2025 COMPARISON: CT:08/18/18 CLINICAL INDICATION: Male, 85 years old with history of glynn; glynn TECHNIQUE: Grayscale imaging of the bilateral kidneys and urinary bladder: FINDINGS: EXAM MEASUREMENTS: Right Kidney: 10.4 x 5.2 x 5.4 cm Left Kidney: 9.4 x 5.3 cm Right Kidney: [place] seen. Thin-walled cyst measuring 3.8 x 3.9 x 2.6cm lateral border Left Kidney: [place] seen. Thin-walled cyst measuring 4.9 x 4.3 x 3.7cm lateral border Bladder: appears very distended. Bilateral Jets seen: Only right jet seen No nephrolithiasis is seen. The urinary bladder is significantly distended. IMPRESSION: Moderate right greater than left hydronephrosis. Abnormally distended bladder. Clinical c orrelation and follow-up advised. [facility], , 02/01/2025 12:58 PM
[2025-02-01] MEDS ORDERED: DEXTROSE 50% SYRINGE 50 ML IVP PRN ×2 (13:44)
[2025-02-01] MEDS: SYMBICORT 160-4.5 MCG INHALER INHALATION SCH (15:46)
[2025-02-01] MEDS ORDERED: IPRATROPIUM-ALBUTEROL 3 ML NEB INHALATION SCH (16:00)
[2025-02-01] MEDS: FUROSEMIDE 40 MG TAB PO SCH (16:16)
[2025-02-01] MEDS: INSULIN LISPRO (HumaLOG) 100 UNIT/ML 10 mL VL SQ SCH (18:43)
[2025-02-01 19:26] LABS: Influenza A Not Detected (Not Detectd); Influenza B Not Detected (Not Detectd); RSV Not Detected (Not Detectd)
[2025-02-01 19:57] LABS: Glucose,Whole Blood 239 mg/dL (70-110)
[2025-02-02 05:56] LABS: Glucose,Whole Blood 129 mg/dL (70-110)
[2025-02-02 07:13] LABS: African American GFR (CKD) 23 (>60 ml/min/1.73 sqM); Anion Gap 12 mmol/L; Blood Urea Nitrogen 36 mg/dL (9-20); Calcium 9.1 mg/dL (8.4-10.2); Carbon Dioxide 20 mmol/L (22-30); Chloride 106 mmol/L (98-107); Glucose 117 mg/dL (74-99); Magnesium 1.4 mg/dL (1.6-2.3); Non-African American GFR(CKD) 19 (>60 ml/min/1.73 sqM); Potassium 4.3 mmol/L (3.5-5.1); Sodium 138 mmol/L (137-145)
[2025-02-02] MEDS: TIOTROPIUM 2.5 MCG INHALER INHALATION SCH (08:00)
[2025-02-02 11:54] LABS: Glucose,Whole Blood 213 mg/dL (70-110)
--- NOTE | 2025-02-02 12:16 | P.PN ---
Subjective Progress Note Date: 02/02/25 H&P Date: 02/01/25 This is an 85-year-old gentleman with past medical history significant for atrial fibrillation, CAD, MS, gastroesophageal reflux disease, hypertension, hyperlipidemia, prostate disorder, hypothyroidism, former nicotine dependence, obesity and multiple other medical issues presented to the ER with complaints of progressive shortness of breath accompanied by productive cough with clear to yellow sputum x 2 days. Reports increased abdominal girth and mild ankle edema. denies nausea, vomiting and diarrhea . Denies abdominal pain. Denies chest pain, palpitations or shortness of breath. Echo in 2019 reported EF between 20 and 25%. Chest x-ray reported mild cardiomegaly with small bilateral pleural effusions, no suspicious focal airspace opacity or pneumothorax, findings consistent with CHF exacerbation. EKG reporting atrial fibrillation. Maintaining O2 sats in the 90s on room air. Afebrile, normal WBC, hemoglobin 9.2, platelets 296, INR 1.3 sodium 141, potassium 4.5, bicarb 19, BUN 33, creatinine 2.3increased to 2.73, baseline creatinine 1.4 documented in 2021, glucose 119, hemoglobin A1c 7.6. Magnesium 0.9 on admission, supplemented, repeat level 1.3. proBNP 8990. IVP Lasix initiated in the ER. 02/02/2025 maintained on nebulized bronchodilators, Symbicort, Spiriva. Yesterday IV push Lasix transitioned to oral as per cardiology. Echo results pending. breathing easier, coughing has subsided. Denies chest pain, palpitations or shortness of breath. Maintaining O2 sats in the mid 90s on room air. Afebrile. Renal ultrasound reported moderate right greater than left hydronephrosis, abnormally distended bladder. Right kidney , lateral border, thin-walled cyst measuring 3.8 x 3.9 x 2.6 cm. Left kidney lateral border, thin-walled cyst measuring 4.9 x 4.3 x 3.7 cm. Bilateral jets, only right jets seen. Bladder scannned during the night for a thousand, straight cath for 1500. this morning for 980, straight cathed for 1000ml. Gorman catheter to be inserted. Bicarb 20, BUN 36, creatinine 2.79. Blood sugars better controlled. Magnesium supplemented yesterday, 1.4, resupplementation ordered. Objective - Vital Signs Vital signs: Vital Signs Temp 97.7 F 02/02/25 09:07 Pulse 102 H 02/02/25 09:07 Resp 20 02/02/25 09:07 BP 137/71 02/02/25 09:07 Pulse Ox 94 L 02/02/25 09:07 FiO2 Intake & Output 02/01/25 02/02/25 02/02/25 18:59 06:59 18:59 Intake Total 840 20 120 Output Total 1500 1000 Balance 840 -1480 -880 Weight 93.8 kg 93.5 kg Intake: IV 20 20 Invasive Line 2 20 20 Intake, IV Titration 100 Amount Magnesium Sulfate-D5w Pmx 100 1 gm In Dextrose/Water 1 100ml.bag @ 100 mls/hr IVPB ONCE ONE Rx#: [id number] Oral 720 120 Output: Urine 1500 1000 Straight 1500 1000 Other: Voiding Method Toilet Toilet Urinal Urinal Diaper Diaper Incontinent Incontinent # Voids 2 0 0 # Bowel Movements 0 - Exam PHYSICAL EXAM: VITAL SIGNS: [Reviewed] GENERAL: alert and oriented x 3, no acute distress SLEETMUTE. HEENT: Normocephalic, atraumatic ,conjunctivae normal. eyes normal. Sclera anicteric. NECK: Supple, no JVD. CARDIOVASCULAR: S1, S2, irregular rate and rhythm. Systolic murmur RESPIRATION: Unlabored, equal air entry, diminished with less expiratory wheeze today ABDOMEN: Soft, distended, nontender . No guarding.+BS. LEGS: Mild lower extremity edema, no calf tenderness. Peripheral pulses intact. NERVOUS SYSTEM: Cranial N 2-12 grossly normal. No focal deficits. Skin: Warm and dry, no rash - Labs CBC & Chem 7: 02/01/25 07:12 02/02/25 06:00 Labs: Abnormal Lab Results - Last 24 Hours (Table) 02/01/25 02/02/25 02/02/25 Range/Units 19:56 05:54 06:00 Carbon Dioxide 20 L (22-30) mmol/L BUN 36 H (9-20) mg/dL Creatinine 2.79 H (0.66-1.25) mg/dL Glucose 117 H (74-99) mg/dL POC Glucose (mg/dL) 239 H 129 H (70-110) mg/dL Magnesium 1.4 L (1.6-2.3) mg/dL Assessment and Plan Assessment: Acute CHF exacerbation, systolic dysfunction Hypomagnesemia Acute kidney injury Metabolic acidosis secondary to the above Bilateral hydronephrosis ,moderate right greater than left, abnormally distended bladder Acute urinary retention, requiring Gorman catheter Diabetes mellitus, hemoglobin A1c 7.6 Chronic renal failure, stage IIIa, GFR 20, baseline 1.4, suspect related to nephrosclerosis. Chronic atrial fibrillation, anticoagulated on Eliquis CAD, history of MS Moderate to severe aortic regurgitation Mild to moderate mitral and tricuspid regurgitation Moderate pulmonary hypertension Hypertension Hyperlipidemia Hypothyroidism Benign prostatic hypertrophy Obesity, BMI 31 COPD Prior nicotine dependence gait dyfs, uses cane Plan: Continue on current medication regime ,monitoring and symptomatic treatment. aggressive pulmonary toileting with nebulized bronchodilators, Symbicort/Spiriva.diuretics as per cardiology.repeat magnesium supplementation. SAGE thacker. PT/OT consulted. Urology consulted secondary to renal ultrasound reporting bilateral hydronephrosis, abnormally distended bladder, only right jet seen. Flomax ,Gorman catheter and urology consult initiated. UA with culture. The impression and plan of care has been dictated as directed. : I performed a history and examination of this patient, discussed the same with the dictator. I agree with the dictator's note ,documented as a scribe. Any additional findings or plans will be noted.
[2025-02-02] MEDS: MAGNESIUM SULFATE-D5W PMX 1 GM in DEXTROSE/WATER 1 100ML.BAG IVPB ONE (12:17)
[2025-02-02 14:10] LABS: Appearance,Urine Turbid (Clear); Bilirubin,Urine Negative (Negative); Blood,Urine Large (Negative); Color,Urine Light Red; Glucose,Urine (UA) Negative (Negative); Ketones,Urine Negative (Negative); Leukocyte Esterase,Urine Large (Negative); Mucus,Urine Many /hpf; Nitrite,Urine Negative (Negative); PH, Urine 5.5 (5.0-8.0); Protein,Urine 1+ (Negative); RBC,Urine >182 /hpf (0-5); Specific Gravity,Urine 1.012 (1.001-1.035); Urobilinogen,Urine <2.0 mg/dL (<2.0); WBC,Urine >182 /hpf (0-5)
[2025-02-02 14:12] VITALS: BMI 30.4
--- NOTE | 2025-02-02 14:23 | P.PN ---
Subjective Patient is seen for follow-up for acute kidney injury. No significant complaints today. Ultrasound showed bilateral hydronephrosis and significantly distended bladder. Straight cath was performed and 1500 mL of urine was obtained. Objective - Vital Signs Vital signs: Vital Signs Temp 97.7 F 02/02/25 09:07 Pulse 72 02/02/25 11:38 Resp 20 02/02/25 11:38 BP 135/80 02/02/25 11:38 Pulse Ox 96 02/02/25 11:38 FiO2 Intake & Output 02/01/25 02/02/25 02/02/25 18:59 06:59 18:59 Intake Total 840 20 120 Output Total 1500 2100 Balance 840 -1480 -1979 Weight 93.8 kg 93.5 kg 93.5 kg Intake: IV 20 20 Invasive Line 2 20 20 Intake, IV Titration 100 Amount Magnesium Sulfate-D5w Pmx 100 1 gm In Dextrose/Water 1 100ml.bag @ 100 mls/hr IVPB ONCE ONE Rx#: [id number] Oral 720 120 Output: Urine 1500 2100 Straight 1500 1000 Other: Voiding Method Toilet Toilet Toilet Urinal Urinal Urinal Diaper Diaper Diaper Incontinent Incontinent Incontinent # Voids 2 0 0 # Bowel Movements 0 - Exam Patient is awake, comfortable, no acute distress Examination of the heart S1 and S2 Examination of the lungs bilateral breath sounds are heard Abdomen is soft nontender Examination lower extremities shows trace edema [employer] exam grossly intact - Labs CBC & Chem 7: 02/01/25 07:12 02/02/25 06:00 Labs: Abnormal Lab Results - Last 24 Hours (Table) 02/01/25 02/02/25 02/02/25 Range/Units 19:56 05:54 06:00 Carbon Dioxide 20 L (22-30) mmol/L BUN 36 H (9-20) mg/dL Creatinine 2.79 H (0.66-1.25) mg/dL Glucose 117 H (74-99) mg/dL POC Glucose (mg/dL) 239 H 129 H (70-110) mg/dL Magnesium 1.4 L (1.6-2.3) mg/dL Urine Protein (Negative) Urine Blood (Negative) Ur Leukocyte Esterase (Negative) Urine RBC (0-5) /hpf Urine WBC (0-5) /hpf Urine Mucus (None) /hpf 02/02/25 02/02/25 Range/Units 11:53 13:29 Carbon Dioxide (22-30) mmol/L BUN (9-20) mg/dL Creatinine (0.66-1.25) mg/dL Glucose (74-99) mg/dL POC Glucose (mg/dL) 213 H (70-110) mg/dL Magnesium (1.6-2.3) mg/dL Urine Protein 1+ H (Negative) Urine Blood Large H (Negative) Ur Leukocyte Esterase Large H (Negative) Urine RBC >182 H (0-5) /hpf Urine WBC >182 H (0-5) /hpf Urine Mucus Many H (None) /hpf Assessment and Plan Assessment: 1. Acute kidney injury, cardiorenal and from urine retention. Ultrasound shows bilateral hydronephrosis with significantly distended bladder. Gorman catheter will be placed. 2. Chronic kidney disease stage IIIa with previous creatinine 1.4 in 2021. Etiology is likely nephrosclerosis. Previous UA showed trace proteinuria in 2021. 3. Nongap metabolic acidosis associated with acute kidney injury, improved 4. Hypomagnesemia secondary to proton pump inhibitors, status post replacement 5. Acute CHF exacerbation with decreased ejection fraction of 40% noted on echocardiogram on 11/07/2024 6. Urine retention with bilateral hydronephrosis Plan: Continue with the current dose of Lasix Place Gorman catheter Consult urology Repeat labs in a.m.
--- NOTE | 2025-02-02 15:45 | P.PN ---
Subjective Progress Note Date: 02/02/25 Reason for Consult (text): Acute pulmonary edema History of present illness: This is an 85-year-old male patient of Dr. Ehsan Nguyễn with past medical history of permanent atrial fibrillation, hypertension, dyslipidemia, mitral and aortic regurgitation. We have been asked to evaluate the patient for acute pulmonary edema. Patient gives history of having significant cough for the past 2 nights and unable to sleep. He states his son who is his primary caregiver has also had a cough. He states the cough is improved at this time. Prior to 2 days ago he was feeling well. He denies lightheadedness or dizziness. No chest pain or chest pressure. He has been started on IV Lasix and states he has been put in a diaper and he does not know how much he is urinating. Patient noted to be wheezing but denies history of COPD or asthma. Blood pressure 131/75, heart rate 90, pulse ox 94% on room air. Patient is status post 1 dose of IV Lasix 60 mg followed by 40 mg every 8 hours. Magnesium has been replaced. -EKG: Atrial fibrillation with left bundle branch block. -Chest x-ray: Findings suggest CHF. -Laboratory studies: WBC 9.2, hemoglobin 9.2. INR 1.3. BUN 33 creatinine 2.73. Troponin 0.034. proBNP 8990. Magnesium 0.9 and repeat 1.3. Hemoglobin A1c 7.6 -Home cardiac medications: Eliquis 5 mg twice daily, aspirin 81 mg daily, metoprolol succinate 25 mg daily, Klor-Con 10 milliequivalents daily, simvastatin 40 mg daily, spironolactone 25 mg daily, patient is also on levothyroxine and Cardura. -Echocardiogram performed in the office on 11/07/2024 revealed EF 40%. Severe left ventricular hypertrophy. Moderate to severe aortic regurgitation. Aortic valve is calcified. Ascending aorta is enlarged. Mild to moderate mitral regurgitation. Mitral valve is calcified. Mild to moderate tricuspid regurgitation. PASP 46 mmHg. 02/02 Patient seen and examined on the cardiac stepdown unit. Patient was found to have urinary retention and a Gorman catheter was placed. He states he feels he is slowly getting better. Repeat blood work reveals sodium 138, potassium 4.3, BUN 36 and creatinine 2.79. Blood pressure 135/80, heart rate 72, pulse ox 96% on room air. Patient has no lower extremity edema. He is maintained on oral Lasix. Physical examination: Gen: This is an 85-year-old male in no acute distress VS: reviewed HEENT: Head is atraumatic, normocephalic. Pupils equal, round. Sclerae is anicteric. NECK: Supple. No JVD. LUNGS: Expiratory wheeze. Few crackles in the bases most likely due to atelectasis. No intercostal retractions. HEART: Irregular rate and rhythm. No murmur. ABDOMEN: Soft No tenderness. EXTREMITIES: No pedal edema. No calf tenderness. NEUROLOGICAL: Patient is awake, alert and oriented x3. Assessment: Acute dyspnea most likely due to pulmonary etiology with component of acute on chronic systolic heart failure with known EF of 40% Acute kidney injury Hypomagnesemia Permanent atrial fibrillation on Eliquis currently rate controlled Hypertension Dyslipidemia Valvular heart disease with moderate to severe aortic regurgitation, mild to moderate mitral regurgitation, mild to moderate tricuspid regurgitation Moderate pulmonary hypertension, PASP 46 Plan: Continue patient's home cardiac medications Continue Lasix to 40 mg twice daily oral Further recommendations to follow based upon clinical course Nurse practitioner note has been reviewed, I agree with documented findings and plan of care. Patient was seen and examined. Objective - Vital Signs Vital signs: Vital Signs Temp 97.7 F 02/02/25 09:07 Pulse 72 02/02/25 11:38 Resp 20 02/02/25 11:38 BP 135/80 02/02/25 11:38 Pulse Ox 96 02/02/25 11:38 FiO2 Intake & Output 02/01/25 02/02/25 02/02/25 18:59 06:59 18:59 Intake Total 840 20 120 Output Total 1500 2100 Balance 840 1480 -1980 Weight 93.8 kg 93.5 kg Intake: IV 20 20 Invasive Line 2 20 20 Intake, IV Titration 100 Amount Magnesium Sulfate-D5w Pmx 100 1 gm In Dextrose/Water 1 100ml.bag @ 100 mls/hr IVPB ONCE ONE Rx#: [id number] Oral 720 120 Output: Urine 1500 2100 Straight 1500 1000 Other: Voiding Method Toilet Toilet Toilet Urinal Urinal Urinal Diaper Diaper Diaper Incontinent Incontinent Incontinent # Voids 2 0 0 # Bowel Movements 0 - Labs CBC & Chem 7: 02/01/25 07:12 02/02/25 06:00 Labs: Abnormal Lab Results - Last 24 Hours (Table) 02/01/25 02/02/25 02/02/25 Range/Units 19:56 05:54 06:00 Carbon Dioxide 20 L (22-30) mmol/L BUN 36 H (9-20) mg/dL Creatinine 2.79 H (0.66-1.25) mg/dL Glucose 117 H (74-99) mg/dL POC Glucose (mg/dL) 239 H 129 H (70-110) mg/dL Magnesium 1.4 L (1.6-2.3) mg/dL 02/02/25 Range/Units 11:53 Carbon Dioxide (22-30) mmol/L BUN (9-20) mg/dL Creatinine (0.66-1.25) mg/dL Glucose (74-99) mg/dL POC Glucose (mg/dL) 213 H (70-110) mg/dL Magnesium (1.6-2.3) mg/dL
[2025-02-02 17:04] LABS: Glucose,Whole Blood 180 mg/dL (70-110)
[2025-02-02] MEDS: TAMSULOSIN 0.4 MG CAP.ER.24H PO SCH (17:21)
--- NOTE | 2025-02-02 17:57 | CA ---
Transthoracic Echo Report Name: Dante Nielsen Age: 85 Gender: M : 1940 Exam Date: 02/01/2025 15:31 Exam Location: [facility] Ht (in): 69 Wt (lb): 206 Ordering Physician: Vania Aponte Attending/Referring Phys: Prepress Technician Olga Alfaro RDCS Procedure CPT: Indications: lv fx, Cardiomyopathy, unspecified Cardiac Hx: Technical Quality: Technically difficult study Contrast 1: Definity Total Dose (mL): 5 Contrast 2: Total Dose (mL): MEASUREMENTS (Male / Female) Normal Values 2D ECHO LV Diastolic Diameter PLAX 5.9 cm 4.2 - 5.9 / 3.9 - 5.3 cm LV Systolic Diameter PLAX 4.7 cm IVS Diastolic Thickness 1.1 cm 0.6 - 1.0 / 0.6 - 0.9 cm LVPW Diastolic Thickness 1.5 cm 0.6 - 1.0 / 0.6 - 0.9 cm LV Relative Wall Thickness 0.4 LVOT Diameter 2.3 cm Aortic Root Diameter 3.6 cm Ascending Aorta Diameter 3.7 cm DOPPLER AV Peak Velocity 157.9 cm/s AV Peak Gradient 10.0 mmHg AV Mean Velocity 80.1 cm/s AV Mean Gradient 3.4 mmHg AV Velocity Time Integral 22.6 cm LVOT Peak Velocity 89.8 cm/s LVOT Peak Gradient 3.2 mmHg LVOT Velocity Time Integral 12.9 cm LVOT Stroke Volume 52.1 cm??? LVOT Stroke Volume Index 24.9 ml/m??? LVOT Cardiac Index 2074.9 cm???/min???m??? AV Area Cont Eq vti 2.3 cm??? AV Area Cont Eq pk 2.3 cm??? TV Peak Velocity 331.1 cm/s Right Atrial Pressure 20.0 mmHg PV Peak Velocity 94.0 cm/s PV Peak Gradient 3.5 mmHg FINDINGS Left Ventricle Left ventricular ejection fraction is estimated at 15-20 %. Left ventricular dilatation. Unable to measure biplanes due to rhythm. Severely reduced global left ventricular systolic function with regional variability. Right Ventricle Right ventricular dilatation. Moderately reduced right ventricular global systolic function. Severe pulmonary hypertension. Right ventricular systolic pressure estimated at 64 mm hg. Right Atrium Severe right atrial dilatation. Left Atrium Severely increased left atrial area. Mitral Valve Mitral valve thickened. Mitral annular calcification. No evidence for mitral valve prolapse. No mitral stenosis. Moderate eccentric mitral regurgitation. Aortic Valve Trileaflet aortic valve. Aortic valve sclerosis. No aortic stenosis. Mild aortic regurgitation. Tricuspid Valve Structurally normal tricuspid valve. No tricuspid stenosis. Moderate tricuspid regurgitation. Pulmonic Valve Structurally normal pulmonic valve. No pulmonic stenosis. Mild pulmonic regurgitation. Pericardium No pericardial effusion. Aorta Normal size aortic root and proximal ascending aorta. CONCLUSIONS LVEF 15 to 20% Moderate septal hypertrophy. Hypokinetic inferior inferolateral wall. Dilated LV cavity with severely systolic function. Severe biatrial dilatation Dilated RV with reduced systolic function. Severe pulmonary hypertension. RVSP 60 Moderate eccentric mitral regurgitation Moderate tricuspid regurgitation Previewed by: Dr Mendoza Tapia (Electronically Signed) Final Date: 02 February 2025 17:56
--- NOTE | 2025-02-02 18:21 | P.GSCN ---
History of Present Illness Consult date: 02/02/25 Reason for Consult: Urinary retention, bilateral hydronephrosis History of present illness: This is an 85-year-old male admitted to the hospital with pulmonary edema. Urologist consulted for finding of a distended bladder with bilateral hydro nephrosis. Patient indicated at baseline he is incontinent of urine, and his bladder is being managed with a diaper. Denies any previous history of dysuria or gross hematuria, denies any previous urological surgeries. No history of urinary retention, recurrent UTIs or kidney stones. He underwent a renal bladder ultrasound that showed evidence of bilateral hydronephrosis and a quite distended bladder, Gorman catheter was placed with a return of 1.1 L of urine. He was unaware of his distended bladder. His creatinine is at 2.79, prior to this hospital admission last creatinine was 1.4 that was back in 2021. His catheter is draining hematuric urine. He did have a CT abdomen and pelvis back in 2018 which showed 150 g prostate. He is on Cardura at home for his BPH Review of Systems - Constitutional Denies fever, Denies weight loss - Cardiovascular Denies chest pain, Denies shortness of breath - Respiratory Denies cough, Denies 7 - Gastrointestinal Reports abdominal pain, Denies nausea, Denies vomiting - Genitourinary Reports hematuria, Reports urinary retention - Neurological Denies headaches, Denies syncope Past Medical History Past Medical History: Atrial Fibrillation, Coronary Artery Disease (CAD), GERD/Reflux, Hyperlipidemia, Hypertension, Myocardial Infarction ([place]), Prostate Disorder, Thyroid Disorder Additional Past Medical History / Comment(s): Enlarged Prostate, States [place] 30 years ago. Last Myocardial Infarction Date:: 1987 History of Any Multi-Drug Resistant Organisms: None Reported Past Surgical History: Heart Catheterization, Hernia Repair, Orthopedic Surgery Additional Past Surgical History / Comment(s): skin cancer, L eye cataract, R knee replacement Past Anesthesia/Blood Transfusion Reactions: No Reported Reaction Smoking Status: Former smoker - Past Family History Mother Family Medical History: No Reported History Sister(s) Family Medical History: Cancer Additional Family Medical History / Comment(s): Ovarian Brother(s) Family Medical History: Cancer Additional Family Medical History / Comment(s): Non-Hodgkins Lymphoma Medications and Allergies Home Medications Medication Instructions Recorded Confirmed Type Simvastatin [Zocor] 40 mg PO DAILY 02/09/14 01/31/25 History Omeprazole [PriLOSEC] 20 mg PO BID 09/12/14 01/31/25 History Apixaban [Eliquis] 5 mg PO BID 01/16/18 01/31/25 History Levothyroxine Sodium [Synthroid] 88 mcg PO DAILY 07/13/19 01/31/25 History Metoprolol Succinate (ER) [Toprol 25 mg PO DAILY 07/13/19 01/31/25 History XL] Spironolactone [Aldactone] 25 mg PO DAILY #30 tab 07/15/19 01/31/25 Rx Doxazosin [Cardura] 2 mg PO DAILY 06/09/22 01/31/25 History Potassium Chloride [Klor-Con 10 ER] 10 meq PO DAILY 06/09/22 01/31/25 History busPIRone HCL 10 mg PO TID PRN 06/09/22 01/31/25 History traZODone HCL [Desyrel] 50 - 100 mg PO HS 06/09/22 01/31/25 History Aspirin EC [Ecotrin Low Dose] 81 mg PO DAILY 01/31/25 01/31/25 History Allergies Allergy/AdvReac Type Severity Reaction Status Date / Time silicone Allergy Rash/Hives Verified 01/31/25 14:18 hydromorphone HCl AdvReac Nausea & Verified 01/31/25 14:18 [From Dilaudid] Vomiting Milk Containing Products AdvReac Diarrhea Verified 01/31/25 14:18 (Dairy) [Milk Containing Products] powder from latex gloves Allergy Rash/Hives Uncoded 01/31/25 11:51 Surgical - Exam Vital Signs Temp Pulse Resp BP Pulse Ox 97.2 F L 95 18 138/80 97 01/31/25 11:40 01/31/25 11:40 01/31/25 11:40 01/31/25 11:40 01/31/25 11:40 - General no distress, no pain - Eyes normal ocular movement, no pale - ENT normal nares, normal mucosa - Respiratory normal expansion, normal respiratory effort - Abdomen Abdomen: soft, non tender, no distended Results - Labs 02/01/25 07:12 02/02/25 06:00 Abnormal Lab Results - Last 24 Hours (Table) 02/01/25 02/02/25 02/02/25 Range/Units 19:56 05:54 06:00 Carbon Dioxide 20 L (22-30) mmol/L BUN 36 H (9-20) mg/dL Creatinine 2.79 H (0.66-1.25) mg/dL Glucose 117 H (74-99) mg/dL POC Glucose (mg/dL) 239 H 129 H (70-110) mg/dL Magnesium 1.4 L (1.6-2.3) mg/dL Urine Protein (Negative) Urine Blood (Negative) Ur Leukocyte Esterase (Negative) Urine RBC (0-5) /hpf Urine WBC (0-5) /hpf Urine Mucus (None) /hpf 02/02/25 02/02/25 02/02/25 Range/Units 11:53 13:29 17:03 Carbon Dioxide (22-30) mmol/L BUN (9-20) mg/dL Creatinine (0.66-1.25) mg/dL Glucose (74-99) mg/dL POC Glucose (mg/dL) 213 H 180 H (70-110) mg/dL Magnesium (1.6-2.3) mg/dL Urine Protein 1+ H (Negative) Urine Blood Large H (Negative) Ur Leukocyte Esterase Large H (Negative) Urine RBC >182 H (0-5) /hpf Urine WBC >182 H (0-5) /hpf Urine Mucus Many H (None) /hpf Diabetes panel 02/02/25 Range/Units 06:00 Sodium 138 (137-145) mmol/L Potassium 4.3 (3.5-5.1) mmol/L Chloride 106 (98-107) mmol/L Carbon Dioxide 20 L (22-30) mmol/L BUN 36 H (9-20) mg/dL Creatinine 2.79 H (0.66-1.25) mg/dL Glucose 117 H (74-99) mg/dL Calcium 9.1 (8.4-10.2) mg/dL Calcium panel 02/02/25 Range/Units 06:00 Calcium 9.1 (8.4-10.2) mg/dL Pituitary panel 02/02/25 Range/Units 06:00 Sodium 138 (137-145) mmol/L Potassium 4.3 (3.5-5.1) mmol/L Chloride 106 (98-107) mmol/L Carbon Dioxide 20 L (22-30) mmol/L BUN 36 H (9-20) mg/dL Creatinine 2.79 H (0.66-1.25) mg/dL Glucose 117 H (74-99) mg/dL Calcium 9.1 (8.4-10.2) mg/dL Adrenal panel 02/02/25 Range/Units 06:00 Sodium 138 (137-145) mmol/L Potassium 4.3 (3.5-5.1) mmol/L Chloride 106 (98-107) mmol/L Carbon Dioxide 20 L (22-30) mmol/L BUN 36 H (9-20) mg/dL Creatinine 2.79 H (0.66-1.25) mg/dL Glucose 117 H (74-99) mg/dL Calcium 9.1 (8.4-10.2) mg/dL Assessment and Plan Assessment: 85-year-old male with history of urinary retention, causing bilateral hydronephrosis, known history of BPH and greater than 150 g prostate. He is incontinent of urine at baseline. Most likely he has overflow incontinence at baseline. Discussed with him given the bilateral hydro in the retention unawareness I do recommend proceeding with an outpatient urodynamics prior to catheter removal He can be discharged with the Gorman catheter from urology standpoint, will arrange for outpatient urodynamics in 1 to 2 weeks
[2025-02-02 20:12] LABS: Glucose,Whole Blood 158 mg/dL (70-110)
[2025-02-02 22:04] LABS: HCT 32.3 % (39.6-50.0); HGB 10.7 g/dL (13.0-17.0); MCH 31.2 pg (27.0-32.0); MCHC 33.1 g/dL (32.0-37.0); MCV 94.2 fL (80.0-97.0); Mean Platelet Volume 9.8 fL (9.5-12.2); Platelet Count 345 10*3/uL (140-440); RBC 3.43 10*6/uL (4.40-5.60); RDW 14.4 % (11.5-14.5); WBC 13.16 10*3/uL (4.50-10.00)
[2025-02-03 06:01] LABS: Glucose,Whole Blood 160 mg/dL (70-110)
[2025-02-03 06:57] LABS: Basophils # (A) 0.06 10*3/uL (0.00-0.10); Basophils % (A) 0.4 %; HCT 32.9 % (39.6-50.0); Lymphocytes # (A) 1.54 10*3/uL (0.90-5.00); Lymphocytes % (A) 10.3 %; MCH 31.3 pg (27.0-32.0); MCHC 33.4 g/dL (32.0-37.0); MCV 93.7 fL (80.0-97.0); Monocytes # (A) 1.34 10*3/uL (0.20-1.00); Monocytes % (A) 8.9 %; Neutrophils # (A) 11.66 10*3/uL (1.80-7.70); Neutrophils % (A) 77.8 %; Platelet Count 357 10*3/uL (140-440); RBC 3.51 10*6/uL (4.40-5.60); RDW 14.1 % (11.5-14.5); WBC 14.99 10*3/uL (4.50-10.00)
[2025-02-03 07:13] LABS: African American GFR (CKD) 29 (>60 ml/min/1.73 sqM); Anion Gap 15 mmol/L; Blood Urea Nitrogen 35 mg/dL (9-20); Calcium 9.3 mg/dL (8.4-10.2); Carbon Dioxide 22 mmol/L (22-30); Chloride 100 mmol/L (98-107); Glucose 145 mg/dL (74-99); Non-African American GFR(CKD) 25 (>60 ml/min/1.73 sqM); Potassium 4.3 mmol/L (3.5-5.1); Sodium 137 mmol/L (137-145)
[2025-02-03 07:21] LABS: NT-Pro-B-Type Natriuretic Pept 11000 pg/mL
[2025-02-03 07:55] LABS: HCT 32.1 % (39.6-50.0); HGB 10.5 g/dL (13.0-17.0); MCH 30.7 pg (27.0-32.0); MCHC 32.7 g/dL (32.0-37.0); MCV 93.9 fL (80.0-97.0); Mean Platelet Volume 9.7 fL (9.5-12.2); Platelet Count 354 10*3/uL (140-440); RBC 3.42 10*6/uL (4.40-5.60); RDW 14.2 % (11.5-14.5)
--- NOTE | 2025-02-03 09:02 | P.PN ---
Subjective Progress Note Date: 02/03/25 Reason for Consult (text): Acute pulmonary edema History of present illness: This is an 85-year-old male patient of Dr. Ehsan Nguyễn with past medical history of permanent atrial fibrillation, hypertension, dyslipidemia, mitral and aortic regurgitation. We have been asked to evaluate the patient for acute pulmonary edema. Patient gives history of having significant cough for the past 2 nights and unable to sleep. He states his son who is his primary caregiver has also had a cough. He states the cough is improved at this time. Prior to 2 days ago he was feeling well. He denies lightheadedness or dizziness. No chest pain or chest pressure. He has been started on IV Lasix and states he has been put in a diaper and he does not know how much he is urinating. Patient noted to be wheezing but denies history of COPD or asthma. Blood pressure 131/75, heart rate 90, pulse ox 94% on room air. Patient is status post 1 dose of IV Lasix 60 mg followed by 40 mg every 8 hours. Magnesium has been replaced. -EKG: Atrial fibrillation with left bundle branch block. -Chest x-ray: Findings suggest CHF. -Laboratory studies: WBC 9.2, hemoglobin 9.2. INR 1.3. BUN 33 creatinine 2.73. Troponin 0.034. proBNP 8990. Magnesium 0.9 and repeat 1.3. Hemoglobin A1c 7.6 -Home cardiac medications: Eliquis 5 mg twice daily, aspirin 81 mg daily, metoprolol succinate 25 mg daily, Klor-Con 10 milliequivalents daily, simvastatin 40 mg daily, spironolactone 25 mg daily, patient is also on levothyroxine and Cardura. -Echocardiogram performed in the office on 11/07/2024 revealed EF 40%. Severe left ventricular hypertrophy. Moderate to severe aortic regurgitation. Aortic valve is calcified. Ascending aorta is enlarged. Mild to moderate mitral regurgitation. Mitral valve is calcified. Mild to moderate tricuspid regurgitation. PASP 46 mmHg. 02/02 Patient seen and examined on the cardiac stepdown unit. Patient was found to have urinary retention and a Gorman catheter was placed. He states he feels he is slowly getting better. Repeat blood work reveals sodium 138, potassium 4.3, BUN 36 and creatinine 2.79. Blood pressure 135/80, heart rate 72, pulse ox 96% on room air. Patient has no lower extremity edema. He is maintained on oral Lasix. 02/03 Patient seen and examined. Patient states his breathing is okay. He looks very comfortable. He is found today sitting up in a chair. He has been on oral Lasix. Gorman catheter was placed yesterday for urinary retention. Blood pressure readings high this morning at 153/91, heart rate 99, pulse ox 96% on room air. Repeat blood work reveals WBC 13.7, hemoglobin 10.5. Sodium 137, potassium 4.3, BUN 35 creatinine 2.28. Physical examination: Gen: This is an 85-year-old male in no acute distress VS: reviewed HEENT: Head is atraumatic, normocephalic. Pupils equal, round. Sclerae is ani cteric. NECK: Supple. No JVD. LUNGS: Expiratory wheeze. Few crackles in the bases most likely due to atelectasis. No intercostal retractions. HEART: Irregular rate and rhythm. No murmur. ABDOMEN: Soft No tenderness. EXTREMITIES: No pedal edema. No calf tenderness. NEUROLOGICAL: Patient is awake, alert and oriented x3. Assessment: Acute dyspnea most likely due to pulmonary etiology with component of acute on chronic systolic heart failure with known EF of 40% Acute kidney injury Hypomagnesemia Permanent atrial fibrillation on Eliquis currently rate controlled Hypertension Dyslipidemia Valvular heart disease with moderate to severe aortic regurgitation, mild to moderate mitral regurgitation, mild to moderate tricuspid regurgitation Moderate pulmonary hypertension, PASP 46 Plan: Continue patient on Eliquis, aspirin, atorvastatin Increase metoprolol succinate to 50 mg daily Continue Lasix to 40 mg twice daily oral Further recommendations to follow based upon clinical course Nurse practitioner note has been reviewed, I agree with documented findings and plan of care. Patient was seen and examined. Objective - Vital Signs Vital signs: Vital Signs Temp 98.4 F 02/03/25 04:00 Pulse 99 02/03/25 04:00 Resp 18 02/03/25 04:00 BP 153/91 02/03/25 04:00 Pulse Ox 96 02/03/25 04:00 FiO2 Intake & Output 02/02/25 02/03/25 02/03/25 18:59 06:59 18:59 Intake Total 480 Output Total 3100 3075 Balance -2620 -3075 Weight 93.5 kg 94 kg Intake: Oral 480 Output: Urine 3100 3075 Straight 1000 Other: Voiding Method Indwelling Catheter Indwelling Catheter # Voids 0 # Bowel Movements 0 - Labs CBC & Chem 7: 02/03/25 07:30 02/03/25 06:40 Labs: Abnormal Lab Results - Last 24 Hours (Table) 02/02/25 02/02/25 02/02/25 Range/Units 11:53 13:29 17:03 WBC (4.50-10.00) 10*3/uL RBC (4.40-5.60) 10*6/uL Hgb (13.0-17.0) g/dL Hct (39.6-50.0) % Immature Gran # (0.00-0.04) 10*3/uL Neutrophils # (1.80-7.70) 10*3/uL Monocytes # (0.20-1.00) 10*3/uL BUN (9-20) mg/dL Creatinine (0.66-1.25) mg/dL Glucose (74-99) mg/dL POC Glucose (mg/dL) 213 H 180 H (70-110) mg/dL Urine Protein 1+ H (Negative) Urine Blood Large H (Negative) Ur Leukocyte Esterase Large H (Negative) Urine RBC >182 H (0-5) /hpf Urine WBC >182 H (0-5) /hpf Urine Mucus Many H (None) /hpf 02/02/25 02/02/25 02/03/25 Range/Units 20:04 21:41 06:00 WBC 13.16 H (4.50-10.00) 10*3/uL RBC 3.43 L (4.40-5.60) 10*6/uL Hgb 10.7 L (13.0-17.0) g/dL Hct 32.3 L (39.6-50.0) % Immature Gran # (0.00-0.04) 10*3/uL Neutrophils # (1.80-7.70) 10*3/uL Monocytes # (0.20-1.00) 10*3/uL BUN (9-20) mg/dL Creatinine (0.66-1.25) mg/dL Glucose (74-99) mg/dL POC Glucose (mg/dL) 158 H 160 H (70-110) mg/dL Urine Protein (Negative) Urine Blood (Negative) Ur Leukocyte Esterase (Negative) Urine RBC (0-5) /hpf Urine WBC (0-5) /hpf Urine Mucus (None) /hpf 02/03/25 02/03/25 02/03/25 Range/Units 06:40 06:40 07:30 WBC 14.99 H 13.70 H (4.50-10.00) 10*3/uL RBC 3.51 L 3.42 L (4.40-5.60) 10*6/uL Hgb 11.0 L 10.5 L (13.0-17.0) g/dL Hct 32.9 L 32.1 L (39.6-50.0) % Immature Gran # 0.09 H (0.00-0.04) 10*3/uL Neutrophils # 11.66 H (1.80-7.70) 10*3/uL Monocytes # 1.34 H (0.20-1.00) 10*3/uL BUN 35 H (9-20) mg/dL Creatinine 2.28 H (0.66-1.25) mg/dL Glucose 145 H (74-99) mg/dL POC Glucose (mg/dL) (70-110) mg/dL Urine Protein (Negative) Urine Blood (Negative) Ur Leukocyte Esterase (Negative) Urine RBC (0-5) /hpf Urine WBC (0-5) /hpf Urine Mucus (None) /hpf
[2025-02-03] MEDS: METOPROLOL SUCCINATE (ER) 50 MG TAB.ER.24H PO SCH (09:32)
[2025-02-03 09:36] VITALS: RESP 16; TEMP 97.9
[2025-02-03 11:41] LABS: Glucose,Whole Blood 251 mg/dL (70-110)
--- NOTE | 2025-02-03 12:38 | P.PN ---
Subjective Progress Note Date: 02/03/25 No acute overnight event, his creatinine is down to 2.28. Objective - Vital Signs Vital signs: Vital Signs Temp 97.9 F 02/03/25 08:00 Pulse 88 02/03/25 09:21 Resp 16 02/03/25 08:00 BP 108/68 02/03/25 08:00 Pulse Ox 97 02/03/25 09:07 FiO2 Intake & Output 02/02/25 02/03/25 02/03/25 18:59 06:59 18:59 Intake Total 480 Output Total 3100 3075 800 Balance -2620 -3075 -800 Weight 93.5 kg 94 kg Intake: Oral 480 Output: Urine 3100 3075 800 Straight 1000 Other: Voiding Method Indwelling Catheter Indwelling Catheter Indwelling Catheter # Voids 0 # Bowel Movements 0 - Constitutional General appearance: Present: no acute distress - Labs CBC & Chem 7: 02/03/25 07:30 02/03/25 06:40 Labs: Abnormal Lab Results - Last 24 Hours (Table) 02/02/25 02/02/25 02/02/25 Range/Units 13:29 17:03 20:04 WBC (4.50-10.00) 10*3/uL RBC (4.40-5.60) 10*6/uL Hgb (13.0-17.0) g/dL Hct (39.6-50.0) % Immature Gran # (0.00-0.04) 10*3/uL Neutrophils # (1.80-7.70) 10*3/uL Monocytes # (0.20-1.00) 10*3/uL BUN (9-20) mg/dL Creatinine (0.66-1.25) mg/dL Glucose (74-99) mg/dL POC Glucose (mg/dL) 180 H 158 H (70-110) mg/dL Magnesium (1.6-2.3) mg/dL Urine Protein 1+ H (Negative) Urine Blood Large H (Negative) Ur Leukocyte Esterase Large H (Negative) Urine RBC >182 H (0-5) /hpf Urine WBC >182 H (0-5) /hpf Urine Mucus Many H (None) /hpf 02/02/25 02/03/25 02/03/25 Range/Units 21:41 06:00 06:40 WBC 13.16 H 14.99 H (4.50-10.00) 10*3/uL RBC 3.43 L 3.51 L (4.40-5.60) 10*6/uL Hgb 10.7 L 11.0 L (13.0-17.0) g/dL Hct 32.3 L 32.9 L (39.6-50.0) % Immature Gran # 0.09 H (0.00-0.04) 10*3/uL Neutrophils # 11.66 H (1.80-7.70) 10*3/uL Monocytes # 1.34 H (0.20-1.00) 10*3/uL BUN (9-20) mg/dL Creatinine (0.66-1.25) mg/dL Glucose (74-99) mg/dL POC Glucose (mg/dL) 160 H (70-110) mg/dL Magnesium (1.6-2.3) mg/dL Urine Protein (Negative) Urine Blood (Negative) Ur Leukocyte Esterase (Negative) Urine RBC (0-5) /hpf Urine WBC (0-5) /hpf Urine Mucus (None) /hpf 02/03/25 02/03/25 02/03/25 Range/Units 06:40 06:40 07:30 WBC 13.70 H (4.50-10.00) 10*3/uL RBC 3.42 L (4.40-5.60) 10*6/uL Hgb 10.5 L (13.0-17.0) g/dL Hct 32.1 L (39.6-50.0) % Immature Gran # (0.00-0.04) 10*3/uL Neutrophils # (1.80-7.70) 10*3/uL Monocytes # (0.20-1.00) 10*3/uL BUN 35 H (9-20) mg/dL Creatinine 2.28 H (0.66-1.25) mg/dL Glucose 145 H (74-99) mg/dL POC Glucose (mg/dL) (70-110) mg/dL Magnesium 1.3 L (1.6-2.3) mg/dL Urine Protein (Negative) Urine Blood (Negative) Ur Leukocyte Esterase (Negative) Urine RBC (0-5) /hpf Urine WBC (0-5) /hpf Urine Mucus (None) /hpf 02/03/25 Range/Units 11:40 WBC (4.50-10.00) 10*3/uL RBC (4.40-5.60) 10*6/uL Hgb (13.0-17.0) g/dL Hct (39.6-50.0) % Immature Gran # (0.00-0.04) 10*3/uL Neutrophils # (1.80-7.70) 10*3/uL Monocytes # (0.20-1.00) 10*3/uL BUN (9-20) mg/dL Creatinine (0.66-1.25) mg/dL Glucose (74-99) mg/dL POC Glucose (mg/dL) 251 H (70-110) mg/dL Magnesium (1.6-2.3) mg/dL Urine Protein (Negative) Urine Blood (Negative) Ur Leukocyte Esterase (Negative) Urine RBC (0-5) /hpf Urine WBC (0-5) /hpf Urine Mucus (None) /hpf Assessment and Plan Assessment: 85-year-old male with history of urinary retention, causing bilateral hydronephrosis, known history of BPH and greater than 150 g prostate. He is incontinent of urine at baseline. Most likely he has overflow incontinence at baseline. Discussed with him given the bilateral hydro in the retention unawareness I do recommend proceeding with an outpatient urodynamics prior to catheter removal He can be discharged with the Gorman catheter from urology standpoint, will arrange for outpatient urodynamics in 1 to 2 weeks
[2025-02-03 13:07] VITALS: BP 97/64
[2025-02-03] MEDS: MAGNESIUM SULFATE-D5W PMX 1 GM in DEXTROSE/WATER 1 100ML.BAG IVPB ONE (13:17)
[2025-02-03] MEDS ORDERED: DAPAGLIFLOZIN PROPANEDIOL 10 MG TABLET PO SCH (13:30)
--- NOTE | 2025-02-03 13:43 | P.DS ---
Providers Date of admission: 01/31/25 14:21 Expected date of discharge: 02/03/25 Attending physician: Dakota Stahl Consults: 01/31/25 14:18 Consult Physician Routine Consulting Provider: [facility] Consult Reason/Comments: pulmonary edema Do you want consulting provider notified?: Yes 01/31/25 15:13 Consult Physician Routine Consulting Provider: Laurence Donnelly Consult Reason/Comments: chf,acute renal failure Do you want consulting provider notified?: Yes 02/02/25 11:56 Consult Physician Routine Consulting Provider: Steffen Arita Consult Reason/Comments: Bilateral hydronephrosis Do you want consulting provider notified?: Yes Primary care physician: [facility] Course: Final Diagnosis: Acute CHF exacerbation, systolic dysfunction Hypomagnesemia Acute kidney injury Metabolic acidosis secondary to the above Bilateral hydronephrosis ,moderate right greater than left, abnormally distended bladder Acute urinary retention, requiring Gorman catheter Diabetes mellitus, hemoglobin A1c 7.6, Jardiance initiated Chronic renal failure, stage IIIa, GFR 20, baseline 1.4, suspect related to nephrosclerosis. Chronic atrial fibrillation, anticoagulated on Eliquis CAD, history of RI Moderate to severe aortic regurgitation Mild to moderate mitral and tricuspid regurgitation Moderate pulmonary hypertension Hypertension Hyperlipidemia Hypothyroidism Benign prostatic hypertrophy, greater than 150 g prostate as per urology Obesity, BMI 31 COPD Prior nicotine dependence [facility] course: This is an 85-year-old gentleman with past medical history significant for atrial fibrillation, CAD, RI, gastroesophageal reflux disease, hypertension, hyperlipidemia, prostate disorder, hypothyroidism, former nicotine dependence, obesity and multiple other medical issues presented to the ER with complaints of progressive shortness of breath accompanied by productive cough with clear to yellow sputum x 2 days. Reports increased abdominal girth and mild ankle edema. denies nausea, vomiting and diarrhea . Denies abdominal pain. Denies chest pain, palpitations or shortness of breath. Echo in 2019 reported EF between 20 and 25%. Chest x-ray reported mild cardiomegaly with small bilateral pleural effusions, no suspicious focal airspace opacity or pneumothorax, findings consistent with CHF exacerbation. EKG reporting atrial fibrillation. Maintaining O2 sats in the 90s on room air. Afebrile, normal WBC, hemoglobin 9.2, platelets 296, INR 1.3 sodium 141, potassium 4.5, bicarb 19, BUN 33, creatinine 2.3increased to 2.73, baseline creatinine 1.4 documented in 2021, glucose 119, hemoglobin A1c 7.6. Magnesium 0.9 on admission, supplemented, repeat level 1.3. proBNP 8990. IVP Lasix initiated in the ER. 02/02/2025 maintained on nebulized bronchodilators, Symbicort, Spiriva. Yesterday IV push Lasix transitioned to oral as per cardiology. Echo results pending. breathing easier, coughing has subsided. Denies chest pain, palpitations or shortness of breath. Maintaining O2 sats in the mid 90s on room air. Afebrile. Renal ultrasound reported moderate right greater than left hydronephrosis, abnormally distended bladder. Right kidney , lateral border, thin-walled cyst measuring 3.8 x 3.9 x 2.6 cm. Left kidney lateral border, thin-walled cyst measuring 4.9 x 4.3 x 3.7 cm. Bilateral jets, only right jets seen. Bladder scannned during the night for a thousand, straight cath for 1500. this morning for 980, straight cathed for 1000ml. Gorman catheter to be inserted. Bicarb 20, BUN 36, creatinine 2.79. Blood sugars better controlled. Magnesium supplemented yesterday, 1.4, resupplementation ordered. Aggressive pulmonary toileting with nebulized bronchodilators, Symb icort/Spiriva.diuretics as per cardiology.repeat magnesium supplementation. SAGE thacker. PT/OT consulted. Urology consulted secondary to renal ultrasound reporting bilateral hydronephrosis, abnormally distended bladder, only right jet seen. Flomax ,Gorman catheter and urology consult initiated. UA with culture. Evaluated by urology recommending outpatient urodynamics prior to Gorman catheter removal. Significant clinical improvement. Creatinine down to 2.28. Denies chest pain, palpitations or shortness of breath. Maintaining O2 sats in the mid to high 90s on room air. Afebrile, WBC decreased to 13.7, UA negative for nitrates, large for leukocytes, urine culture in progress. Magnesium 1.3, supplemented. Received Symbicort and Spiriva inpatient, will transition to [facility] outpatient for COPD maintenance. Patient will be discharged home on Jardiance. Patient will be discharged home today in a stable condition with guarded prognosis. The impression and plan of care has been dictated as directed. : I performed a history and examination of this patient, discussed the same with the dictator. I agree with the dictator's note ,documented as a scribe. Any additional findings or plans will be noted. Patient Condition at Discharge: Stable Plan - Discharge Summary New Discharge Prescriptions: New Fluticasone/Umeclidin/Vilanter [Trelegy Ellipta 100-62.5-25] 1 inhalation INHALATION DAILY #1 each Tamsulosin [Flomax] 0.4 mg PO PC-BRKFST #30 cap Furosemide [Lasix] 40 mg PO BID@0900,1600 #60 tab Metoprolol Succinate (ER) [Toprol XL] 50 mg PO DAILY #30 tab Continue Simvastatin [Zocor] 40 mg PO DAILY Omeprazole [PriLOSEC] 20 mg PO BID Apixaban [Eliquis] 5 mg PO BID Levothyroxine Sodium [Synthroid] 88 mcg PO DAILY Doxazosin [Cardura] 2 mg PO DAILY traZODone HCL [Desyrel] 50 - 100 mg PO HS Potassium Chloride [Klor-Con 10 ER] 10 meq PO DAILY busPIRone HCL 10 mg PO TID PRN PRN Reason: Anxiety Aspirin EC [Ecotrin Low Dose] 81 mg PO DAILY Discontinued Metoprolol Succinate (ER) [Toprol XL] 25 mg PO DAILY Spironolactone [Aldactone] 25 mg PO DAILY #30 tab Discharge Medication List Simvastatin [Zocor] 40 mg PO DAILY 02/09/14 [History] Omeprazole [PriLOSEC] 20 mg PO BID 09/12/14 [History] Apixaban [Eliquis] 5 mg PO BID 01/16/18 [History] Levothyroxine Sodium [Synthroid] 88 mcg PO DAILY 07/13/19 [History] Doxazosin [Cardura] 2 mg PO DAILY 06/09/22 [History] Potassium Chloride [Klor-Con 10 ER] 10 meq PO DAILY 06/09/22 [History] busPIRone HCL 10 mg PO TID PRN 06/09/22 [History] traZODone HCL [Desyrel] 50 - 100 mg PO HS 06/09/22 [History] Aspirin EC [Ecotrin Low Dose] 81 mg PO DAILY 01/31/25 [History] Fluticasone/Umeclidin/Vilanter [Trelegy Ellipta 100-62.5-25] 1 inhalation INHALATION DAILY #1 each 02/03/25 [Rx] Furosemide [Lasix] 40 mg PO BID@0900,1600 #60 tab 02/03/25 [Rx] Metoprolol Succinate (ER) [Toprol XL] 50 mg PO DAILY #30 tab 02/03/25 [Rx] Tamsulosin [Flomax] 0.4 mg PO PC-BRKFST #30 cap 02/03/25 [Rx] Follow up Appointment(s)/Referral(s): [facility], [NON-STAFF] - Dakota Stahl Jr, DO [Primary Care Provider] - 3 Days Steffen Arita MD [STAFF PHYSICIAN] - 1 Week Laurence Donnelly MD [STAFF PHYSICIAN] - 1 Week Ambulatory/Diagnostic Orders: Basic Metabolic Panel [LAB.AMB] Time Frame: 3 Days, Location: None Selected Activity/Diet/Wound Care/Special Instructions: Urine culture pending Discharge/Stand Alone Forms: Who Do I Call? Discharge Disposition: HOME WITH HOME HEALTH SERVICES
[2025-02-03] MEDS ORDERED: INSULIN GLARGINE (LANTUS) 100 UNIT/ML SYR SQ SCH (14:47)
[2025-02-03 16:04] VITALS: PULSE 84
--- NOTE | 2025-02-03 16:19 | P.PN ---
Subjective Patient is seen for follow-up for acute kidney injury. Mostly obstructive uropathy, currently with indwelling Gorman catheter. No significant complaints today. Serum creatinine was 2.7 yesterday. Lasix was been decreased Labs are pending from today Objective - Vital Signs Vital signs: Vital Signs Temp 97.9 F 02/03/25 08:00 Pulse 84 02/03/25 16:10 Resp 16 02/03/25 12:00 BP 97/64 02/03/25 12:00 Pulse Ox 94 L 02/03/25 12:00 FiO2 Intake & Output 02/02/25 02/03/25 02/03/25 18:59 06:59 18:59 Intake Total 480 Output Total 3100 3075 1800 Balance -2620 -3075 -1800 Weight 93.5 kg 94 kg Intake: Oral 480 Output: Urine 3100 3075 1800 Straight 1000 Other: Voiding Method Indwelling Catheter Indwelling Catheter Indwelling Catheter # Voids 0 # Bowel Movements 0 - Exam Patient is awake, comfortable, no acute distress Examination of the heart S1 and S2 Examination of the lungs bilateral breath sounds are heard Abdomen is soft nontender Examination lower extremities shows trace edema [employer] exam grossly intact - Labs CBC & Chem 7: 02/03/25 07:30 02/03/25 06:40 Labs: Abnormal Lab Results - Last 24 Hours (Table) 02/02/25 02/02/25 02/02/25 Range/Units 17:03 20:04 21:41 WBC 13.16 H (4.50-10.00) 10*3/uL RBC 3.43 L (4.40-5.60) 10*6/uL Hgb 10.7 L (13.0-17.0) g/dL Hct 32.3 L (39.6-50.0) % Immature Gran # (0.00-0.04) 10*3/uL Neutrophils # (1.80-7.70) 10*3/uL Monocytes # (0.20-1.00) 10*3/uL BUN (9-20) mg/dL Creatinine (0.66-1.25) mg/dL Glucose (74-99) mg/dL POC Glucose (mg/dL) 180 H 158 H (70-110) mg/dL Magnesium (1.6-2.3) mg/dL 02/03/25 02/03/2525 Range/Units 06:00 06:40 06:40 WBC 14.99 H (4.50-10.00) 10*3/uL RBC 3.51 L (4.40-5.60) 10*6/uL Hgb 11.0 L (13.0-17.0) g/dL Hct 32.9 L (39.6-50.0) % Immature Gran # 0.09 H (0.00-0.04) 10*3/uL Neutrophils # 11.66 H (1.80-7.70) 10*3/uL Monocytes # 1.34 H (0.20-1.00) 10*3/uL BUN 35 H (9-20) mg/dL Creatinine 2.28 H (0.66-1.25) mg/dL Glucose 145 H (74-99) mg/dL POC Glucose (mg/dL) 160 H (70-110) mg/dL Magnesium (1.6-2.3) mg/dL 02/03/25 02/03/25 02/03/25 Range/Units 06:40 07:30 11:40 WBC 13.70 H (4.50-10.00) 10*3/uL RBC 3.42 L (4.40-5.60) 10*6/uL Hgb 10.5 L (13.0-17.0) g/dL Hct 32.1 L (39.6-50.0) % Immature Gran # (0.00-0.04) 10*3/uL Neutrophils # (1.80-7.70) 10*3/uL Monocytes # (0.20-1.00) 10*3/uL BUN (9-20) mg/dL Creatinine (0.66-1.25) mg/dL Glucose (74-99) mg/dL POC Glucose (mg/dL) 251 H (70-110) mg/dL Magnesium 1.3 L (1.6-2.3) mg/dL Assessment and Plan Assessment: 1. Acute kidney injury, cardiorenal and from urine retention. Ultrasound shows bilateral hydronephrosis with significantly distended bladder. Status post Gorman catheter placement 2. Chronic kidney disease stage IIIa with previous creatinine 1.4 in 2021. Etiology is likely nephrosclerosis. Previous UA showed trace proteinuria in 2021. 3. [place] metabolic acidosis associated with acute kidney injury, improved 4. Hypomagnesemia secondary to proton pump inhibitors, status post replacement 5. Acute CHF exacerbation with decreased ejection fraction of 40% noted on echocardiogram on 11/07/2024 6. Urine retention with bilateral hydronephrosis Plan: Continue with the current dose of Lasix Continue with Gorman catheter Follow-up on labs Follow-up on urine culture, currently not on antibiotics.
== END 2025-02-03 16:30 | disposition home health service (06) | DRG 291 ==
LOC: EC 11:35 → 3SCARD 14:21
PROVIDERS: ADMIT Family Medicine; ATTEND Family Medicine
DX: I13.0 Hypertensive heart and chronic kidney disease with heart failure and stage 1 through stage 4 chronic kidney disease, or unspecified chronic kidney disease (principal); I50.23 Acute on chronic systolic (congestive) heart failure; E87.20 Acidosis, unspecified; I27.20 Pulmonary hypertension, unspecified; J44.9 Chronic obstructive pulmonary disease, unspecified; E11.22 Type 2 diabetes mellitus with diabetic chronic kidney disease; N18.31 Chronic kidney disease, stage 3a; Z68.31 Body mass index [BMI] 31.0-31.9, adult; E03.9 Hypothyroidism, unspecified; I08.3 Combined rheumatic disorders of mitral, aortic and tricuspid valves; I48.21 Permanent atrial fibrillation; N17.9 Acute kidney failure, unspecified; N13.30 Unspecified hydronephrosis; Z11.52 Encounter for screening for COVID-19; Z79.890 Hormone replacement therapy; I25.10 Atherosclerotic heart disease of native coronary artery without angina pectoris; E66.9 Obesity, unspecified; E78.5 Hyperlipidemia, unspecified; E83.42 Hypomagnesemia; N28.1 Cyst of kidney, acquired; I25.2 Old myocardial infarction; I44.7 Left bundle-branch block, unspecified; N39.490 Overflow incontinence; N40.1 Benign prostatic hyperplasia with lower urinary tract symptoms; Z79.01 Long term (current) use of anticoagulants; Z79.82 Long term (current) use of aspirin; Z79.899 Other long term (current) drug therapy; Z85.828 Personal history of other malignant neoplasm of skin; Z98.42 Cataract extraction status, left eye; Z87.19 Personal history of other diseases of the digestive system; Z88.5 Allergy status to narcotic agent; Z91.011 Allergy to milk products; Z96.651 Presence of right artificial knee joint; Z87.891 Personal history of nicotine dependence
CPT/HCPCS: 36415; 71046; 76770; 80048; 80053; 81001; 83036; 83605; 83735; 83880; 84145; 84484; 85025; 85027; 85610; 85730; 87086; 87636; 93005; 93306; 94640; 94760; 96365; 96366; 96375; 99285

== ENCOUNTER 2025-02-04 15:46 | Emergency (ER) | payer MEDICARE ==
--- NOTE | 2025-02-04 17:19 | ED ---
General Adult HPI - General Chief complaint: Urogenital Stated complaint: Removed Catheter Time Seen by Provider: 02/04/25 15:57 Source: patient, RN notes reviewed Mode of arrival: wheelchair Limitations: no limitations - History of Present Illness Initial comments: 85-year-old male presents to the emergency department for urinary catheter replacement. Patient states that he ripped his catheter out because he was attempting to have bowel movements last night and it was "in the way."He notes that he pulled it out intentionally. He denies any symptoms at this time. - Related Data Home Medications Medication Instructions Recorded Confirmed Simvastatin [Zocor] 40 mg PO DAILY 02/09/14 01/31/25 Omeprazole [PriLOSEC] 20 mg PO BID 09/12/14 01/31/25 Apixaban [Eliquis] 5 mg PO BID 01/16/18 01/31/25 Levothyroxine Sodium [Synthroid] 88 mcg PO DAILY 07/13/19 01/31/25 Doxazosin [Cardura] 2 mg PO DAILY 06/09/22 01/31/25 Potassium Chloride [Klor-Con 10 ER] 10 meq PO DAILY 06/09/22 01/31/25 busPIRone HCL 10 mg PO TID PRN 06/09/22 01/31/25 traZODone HCL [Desyrel] 50 - 100 mg PO HS 06/09/22 01/31/25 Aspirin EC [Ecotrin Low Dose] 81 mg PO DAILY 01/31/25 01/31/25 Previous Rx's Medication Instructions Recorded Empagliflozin [Jardiance] 10 mg PO DAILY #30 tablet 02/03/25 Fluticasone/Umeclidin/Vilanter 1 inhalation INHALATION DAILY #1 02/03/25 [Trelegy Ellipta 100-62.5-25] each Furosemide [Lasix] 40 mg PO BID@0900,1600 #60 tab 02/03/25 Metoprolol Succinate (ER) [Toprol 50 mg PO DAILY #30 tab 02/03/25 XL] Tamsulosin [Flomax] 0.4 mg PO PC-BRKFST #30 cap 02/03/25 Allergies Allergy/AdvReac Type Severity Reaction Status Date / Time silicone Allergy Rash/Hives Verified 01/31/25 14:18 hydromorphone HCl AdvReac Nausea & Verified 01/31/25 14:18 [From Dilaudid] Vomiting Milk Containing Products AdvReac Diarrhea Verified 01/31/25 14:18 (Dairy) [Milk Containing Products] powder from latex gloves Allergy Rash/Hives Uncoded 01/31/25 11:51 Review of Systems ROS Statement: Those systems with pertinent positive or pertinent negative responses have been documented in the HPI. ROS Other: All systems not noted in ROS Statement are negative. Past Medical History Past Medical History: Atrial Fibrillation, Coronary Artery Disease (CAD), GERD/Reflux, Hyperlipidemia, Hypertension, Myocardial Infarction (DE), Prostate Disorder, Thyroid Disorder Additional Past Medical History / Comment(s): Enlarged Prostate, States DE 30 years ago. Last Myocardial Infarction Date:: 1987 History of Any Multi-Drug Resistant Organisms: None Reported Past Surgical History: Heart Catheterization, Hernia Repair, Orthopedic Surgery Additional Past Surgical History / Comment(s): skin cancer, L eye cataract, R knee replacement Past Anesthesia/Blood Transfusion Reactions: No Reported Reaction Past Psychological History: No Psychological Hx Reported Smoking Status: Former smoker - Past Family History Mother Family Medical History: No Reported History Sister(s) Family Medical History: Cancer Additional Family Medical History / Comment(s): Ovarian Brother(s) Family Medical History: Cancer Additional Family Medical History / Comment(s): Non-Hodgkins Lymphoma General Exam Limitations: no limitations General appearance: alert, in no apparent distress Head exam: Present: atraumatic, normocephalic, normal inspection Eye exam: Present: normal appearance, PERRL, EOMI. Absent: scleral icterus, conjunctival injection, periorbital swelling Neck exam: Present: normal inspection. Absent: tenderness, meningismus, lymphadenopathy Respiratory exam: Present: normal lung sounds bilaterally. Absent: respiratory distress, wheezes, rales, rhonchi, stridor Cardiovascular Exam: Present: regular rate, normal rhythm, normal heart sounds. Absent: systolic murmur, diastolic murmur, rubs, gallop, clicks GI/Abdominal exam: Present: soft. Absent: distended, tenderness, guarding, rebound, rigid Neurological exam: Present: alert, oriented X3 Psychiatric exam: Present: normal affect, normal mood Course Vital Signs 02/04/25 02/04/25 15:51 17:57 Temperature 97.4 F L 98.1 F Pulse Rate 90 86 Respiratory 16 18 Rate Blood Pressure 113/73 126/72 O2 Sat by Pulse 97 99 Oximetry Medical Decision Making - Medical Decision Making Was pt. sent in by a medical professional or institution (SANG Johnson, CLERICAL MANAGER, urgent care, hospital, or group home...) When possible be specific @ -No Did you speak to anyone other than the patient for history (EMS, parent, family, police, friend...)? What history was obtained from this source @ -No Did you review nursing and triage notes (agree or disagree)? Why? @ -I reviewed and agree with nursing and triage notes Were old charts reviewed (outside hosp., previous admission, EMS record, old EKG, old radiological studies, urgent care reports/EKG's, group home records)? Report findings @ -No old charts were reviewed Differential Diagnosis (chest pain, altered mental status, abdominal pain women, abdominal pain men, vaginal bleeding, weakness, fever, dyspnea, syncope, headache, dizziness, GI bleed, back pain, seizure, CVA, palpatations, mental health, musculoskeletal)? @ -Not applicable EKG interpreted by me (3pts min.). @ -None X-rays interpreted by me (1pt min.). @ -None done CT interpreted by me (1pt min.). @ -None done U/S interpreted by me (1pt. min.). @ -None done What testing was considered but not performed or refused? (CT, X-rays, U/S, labs)? Why? @ -None What meds were considered but not given or refused? Why? @ -None Did you discuss the management of the patient with other professionals (pro fessionals i.e. SANG Johnson, CLERICAL MANAGER, lab, RT, psych nurse, licensed master social worker, laborer bituminous paving, teacher, booking police officer, onsite case manager)? Give summary @ -No Was smoking cessation discussed for >3mins.? @ -No Was critical care preformed (if so, how long)? @ -No Were there social determinants of health that impacted care today? How? (Homelessness, low income, unemployed, alcoholism, drug addiction, transportation, low edu. Level, literacy, decrease access to med. care, [facility], rehab)? @ -No Was there de-escalation of care discussed even if they declined (Discuss DNR or withdrawal of care, Hospice)? DNR status @ -No What co-morbidities impacted this encounter? (DM, HTN, Smoking, COPD, CAD, Cancer, CVA, ARF, Chemo, Hep., AIDS, mental health diagnosis, sleep apnea, morbid obesity)? @ -None Was patient admitted / discharged? Hospital course, mention meds given and route, prescriptions, significant lab abnormalities, going to OR and other pertinent info. @ -Discharge. Patient presented emergency department after ripping out his Gorman catheter. Patient had bladder scan of 941 cc. Urinary catheter was replaced. Advise follow-up with urology. Case discussed with Dr. Stout. Undiagnosed new problem with uncertain prognosis? @ -No Drug Therapy requiring intensive monitoring for toxicity (Heparin, Nitro, Insulin, Cardizem)? @ -No Were any procedures done? @ -No Diagnosis/symptom? @ -Urinary retention Acute, or Chronic, or Acute on Chronic? @ -Acute Uncomplicated (without systemic symptoms) or Complicated (systemic symptoms)? @ -Uncomplicated Side effects of treatment? @ -No Exacerbation, Progression, or Severe Exacerbation? @ -No Poses a threat to life or bodily function? How? (Chest pain, [place], DE, pneumonia, PE, COPD, DKA, ARF, appy, cholecystitis, CVA, Diverticulitis, Homicidal, Suic idal, threat to staff... and all critical care pts) @ -No Disposition Clinical Impression: Urinary retention Disposition: HOME SELF-CARE Condition: Stable Instructions (If sedation given, give patient instructions): Urinary Retention in Men (ED) Additional Instructions: Please follow-up with urology. Return to the emergency department for new or worsening symptoms. Is patient prescribed a controlled substance at d/c from ED?: No Referrals: Dakota Stahl Jr, DO [Primary Care Provider] - 1-2 days
[2025-02-04 17:59] VITALS: BP 126/72; PULSE 86; RESP 18; TEMP 98.1
== END 2025-02-04 17:59 | disposition home or self-care (01) ==
LOC: EC 15:46
DX: R33.9 Retention of urine, unspecified (principal); Z87.891 Personal history of nicotine dependence; Z88.5 Allergy status to narcotic agent; Z91.011 Allergy to milk products; Z88.8 Allergy status to other drugs, medicaments and biological substances
CPT/HCPCS: 51702; 51798; 99282

== ENCOUNTER 2025-02-10 00:38 | Inpatient (IN) | payer MEDICARE ==
[2025-02-10] MEDS: SODIUM CHLORIDE 0.9% 500 ML 500 ML IV ONE (01:20)
[2025-02-10 01:22] LABS: Basophils # (A) 0.03 10*3/uL (0.00-0.10); Basophils % (A) 0.2 %; Eosinophils # (A) 0.08 10*3/uL (0.04-0.35); Eosinophils % (A) 0.4 %; Lymphocytes # (A) 0.68 10*3/uL (0.90-5.00); Lymphocytes % (A) 3.5 %; MCH 30.7 pg (27.0-32.0); MCHC 33.3 g/dL (32.0-37.0); MCV 92.1 fL (80.0-97.0); Mean Platelet Volume 10.5 fL (9.5-12.2); Monocytes # (A) 1.61 10*3/uL (0.20-1.00); Monocytes % (A) 8.3 %; Neutrophils # (A) 16.76 10*3/uL (1.80-7.70); Neutrophils % (A) 86.3 %; Platelet Count 279 10*3/uL (140-440); RBC 2.15 10*6/uL (4.40-5.60); RDW 13.2 % (11.5-14.5); WBC 19.42 10*3/uL (4.50-10.00)
[2025-02-10 01:24] LABS: VBG PH 7.3 (7.31-7.41)
[2025-02-10 01:26] LABS: HCT 19.8 % (39.6-50.0)
--- NOTE | 2025-02-10 01:27 | ED ---
General Adult HPI - General Chief complaint: Weakness Stated complaint: Hypotension, Weakness Time Seen by Provider: 02/10/25 00:41 Source: patient, EMS, RN notes reviewed, old records reviewed Mode of arrival: EMS Limitations: altered mental status - History of Present Illness Initial comments: 85-year-old male presenting with weakness. History is quite limited. Paramedics had reported the patient to be hypoxic requiring supplemental oxygen. Patient was although also noted to be hypotensive. He was given IV fluid by paramedics. This has been an ongoing issue there is been multiple hospital admissions over the past several weeks and months according to paramedics. Patient denies pain complaint. - Related Data Home Medications Medication Instructions Recorded Confirmed Simvastatin [Zocor] 40 mg PO DAILY 02/09/14 01/31/25 Omeprazole [PriLOSEC] 20 mg PO BID 09/12/14 01/31/25 Apixaban [Eliquis] 5 mg PO BID 01/16/18 01/31/25 Levothyroxine Sodium [Synthroid] 88 mcg PO DAILY 07/13/19 01/31/25 Doxazosin [Cardura] 2 mg PO DAILY 06/09/22 01/31/25 Potassium Chloride [Klor-Con 10 ER] 10 meq PO DAILY 06/09/22 01/31/25 busPIRone HCL 10 mg PO TID PRN 06/09/22 01/31/25 traZODone HCL [Desyrel] 50 - 100 mg PO HS 06/09/22 01/31/25 Aspirin EC [Ecotrin Low Dose] 81 mg PO DAILY 01/31/25 01/31/25 Previous Rx's Medication Instructions Recorded Empagliflozin [Jardiance] 10 mg PO DAILY #30 tablet 02/03/25 Fluticasone/Umeclidin/Vilanter 1 inhalation INHALATION DAILY #1 02/03/25 [Trelegy Ellipta 100-62.5-25] each Furosemide [Lasix] 40 mg PO BID@0900,1600 #60 tab 02/03/25 Metoprolol Succinate (ER) [Toprol 50 mg PO DAILY #30 tab 02/03/25 XL] Tamsulosin [Flomax] 0.4 mg PO PC-BRKFST #30 cap 02/03/25 Allergies Allergy/AdvReac Type Severity Reaction Status Date / Time silicone Allergy Rash/Hives Verified 02/10/25 00:50 hydromorphone HCl AdvReac Nausea & Verified 02/10/25 00:50 [From Dilaudid] Vomiting Milk Containing Products AdvReac Diarrhea Verified 02/10/25 00:50 (Dairy) [Milk Containing Products] powder from latex gloves Allergy Rash/Hives Uncoded 02/10/25 00:50 Review of Systems ROS Statement: Those systems with pertinent positive or pertinent negative responses have been documented in the HPI. ROS Other: All systems not noted in ROS Statement are negative. Past Medical History Past Medical History: Atrial Fibrillation, Coronary Artery Disease (CAD), GERD/Reflux, Hyperlipidemia, Hypertension, Myocardial Infarction ([place]), Prostate Disorder, Thyroid Disorder Additional Past Medical History / Comment(s): Enlarged Prostate, States MN 30 years ago. Last Myocardial Infarction Date:: 1987 History of Any Multi-Drug Resistant Organisms: None Reported Past Surgical History: Heart Catheterization, Hernia Repair, Orthopedic Surgery Additional Past Surgical History / Comment(s): skin cancer, L eye cataract, R knee replacement Past Anesthesia/Blood Transfusion Reactions: No Reported Reaction Past Psychological History: No Psychological Hx Reported Smoking Status: Former smoker Past Alcohol Use History: Unable to Obtain Past Drug Use History: Unable to Obtain - Past Family History Mother Family Medical History: No Reported History Sister(s) Family Medical History: Cancer Additional Family Medical History / Comment(s): Ovarian Brother(s) Family Medical History: Cancer Additional Family Medical History / Comment(s): Non-Hodgkins Lymphoma General Exam Limitations: no limitations General appearance: lethargic Head exam: Present: atraumatic, normocephalic Eye exam: Present: PERRL ENT exam: Present: mucous membranes dry Respiratory exam: Present: respiratory distress, other (Tachypneic). Absent: wheezes, rhonchi Cardiovascular Exam: Present: regular rate, irregular rhythm GI/Abdominal exam: Absent: soft, distended, tenderness Extremities exam: Present: normal inspection, normal capillary refill Neurological exam: Absent: motor sensory deficit Skin exam: Present: pallor. Absent: cyanosis Course Vital Signs 02/10/25 02/10/25 02/10/25 00:40 01:00 01:30 Temperature 98.0 F Pulse Rate 79 77 86 Respiratory 40 H 35 H 33 H Rate Blood Pressure 93/46 77/48 95/46 O2 Sat by Pulse 100 100 97 Oximetry 02/10/25 02/10/25 02/10/25 02:15 03:15 04:30 Temperature 97.4 F L Pulse Rate 95 72 68 Respiratory 28 H 38 H 29 H Rate Blood Pressure 95/45 88/53 80/57 O2 Sat by Pulse 98 100 100 Oximetry 02/10/25 02/10/25 02/10/25 04:49 05:00 05:09 Temperature 97.3 F L 97.4 F L Pulse Rate 68 90 66 Respiratory 26 H 39 H 26 H Rate Blood Pressure 94/41 94/48 94/48 O2 Sat by Pulse 100 98 100 Oximetry 02/10/25 06:00 Temperature Pulse Rate 73 Respiratory 30 H Rate Blood Pressure 96/55 O2 Sat by Pulse 99 Oximetry - Reevaluation(s) Reevaluation #1: 02/10/25 02:36 Patient reevaluated on multiple occasions. Patient and son informed of the significant lab abnormalities and the poor prognosis. Son and patient do indicate that the patient is a DNR and would not want aggressive measures. They are agreeable with blood and fluids. There was a discussion with the primary care earlier this week about hospice care and at this time son and patient are declining hospice. Reevaluation #2: 02/10/25 06:40 I did confirm with the son that the patient would want to be kept comfortable and no further aggressive measures would be taken. Including no pressors. Medical Decision Making - Medical Decision Making Was pt. sent in by a medical professional or institution (, PA, TRANSMISSION SYSTEMS OPERATOR, urgent care, hospital, or fci...) When possible be specific @ -No Did you speak to anyone other than the patient for history (EMS, parent, family, police, friend...)? What history was obtained from this source @ -No Did you review nursing and triage notes (agree or disagree)? Why? @ -I reviewed and agree with nursing and triage notes Were old charts reviewed (outside hosp., previous admission, EMS record, old EKG, old radiological studies, urgent care reports/EKG's, fci records)? Report findings @ -No old charts were reviewed Differential Weakness: Hypoglycemia, shock, sepsis, hyponatremia, anemia, infection, [place], ETOH, adverse medicine reaction, overdose, stroke, this is not meant to be an all-inclusive list. EKG interpreted by me (3pts min.). @ -Atrial fibrillation with left bundle branch block, history of left bundle branch block, ventricular rate of 83, QRS duration 169, QTc 495 X-rays interpreted by me (1pt min.). @ -[Chest x-ray showing cardiomegaly CT interpreted by me (1pt min.). @ -None done U/S interpreted by me (1pt. min.). @ -None done What testing was considered but not performed or refused? (CT, X-rays, U/S, labs)? Why? @ -None What meds were considered but not given or refused? Why? @ -None Did you discuss the management of the patient with other professionals (professionals i.e. DrFabricio, PA, TRANSMISSION SYSTEMS OPERATOR, lab, RT, psych nurse, social media content specialist, mental health consultant, teacher, chief clinical officer, disease case manager)? Give summary @ -Dr. Stahl Was smoking cessation discussed for >3mins.? @ -No Was critical care preformed (if so, how long)? @ -Yes, 35 minutes Were there social determinants of health that impacted care today? How? (Homelessness, low income, unemployed, alcoholism, drug addiction, transportation, low edu. Level, literacy, decrease access to med. care, group home, rehab)? @ -No Was there de-escalation of care discussed even if they declined (Discuss DNR or withdrawal of care, Hospice)? DNR status @DNR What co-morbidities impacted this encounter? (DM, HTN, Smoking, COPD, CAD, Cancer, CVA, ARF, Chemo, Hep., AIDS, mental health diagnosis, sleep apnea, morbid obesity)? @ -Chronic kidney disease, indwelling Gorman catheter. Was patient admitted / discharged? Hospital course, mention meds given and route, prescriptions, significant lab abnormalities, going to OR and other pertinent info. @ -85-year-old male presenting in extremis, hypotensive, hypoxic, tachypneic. Patient is a DNR, DNI. Patient had a traumatic accidental Gorman removal earlier in the week and has had persistent hematuria. Hemoglobin is significantly down at 6.6 requiring transfusion. Patient is in acute renal failure with significantly elevated BUN and creatinine. He has a leukocytosis. He has an elevated troponin and a significantly elevated BNP. Patient's prognosis given the multiorgan failure is quite poor. I did inform the patient and son of his significant lab abnormalities and poor prognosis. Undiagnosed new problem with uncertain prognosis? @ -No Drug Therapy requiring intensive monitoring for toxicity (Heparin, Nitro, Insulin, Cardizem)? @ -No Were any procedures done? @ -No Diagnosis/symptom? @ -Multiorgan failure, hemorrhagic shock, sepsis, acute kidney failure Acute, or Chronic, or Acute on Chronic? @ -[Acute Uncomplicated (without systemic symptoms) or Complicated (systemic symptoms)? @ -Default Side effects of treatment? @ -No Exacerbation, Progression, or Severe Exacerbation? @ -No Poses a threat to life or bodily function? How? (Chest pain, [place], [place], pneumonia, PE, COPD, DKA, ARF, appy, cholecystitis, CVA, Diverticulitis, Homicidal, Suicidal, threat to staff... and all critical care pts) @Yes, poor prognosis, multiorgan failure - Lab Data Result diagrams: 02/10/25 00:57 02/10/25 00:57 Lab Results 02/10/25 02/10/25 02/10/25 Range/Units 00:57 00:57 00:57 WBC 19.42 H (4.50-10.00) 10*3/uL RBC 2.15 L (4.40-5.60) 10*6/uL Hgb 6.6 L* D (13.0-17.0) g/dL Hct 19.8 L* (39.6-50.0) % MCV 92.1 (80.0-97.0) fL MCH 30.7 (27.0-32.0) pg MCHC 33.3 (32.0-37.0) g/dL Plt Count 279 (140-440) 10*3/uL MPV 10.5 (9.5-12.2) fL Immature Gran % (Auto) 1.3 % Neutrophils % 86.3 % Lymphocytes % 3.5 % Monocytes % 8.3 % Eosinophils % 0.4 % Basophils % 0.2 % Immature Gran # 0.26 H (0.00-0.04) 10*3/uL Neutrophils # 16.76 H (1.80-7.70) 10*3/uL Lymphocytes # 0.68 L (0.90-5.00) 10*3/uL Monocytes # 1.61 H (0.20-1.00) 10*3/uL Eosinophils # 0.08 (0.04-0.35) 10*3/uL Basophils # 0.03 (0.00-0.10) 10*3/uL PT 15.4 H (10.0-12.5) sec INR 1.5 H (<1.2) APTT 29.6 (22.0-30.0) sec VBG pH (7.31-7.41) VBG pCO2 (37-51) mmHg VBG HCO3 (24-28) mmol/L Sodium 129 L (137-145) mmol/L Potassium 5.7 H (3.5-5.1) mmol/L Chloride 98 (98-107) mmol/L Carbon Dioxide 12 L (22-30) mmol/L Anion Gap 19 mmol/L BUN 94 H (9-20) mg/dL Creatinine 7.79 H* (0.66-1.25) mg/dL Est GFR (CKD-EPI)AfAm 7 (>60 ml/min/1.73 sqM) Est GFR (CKD-EPI)NonAf 6 (>60 ml/min/1.73 sqM) Glucose 282 H (74-99) mg/dL Lactic Ac Sepsis Rflx Plasma Lactic Acid Jesús (0.7-2.0) mmol/L Calcium 7.6 L (8.4-10.2) mg/dL Magnesium 0.9 L* (1.6-2.3) mg/dL Total Bilirubin 0.8 (0.2-1.3) mg/dL AST 24 (17-59) U/L ALT 16 (4-49) U/L Alkaline Phosphatase 98 (38-126) U/L Troponin I (0.000-0.034) ng/mL NT-Pro-B Natriuret Pep 51580 pg/mL Total Protein 5.4 L (6.3-8.2) g/dL Albumin 2.9 L (3.5-5.0) g/dL Urine Color Urine Appearance (Clear) Urine pH Ur Specific [place] (1.001-1.035) Urine RBC (0-5) /hpf Urine WBC (0-5) /hpf Blood Type Blood Type Confirm Blood Type Recheck Bld Type Recheck Status Antibody Screen Crossmatch Spec Expiration Date 0602/10/25 02/10/25 Range/Units 00:57 00:57 00:57 WBC (4.50-10.00) 10*3/uL RBC (4.40-5.60) 10*6/uL Hgb (13.0-17.0) g/dL Hct (39.6-50.0) % MCV (80.0-97.0) fL MCH (27.0-32.0) pg MCHC (32.0-37.0) g/dL Plt Count (140-440) 10*3/uL MPV (9.5-12.2) fL Immature Gran % (Auto) % Neutrophils % % Lymphocytes % % Monocytes % % Eosinophils % % Basophils % % Immature Gran # (0.00-0.04) 10*3/uL Neutrophils # (1.80-7.70) 10*3/uL Lymphocytes # (0.90-5.00) 10*3/uL Monocytes # (0.20-1.00) 10*3/uL Eosinophils # (0.04-0.35) 10*3/uL Basophils # (0.00-0.10) 10*3/uL PT (10.0-12.5) sec INR (<1.2) APTT (22.0-30.0) sec VBG pH 7.30 L (7.31-7.41) VBG pCO2 31 L (37-51) mmHg VBG HCO3 15 L (24-28) mmol/L Sodium (137-145) mmol/L Potassium (3.5-5.1) mmol/L Chloride (98-107) mmol/L Carbon Dioxide (22-30) mmol/L Anion Gap mmol/L BUN (9-20) mg/dL Creatinine (0.66-1.25) mg/dL Est GFR (CKD-EPI)AfAm (>60 ml/min/1.73 sqM) Est GFR (CKD-EPI)NonAf (>60 ml/min/1.73 sqM) Glucose (74-99) mg/dL Lactic Ac Sepsis Rflx Plasma Lactic Acid Jesús 3.2 H* (0.7-2.0) mmol/L Calcium (8.4-10.2) mg/dL Magnesium (1.6-2.3) mg/dL Total Bilirubin (0.2-1.3) mg/dL AST (17-59) U/L ALT (4-49) U/L Alkaline Phosphatase (38-126) U/L Troponin I 0.046 H* (0.000-0.034) ng/mL NT-Pro-B Natriuret Pep pg/mL Total Protein (6.3-8.2) g/dL Albumin (3.5-5.0) g/dL Urine Color Urine Appearance (Clear) Urine pH Ur Specific [place] (1.001-1.035) Urine RBC (0-5) /hpf Urine WBC (0-5) /hpf Blood Type Blood Type Confirm Blood Type Recheck Bld Type Recheck Status Antibody Screen Crossmatch Spec Expiration Date 02/10/25 02/10/25 02/10/25 Range/Units 01:30 01:43 01:43 WBC (4.50-10.00) 10*3/uL RBC (4.40-5.60) 10*6/uL Hgb (13.0-17.0) g/dL Hct (39.6-50.0) % MCV (80.0-97.0) fL MCH (27.0-32.0) pg MCHC (32.0-37.0) g/dL Plt Count (140-440) 10*3/uL MPV (9.5-12.2) fL Immature Gran % (Auto) % Neutrophils % % Lymphocytes % % Monocytes % % Eosinophils % % Basophils % % Immature Gran # (0.00-0.04) 10*3/uL Neutrophils # (1.80-7.70) 10*3/uL Lymphocytes # (0.90-5.00) 10*3/uL Monocytes # (0.20-1.00) 10*3/uL Eosinophils # (0.04-0.35) 10*3/uL Basophils # (0.00-0.10) 10*3/uL PT (10.0-12.5) sec INR (<1.2) APTT (22.0-30.0) sec VBG pH (7.31-7.41) VBG pCO2 (37-51) mmHg VBG HCO3 (24-28) mmol/L Sodium (137-145) mmol/L Potassium (3.5-5.1) mmol/L Chloride (98-107) mmol/L Carbon Dioxide (22-30) mmol/L Anion Gap mmol/L BUN (9-20) mg/dL Creatinine (0.66-1.25) mg/dL Est GFR (CKD-EPI)AfAm (>60 ml/min/1.73 sqM) Est GFR (CKD-EPI)NonAf (>60 ml/min/1.73 sqM) Glucose (74-99) mg/dL Lactic Ac Sepsis Rflx Plasma Lactic Acid Jes[place]s (0.7-2.0) mmol/L Calcium (8.4-10.2) mg/dL Magnesium (1.6-2.3) mg/dL Total Bilirubin (0.2-1.3) mg/dL AST (17-59) U/L ALT (4-49) U/L Alkaline Phosphatase (38-126) U/L Troponin I (0.000-0.034) ng/mL NT-Pro-B Natriuret Pep pg/mL Total Protein (6.3-8.2) g/dL Albumin (3.5-5.0) g/dL Urine Color Red Urine Appearance Bloody (Clear) Urine pH TRANSMISSION SYSTEMS OPERATOR Ur Specific [place] 1.010 (1.001-1.035) Urine RBC >182 H (0-5) /hpf Urine WBC >182 H (0-5) /hpf Blood Type O Positive Blood Type Confirm O Positive Blood Type Recheck No Previous Record Bld Type Recheck Status CABO Indicated Antibody Screen NEGATIVE Crossmatch See Detail Spec Expiration Date 02/13/2025 - 232902/10/25 Range/Units 02:09 WBC (4.50-10.00) 10*3/uL RBC (4.40-5.60) 10*6/uL Hgb (13.0-17.0) g/dL Hct (39.6-50.0) % MCV (80.0-97.0) fL MCH (27.0-32.0) pg MCHC (32.0-37.0) g/dL Plt Count (140-440) 10*3/uL MPV (9.5-12.2) fL Immature Gran % (Auto) % Neutrophils % % Lymphocytes % % Monocytes % % Eosinophils % % Basophils % % Immature Gran # (0.00-0.04) 10*3/uL Neutrophils # (1.80-7.70) 10*3/uL Lymphocytes # (0.90-5.00) 10*3/uL Monocytes # (0.20-1.00) 10*3/uL Eosinophils # (0.04-0.35) 10*3/uL Basophils # (0.00-0.10) 10*3/uL PT (10.0-12.5) sec INR (<1.2) APTT (22.0-30.0) sec VBG pH (7.31-7.41) VBG pCO2 (37-51) mmHg VBG HCO3 (24-28) mmol/L Sodium (137-145) mmol/L Potassium (3.5-5.1) mmol/L Chloride (98-107) mmol/L Carbon Dioxide (22-30) mmol/L Anion Gap mmol/L BUN (9-20) mg/dL Creatinine (0.66-1.25) mg/dL Est GFR (CKD-EPI)AfAm (>60 ml/min/1.73 sqM) Est GFR (CKD-EPI)NonAf (>60 ml/min/1.73 sqM) Glucose (74-99) mg/dL Lactic Ac Sepsis Rflx Y Plasma Lactic Acid Jes[place]s (0.7-2.0) mmol/L Calcium (8.4-10.2) mg/dL Magnesium (1.6-2.3) mg/dL Total Bilirubin (0.2-1.3) mg/dL AST (17-59) U/L ALT (4-49) U/L Alkaline Phosphatase (38-126) U/L Troponin I (0.000-0.034) ng/mL NT-Pro-B Natriuret Pep pg/mL Total Protein (6.3-8.2) g/dL Albumin (3.5-5.0) g/dL Urine Color Urine Appearance (Clear) Urine pH Ur Specific [place] (1.001-1.035) Urine RBC (0-5) /hpf Urine WBC (0-5) /hpf Blood Type Blood Type Confirm Blood Type Recheck Bld Type Recheck Status Antibody Screen Crossmatch Spec Expiration Date Critical Care Time Critical Care Time: Yes Total Critical Care Time: 35 Disposition Clinical Impression: Hypomagnesemia, Elevated troponin, Acute renal failure, Hyponatremia, Anemia Disposition: ADMITTED IP TO THIS HOSP Condition: Serious Is patient prescribed a controlled substance at d/c from ED?: No Time of Disposition: 02:40
[2025-02-10 01:28] LABS: HGB 6.6 g/dL (13.0-17.0)
[2025-02-10 01:31] LABS: INR 1.5 (<1.2); Partial Thromboplastin Time 29.6 sec (22.0-30.0); Prothrombin Time 15.4 sec (10.0-12.5)
[2025-02-10 01:39] LABS: ALT 16 U/L (4-49); AST 24 U/L (17-59); African American GFR (CKD) 7 (>60 ml/min/1.73 sqM); Albumin 2.9 g/dL (3.5-5.0); Alkaline Phosphatase 98 U/L (38-126); Anion Gap 19 mmol/L; Blood Urea Nitrogen 94 mg/dL (9-20); Calcium 7.6 mg/dL (8.4-10.2); Carbon Dioxide 12 mmol/L (22-30); Chloride 98 mmol/L (98-107); Glucose 282 mg/dL (74-99); Non-African American GFR(CKD) 6 (>60 ml/min/1.73 sqM); Potassium 5.7 mmol/L (3.5-5.1); Sodium 129 mmol/L (137-145); Total Bilirubin 0.8 mg/dL (0.2-1.3); Total Protein 5.4 g/dL (6.3-8.2)
[2025-02-10 01:48] LABS: NT-Pro-B-Type Natriuretic Pept 12600 pg/mL
[2025-02-10 02:08] LABS: Magnesium 0.9 mg/dL (1.6-2.3)
[2025-02-10] MEDS ORDERED: ONDANSETRON 4 MG/2 ML VIAL IVP PRN (02:21)
[2025-02-10] MEDS ORDERED: NALOXONE 0.4 MG/ML 1 ML VIAL IV PRN (02:21)
[2025-02-10] MEDS: MAGNESIUM SULFATE-D5W PMX 1 GM in DEXTROSE/WATER 1 100ML.BAG IVPB SCH (02:21)
[2025-02-10] MEDS: SODIUM CHLORIDE 0.9% 1,000 ML IV SCH (02:39)
--- NOTE | 2025-02-10 04:15 | XR ---
EXAM: XR Chest, 1 View CLINICAL HISTORY: ITS.REASON XR Reason: weakness TECHNIQUE: Frontal view of the chest. COMPARISON: No relevant prior studies available. FINDINGS: Lungs: No consolidation or mass. Pleural space: No acute findings. Heart: cardiomegaly. Bones/joints: No acute findings. IMPRESSION: No acute cardiopulmonary process.
[2025-02-10 05:32] LABS: RBC,Urine >182 /hpf (0-5); WBC,Urine >182 /hpf (0-5)
[2025-02-10 05:34] LABS: Color,Urine Red
[2025-02-10 05:35] LABS: Appearance,Urine Bloody (Clear)
[2025-02-10] MEDS ORDERED: MORPHINE SULFATE 4 MG/ML SYRINGE IVP PRN (10:20)
[2025-02-10] MEDS ORDERED: DEXTROSE 50% SYRINGE 50 ML IVP PRN ×2 (10:24)
[2025-02-10 11:19] LABS: MCHC 32.8 g/dL (32.0-37.0); MCV 94.6 fL (80.0-97.0); Mean Platelet Volume 10.5 fL (9.5-12.2); Platelet Count 323 10*3/uL (140-440); RBC 2.03 10*6/uL (4.40-5.60); RDW 13.4 % (11.5-14.5)
[2025-02-10 11:25] LABS: African American GFR (CKD) 7 (>60 ml/min/1.73 sqM); Anion Gap 18 mmol/L; Blood Urea Nitrogen 92 mg/dL (9-20); Calcium 8.1 mg/dL (8.4-10.2); Carbon Dioxide 13 mmol/L (22-30); Chloride 100 mmol/L (98-107); Glucose 301 mg/dL (74-99); Non-African American GFR(CKD) 6 (>60 ml/min/1.73 sqM); Potassium 5.5 mmol/L (3.5-5.1); Sodium 131 mmol/L (137-145)
[2025-02-10 11:28] LABS: Glucose,Whole Blood 321 mg/dL (70-110)
[2025-02-10 11:32] LABS: HGB 6.3 g/dL (13.0-17.0)
[2025-02-10 11:33] LABS: HCT 19.2 % (39.6-50.0)
[2025-02-10] MEDS: METOPROLOL SUCCINATE (ER) 50 MG TAB.ER.24H PO SCH (12:34)
[2025-02-10] MEDS: DEXTROSE 5% IN WATER 1,000 ML with SODIUM BICARB (1 MEQ/ML) 150 ML IV SCH (12:48)
[2025-02-10] MEDS: PANTOPRAZOLE 40 MG/10 ML VIAL IVP SCH (12:49)
[2025-02-10] MEDS: INSULIN LISPRO (HumaLOG) 100 UNIT/ML 10 mL VL SQ SCH (12:52)
[2025-02-10] MEDS: FUROSEMIDE 10 MG/ML 2 ML VIAL IV ONE (12:55)
[2025-02-10] MEDS: SYMBICORT 160-4.5 MCG INHALER INHALATION SCH (13:00)
[2025-02-10] MEDS: MAGNESIUM SULFATE-D5W PMX 1 GM in DEXTROSE/WATER 1 100ML.BAG IVPB ONE (13:23)
--- NOTE | 2025-02-10 13:28 | P.CRDCN ---
History of Present Illness Consult date: 02/10/25 Reason for Consult (text): Heart failure, multiorgan failure History of present illness: This is an 85-year-old male patient of Dr. Ehsan Nguyễn with past medical history of chronic systolic heart failure, permanent atrial fibrillation, hypertension, dyslipidemia, mitral and aortic regurgitation. We have been asked to evaluate the patient for heart failure with multiorgan failure. Patient had a recent hospitalization 01/31 - 02/04 and was seen by cardiology for acute on chronic systolic heart failure. Patient apparently had Gorman catheter pulled out while balloon was intact and has gross hematuria. He currently denies shortness of breath, no chest pain or chest pressure, no dizziness or lightheadedness. He denies cough or fever. He denies lower extremity edema. He does complain of fatigue. He denies any nausea or vomiting. He states he has had some blood in his stools but this has not been witnessed by the nursing staff. Patient has gross hematuria in Gorman catheter. Blood pressure 94/57, heart rate 94, pulse ox 98% on room air. Patient presented with hemoglobin of 6.6 and dropped down to 6.3 following [address] Richmond has spoken to the granddaughter in detail regarding the patient's current condition and prognosis and recommendations for hospice care. She will plan to discuss with the other family members and make a decision. Patient has been made no code. -EKG: Atrial fibrillation with left bundle branch block. -Chest x-ray: No acute process. -Laboratory studies: Hemoglobin 6.3 which is down from 6.6 and after 1 unit of packed RBCs INR 1.5. BUN 92 and creatinine 7.73, potassium 5.5, sodium 131. Troponin 0.046 and 0.045. proBNP 13,200. Urinalysis bloody. -Home cardiac medications: Eliquis 5 mg twice daily, aspirin 81 mg daily, Jardiance 10 mg daily, Lasix 40 mg twice daily, Toprol-XL 50 mg daily, potassium chloride 10 mill equivalents daily, simvastatin 40 mg daily. - Echocardiogram performed on 02/02/2025 revealed EF 15 to 20%, moderate septal hypertrophy, hypokinetic inferior inferior lateral wall, dilated LV cavity with severely systolic function, severe biatrial dilatation, dilated RV with reduced EF, severe pulmonary hypertension with RVSP 60. Moderate mitral regurgitation, moderate tricuspid regurgitation. Review Of Systems: At the time of my exam: CONSTITUTIONAL: Denies fever or chills. Reports fatigue HEENT: Denies blurred vision, vision changes, or eye pain. Denies hemoptysis CARDIOVASCULAR: Denies chest pain. Denies orthopnea. Denies PND. Denies palpitations RESPIRATORY: Denies shortness of breath. GASTROINTESTINAL: Denies abdominal pain. Denies nausea or vomiting. HEMATOLOGIC: Denies bleeding disorders. GENITOURINARY: Noted gross blood in urine. SKIN: Denies puritis. Denies rash. Physical examination: Gen: This is 85-year-old male in no acute distress VS: reviewed HEENT: Head is atraumatic, normocephalic. Pupils equal, round. Sclerae is anicteric. NECK: Supple. No JVD. LUNGS: Diminished breath sounds. No wheezes or rhonchi. No intercostal retra ctions. HEART: Irregular rate and rhythm. ABDOMEN: Soft No tenderness. EXTREMITIES: No pedal edema. No calf tenderness. NEUROLOGICAL: Patient is awake, alert and oriented x3. Assessment: Gross hematuria Acute blood loss anemia Acute kidney injury Permanent atrial fibrillation, Eliquis on hold Hypertension Dyslipidemia Valvular heart disease with moderate to severe aortic regurgitation, mild to moderate mitral regurgitation, mild to moderate tricuspid regurgitation Moderate pulmonary hypertension with PASP 46 Plan: Resume patient's home cardiac medications Continue to hold Eliquis Metoprolol was decreased by admitting doctor due to hypotension No further cardiac workup at this time No need to repeat echocardiogram If patient transitions to hospice, cardiology will sign off. Thank you kindly for this consultation. Nurse practitioner note has been reviewed, I agree with documented findings and plan of care. Patient was seen and examined. Past Medical History Past Medical History: Atrial Fibrillation, Coronary Artery Disease (CAD), GERD/Reflux, Hyperlipidemia, Hypertension, Myocardial Infarction ([place]), Prostate Disorder, Thyroid Disorder Additional Past Medical History / Comment(s): Enlarged Prostate, States [place] 30 years ago. Last Myocardial Infarction Date:: 1987 History of Any Multi-Drug Resistant Organisms: None Reported Past Surgical History: Heart Catheterization, Hernia Repair, Orthopedic Surgery Additional Past Surgical History / Comment(s): skin cancer, L eye cataract, R knee replacement Past Anesthesia/Blood Transfusion Reactions: No Reported Reaction Past Psychological History: No Psychological Hx Reported Smoking Status: Former smoker Past Alcohol Use History: Unable to Obtain Past Drug Use History: Unable to Obtain - Past Family History Mother Family Medical History: No Reported History Sister(s) Family Medical History: Cancer Additional Family Medical History / Comment(s): Ovarian Brother(s) Family Medical History: Cancer Additional Family Medical History / Comment(s): Non-Hodgkins Lymphoma Medications and Allergies Home Medications Medication Instructions Recorded Confirmed Type Simvastatin [Zocor] 40 mg PO DAILY 02/09/14 02/10/25 History Omeprazole [PriLOSEC] 20 mg PO BID 09/12/14 02/10/25 History Apixaban [Eliquis] 5 mg PO BID 01/16/18 02/10/25 History Levothyroxine Sodium [Synthroid] 88 mcg PO DAILY 07/13/19 02/10/25 History Doxazosin [Cardura] 2 mg PO DAILY 06/09/22 02/10/25 History Potassium Chloride [Klor-Con 10 ER] 10 meq PO DAILY 06/09/22 02/10/25 History busPIRone HCL 10 mg PO TID PRN 06/09/22 02/10/25 History traZODone HCL [Desyrel] 50 - 100 mg PO HS 06/09/22 02/10/25 History Aspirin EC [Ecotrin Low Dose] 81 mg PO DAILY 01/31/25 02/10/25 History Empagliflozin [Jardiance] 10 mg PO DAILY #30 tablet 02/03/25 02/10/25 Rx Furosemide [Lasix] 40 mg PO BID@0900,1600 #60 tab 02/03/25 02/10/25 Rx Metoprolol Succinate (ER) [Toprol 50 mg PO DAILY #30 tab 02/03/25 02/10/25 Rx XL] Tamsulosin [Flomax] 0.4 mg PO PC-BRKFST #30 cap 02/03/25 02/10/25 Rx Fluticasone/Umeclidin/Vilanter 1 puff INHALATION RT-DAILY 02/10/25 02/10/25 History [Ajlegrace Ellipta 100-62.5-25] Allergies Allergy/AdvReac Type Severity Reaction Status Date / Time silicone Allergy Rash/Hives Verified 02/10/25 09:39 hydromorphone HCl AdvReac Nausea & Verified 02/10/25 09:39 [From Dilaudid] Vomiting Milk Containing Products AdvReac Diarrhea Verified 02/10/25 09:39 (Dairy) [Milk Containing Products] powder from latex gloves Allergy Rash/Hives Uncoded 02/10/25 09:39 Physical Exam Vitals: Vital Signs Temp Pulse Resp BP Pulse Ox 02/10/25 11:30 93 18 102/52 96 02/10/25 08:39 74 20 101/43 98 02/10/25 07:47 97.5 F L 83 24 93/59 99 02/10/25 06:00 73 30 H 96/55 99 02/10/25 05:09 97.4 F L 66 26 H 94/48 100 02/10/25 05:00 90 39 H 94/48 98 02/10/25 04:49 97.3 F L 68 26 H 94/41 100 02/10/25 04:30 97.4 F L 68 29 H 80/57 100 02/10/25 03:15 72 38 H 88/53 100 02/10/25 02:15 95 28 H 95/45 98 02/10/25 01:30 86 33 H 95/46 97 02/10/25 01:00 77 35 H 77/48 100 02/10/25 00:40 98.0 F 79 40 H 93/46 100 Intake and Output 02/09/25 02/10/25 02/10/25 22:59 06:59 14:59 Intake Total 0 310 Balance 0 310 Intake: Blood Product 0 310 Rc As-1 Unit 0 310 [id number] Other: Weight 81.647 kg Results 02/10/25 08:15 02/10/25 08:15 Cardiac Enzymes 02/10/25 02/10/25 02/10/25 Range/Units 00:57 00:57 10:29 AST 24 (17-59) U/L Troponin I 0.046 H* 0.045 H* (0.000-0.034) ng/mL Coagulation 02/10/25 Range/Units 00:57 PT 15.4 H (10.0-12.5) sec APTT 29.6 (22.0-30.0) sec CBC 02/10/25 02/10/25 Range/Units 00:57 08:15 WBC 19.42 H 28.10 H (4.50-10.00) 10*3/uL RBC 2.15 L 2.03 L (4.40-5.60) 10*6/uL Hgb 6.6 L* D 6.3 L* (13.0-17.0) g/dL Hct 19.8 L* 19.2 L* (39.6-50.0) % Plt Count 279 323 (140-440) 10*3/uL Comprehensive Metabolic Panel 02/10/25 02/10/25 Range/Units 00:57 08:15 Sodium 129 L 131 L (137-145) mmol/L Potassium 5.7 H 5.5 H (3.5-5.1) mmol/L Chloride 98 100 (98-107) mmol/L Carbon Dioxide 12 L 13 L (22-30) mmol/L BUN 94 H 92 H (9-20) mg/dL Creatinine 7.79 H* 7.73 H* (0.66-1.25) mg/dL Glucose 282 H 301 H (74-99) mg/dL Calcium 7.6 L 8.1 L (8.4-10.2) mg/dL AST 24 (17-59) U/L ALT 16 (4-49) U/L Alkaline Phosphatase 98 (38-126) U/L Total Protein 5.4 L (6.3-8.2) g/dL Albumin 2.9 L (3.5-5.0) g/dL Current Medications Generic Name Dose Route Start Last Admin Trade Name Freq PRN Reason Stop Dose Admin Acetaminophen 650 mg 02/10/25 02:21 Acetaminophen Tab 325 Mg Tab PO Q6HR PRN Mild Pain or Fever > 100.5 Budesonide/Formoterol Fumarate 2 puff 02/10/25 08:00 Symbicort 160-4.5 Mcg Inhaler INHALATION RT-BID [facility] Dextrose/Water 25 ml 02/10/25 10:24 Dextrose 50% Syringe 50 Ml IVP PER PROTOCOL PRN Hypoglycemia Protocol Dextrose/Water 50 ml 02/10/25 10:24 Dextrose 50% Syringe 50 Ml IVP PER PROTOCOL PRN Hypoglycemia Protocol Sodium Bicarbonate 150 ml/ 1,150 mls @ 70 mls/hr 02/10/25 11:30 Dextrose/Water IV .[id number] [facility] Insulin Human Lispro 0 unit 02/10/25 11:00 Insulin Lispro (Humalog) 100 Unit/Ml 10 Ml Vl SQ Q6HR [facility] Protocol Levothyroxine Sodium 88 mcg 02/10/25 10:30 Levothyroxine 88 Mcg Tab PO DAILY@0630 [facility] Metoprolol Succinate 50 mg 02/10/25 10:30 Metoprolol Succinate (Er) 50 Mg Tab.Er.24h PO DAILY [facility] Morphine Sulfate 2 mg 02/10/25 10:21 Morphine Sulfate 2 Mg/Ml Syringe IVP Q3H PRN Pain/Discomfort Naloxone HCl 0.2 mg 02/10/25 02:21 Naloxone 0.4 Mg/Ml 1 Ml Vial IV Q2M PRN Opioid Reversal Ondansetron HCl 4 mg 02/10/25 02:21 Ondansetron 4 Mg/2 Ml Vial IVP Q8HR PRN Nausea And Vomiting Pantoprazole Sodium 40 mg 02/10/25 10:30 Pantoprazole 40 Mg/10 Ml Vial IVP DAILY [facility] Tamsulosin HCl 0.4 mg 02/10/25 10:30 Tamsulosin 0.4 Mg Cap.Er.24h PO PC-BRKFST [facility] Tiotropium [place] 2 puff 02/11/25 08:00 Tiotropium 2.5 Mcg Inhaler INHALATION RT-DAILY [facility] Intake and Output 02/09/25 02/10/25 02/10/25 22:59 06:59 14:59 Intake Total 0 310 Balance 0 310 Intake: Blood Product 0 310 Rc As-1 Unit 0 310 [id number] Other: Weight 81.647 kg 02/10/25 08:15 02/10/25 08:15
[2025-02-10] MEDS: METOPROLOL SUCCINATE (ER) 25 MG TAB.ER.24H PO SCH (13:31)
[2025-02-10] MEDS: LEVOTHYROXINE 88 MCG TAB PO SCH (13:32)
[2025-02-10] MEDS: TAMSULOSIN 0.4 MG CAP.ER.24H PO SCH (13:32)
--- NOTE | 2025-02-10 14:06 | P.HPIM ---
History of Present Illness H&P Date: 02/10/25 Chief Complaint: Progressive weakness, shortness of breath, This is an 85-year-old gentleman with past medical history significant for CHF, EF of 15 to 20%, valvular heart disease, pulmonary hypertension, permanent atrial fibrillation on Eliquis, recently hospitalized with acute CHF exacerbation, acute kidney injury, metabolic acidosis, bilateral hydronephrosis, acute urinary retention, discharged on 02/03/2025, returned to the ER via EMS with complaints of increasing generalized weakness, multiple falls-denies head trauma, exertional dyspnea with limited steps, decreased endurance, fatigue, hematuria-patient had pulled out his Gorman catheter with balloon inflated and multiple other medical issues. Denies cough or congestion. denies chest pain, palpitations. Denies nausea, vomiting or diarrhea. Denies lightheadedness, dizziness or focal deficits. On admission, hypoxic, tachypneic, hypotensive, afebrile, WBC 28.10 .hemoglobin 6.6, received 1 unit of packed RBCs, posttransfusion 6.3. INR 1.5. Sodium 131 bicarb 13 BUN 92 creatinine 7.73, potassium 5.5, magnesium 0.9. proBNP 13,200. Urinalysis bloody, culture pending.EKG reported atrial fibrillation with left bundle branch block. Troponins 0.046, 0.045.Chest x-ray reported no acute process. Review of Systems ROS Statement: Those systems with pertinent positive or pertinent negative responses have been documented in the HPI. ROS Other: All systems not noted in ROS Statement are negative. Past Medical History Past Medical History: Atrial Fibrillation, Coronary Artery Disease (CAD), GERD/Reflux, Hyperlipidemia, Hypertension, Myocardial Infarction ([place]), Prostate Disorder, Thyroid Disorder Additional Past Medical History / Comment(s): Enlarged Prostate, States [place] 30 years ago. Last Myocardial Infarction Date:: 1987 History of Any Multi-Drug Resistant Organisms: None Reported Past Surgical History: Heart Catheterization, Hernia Repair, Orthopedic Surgery Additional Past Surgical History / Comment(s): skin cancer, L eye cataract, R knee replacement Past Anesthesia/Blood Transfusion Reactions: No Reported Reaction Past Psychological History: No Psychological Hx Reported Smoking Status: Former smoker Past Alcohol Use History: Unable to Obtain Past Drug Use History: Unable to Obtain - Past Family History Mother Family Medical History: No Reported History Sister(s) Family Medical History: Cancer Additional Family Medical History / Comment(s): Ovarian Brother(s) Family Medical History: Cancer Additional Family Medical History / Comment(s): Non-Hodgkins Lymphoma Medications and Allergies Home Medications Medication Instructions Recorded Confirmed Type Simvastatin [Zocor] 40 mg PO DAILY 02/09/14 02/10/25 History Omeprazole [PriLOSEC] 20 mg PO BID 09/12/14 02/10/25 History Apixaban [Eliquis] 5 mg PO BID 01/16/18 02/10/25 History Levothyroxine Sodium [Synthroid] 88 mcg PO DAILY 07/13/19 02/10/25 History Doxazosin [Cardura] 2 mg PO DAILY 06/09/22 02/10/25 History Potassium Chloride [Klor-Con 10 ER] 10 meq PO DAILY 06/09/22 02/10/25 History busPIRone HCL 10 mg PO TID PRN 06/09/22 02/10/25 History traZODone HCL [Desyrel] 50 - 100 mg PO HS 06/09/22 02/10/25 History Aspirin EC [Ecotrin Low Dose] 81 mg PO DAILY 01/31/25 02/10/25 History Empagliflozin [Jardiance] 10 mg PO DAILY #30 tablet 02/03/25 02/10/25 Rx Furosemide [Lasix] 40 mg PO BID@0900,1600 #60 tab 02/03/25 02/10/25 Rx Metoprolol Succinate (ER) [Toprol 50 mg PO DAILY #30 tab 02/03/25 02/10/25 Rx XL] Tamsulosin [Flomax] 0.4 mg PO PC-BRKFST #30 cap 02/03/25 02/10/25 Rx Fluticasone/Umeclidin/Vilanter 1 puff INHALATION RT-DAILY 02/10/25 02/10/25 History [Trelegy Ellipta 100-62.5-25] Allergies Allergy/AdvReac Type Severity Reaction Status Date / Time silicone Allergy Rash/Hives Verified 02/10/25 09:39 hydromorphone HCl AdvReac Nausea & Verified 02/10/25 09:39 [From Dilaudid] Vomiting Milk Containing Products AdvReac Diarrhea Verified 02/10/25 09:39 (Dairy) [Milk Containing Products] powder from latex gloves Allergy Rash/Hives Uncoded 02/10/25 09:39 Physical Exam Vitals: Vital Signs Temp Pulse Resp BP Pulse Ox 02/10/25 11:30 93 18 102/52 96 02/10/25 08:39 74 20 101/43 98 02/10/25 07:47 97.5 F L 83 24 93/59 99 02/10/25 06:00 73 30 H 96/55 99 02/10/25 05:09 97.4 F L 66 26 H 94/48 100 02/10/25 05:00 90 39 H 94/48 98 02/10/25 04:49 97.3 F L 68 26 H 94/41 100 02/10/25 04:30 97.4 F L 68 29 H 80/57 100 02/10/25 03:15 72 38 H 88/53 100 02/10/25 02:15 95 28 H 95/45 98 02/10/25 01:30 86 33 H 95/46 97 02/10/25 01:00 77 35 H 77/48 100 02/10/25 00:40 98.0 F 79 40 H 93/46 100 Intake and Output 02/09/25 02/10/25 02/10/25 22:59 06:59 14:59 Intake Total 0 310 Balance 0 310 Intake: Blood Product 0 310 Rc As-1 Unit 0 310 [id number] Other: Weight 81.647 kg PHYSICAL EXAM: VITAL SIGNS: [Reviewed] GENERAL: Elderly male, fatigued, pale ,alert and oriented x 2, no acute distress, [place]. HEENT: Normocephalic, atraumatic ,conjunctivae pale. eyes normal. Sclera anicteric. NECK: Supple, no JVD. CARDIOVASCULAR: S1, S2, irregular rate and rhythm. Systolic murmur RESPIRATION: Unlabored, equal air entry, diminished throughout. ABDOMEN: Soft, distended, nontender . No guarding. no masses palpable. No asc ites, No hepatosplenomegaly.Bowel sounds heard. LEGS: no lower extremity edema, no calf tenderness. NERVOUS SYSTEM: Cranial N 2-12 grossly normal. No focal deficits. Skin: Warm and dry, no rash. Results CBC & Chem 7: 02/10/25 08:15 02/10/25 08:15 Labs: Abnormal Lab Results - Last 24 Hours (Table) 02/10/25 02/10/25 02/10/25 Range/Units 00:57 00:57 00:57 WBC 19.42 H (4.50-10.00) 10*3/uL RBC 2.15 L (4.40-5.60) 10*6/uL Hgb 6.6 L* D (13.0-17.0) g/dL Hct 19.8 L* (39.6-50.0) % Immature Gran # 0.26 H (0.00-0.04) 10*3/uL Neutrophils # 16.76 H (1.80-7.70) 10*3/uL Lymphocytes # 0.68 L (0.90-5.00) 10*3/uL Monocytes # 1.61 H (0.20-1.00) 10*3/uL PT 15.4 H (10.0-12.5) sec INR 1.5 H (<1.2) VBG pH (7.31-7.41) VBG pCO2 (37-51) mmHg VBG HCO3 (24-28) mmol/L Sodium 129 L (137-145) mmol/L Potassium 5.7 H (3.5-5.1) mmol/L Carbon Dioxide 12 L (22-30) mmol/L BUN 94 H (9-20) mg/dL Creatinine 7.79 H* (0.66-1.25) mg/dL Glucose 282 H (74-99) mg/dL POC Glucose (mg/dL) (70-110) mg/dL Plasma Lactic Acid Jesús (0.7-2.0) mmol/L Calcium 7.6 L (8.4-10.2) mg/dL Magnesium 0.9 L* (1.6-2.3) mg/dL Troponin I (0.000-0.034) ng/mL Total Protein 5.4 L (6.3-8.2) g/dL Albumin 2.9 L (3.5-5.0) g/dL Urine RBC (0-5) /hpf Urine WBC (0-5) /hpf Crossmatch 02/10/25 02/10/25 02/10/25 Range/Units 00:57 00:57 00:57 WBC (4.50-10.00) 10*3/uL RBC (4.40-5.60) 10*6/uL Hgb (13.0-17.0) g/dL Hct (39.6-50.0) % Immature Gran # (0.00-0.04) 10*3/uL Neutrophils # (1.80-7.70) 10*3/uL Lymphocytes # (0.90-5.00) 10*3/uL Monocytes # (0.20-1.00) 10*3/uL PT (10.0-12.5) sec INR (<1.2) VBG pH 7.30 L (7.31-7.41) VBG pCO2 31 L (37-51) mmHg VBG HCO3 15 L (24-28) mmol/L Sodium (137-145) mmol/L Potassium (3.5-5.1) mmol/L Carbon Dioxide (22-30) mmol/L BUN (9-20) mg/dL Creatinine (0.66-1.25) mg/dL Glucose (74-99) mg/dL POC Glucose (mg/dL) (70-110) mg/dL Plasma Lactic Acid Jesús 3.2 H* (0.7-2.0) mmol/L Calcium (8.4-10.2) mg/dL Magnesium (1.6-2.3) mg/dL Troponin I 0.046 H* (0.000-0.034) ng/mL Total Protein (6.3-8.2) g/dL Albumin (3.5-5.0) g/dL Urine RBC (0-5) /hpf Urine WBC (0-5) /hpf Crossmatch 02/10/25 02/10/25 02/10/25 Range/Units 01:30 01:43 08:15 WBC 28.10 H (4.50-10.00) 10*3/uL RBC 2.03 L (4.40-5.60) 10*6/uL Hgb 6.3 L* (13.0-17.0) g/dL Hct 19.2 L* (39.6-50.0) % Immature Gran # (0.00-0.04) 10*3/uL Neutrophils # (1.80-7.70) 10*3/uL Lymphocytes # (0.90-5.00) 10*3/uL Monocytes # (0.20-1.00) 10*3/uL PT (10.0-12.5) sec INR (<1.2) VBG pH (7.31-7.41) VBG pCO2 (37-51) mmHg VBG HCO3 (24-28) mmol/L Sodium (137-145) mmol/L Potassium (3.5-5.1) mmol/L Carbon Dioxide (22-30) mmol/L BUN (9-20) mg/dL Creatinine (0.66-1.25) mg/dL Glucose (74-99) mg/dL POC Glucose (mg/dL) (70-110) mg/dL Plasma Lactic Acid Jesús (0.7-2.0) mmol/L Calcium (8.4-10.2) mg/dL Magnesium (1.6-2.3) mg/dL Troponin I (0.000-0.034) ng/mL Total Protein (6.3-8.2) g/dL Albumin (3.5-5.0) g/dL Urine RBC >182 H (0-5) /hpf Urine WBC >182 H (0-5) /hpf Crossmatch See Detail 02/10/25 02/10/25 02/10/25 Range/Units 08:15 10:29 11:26 WBC (4.50-10.00) 10*3/uL RBC (4.40-5.60) 10*6/uL Hgb (13.0-17.0) g/dL Hct (39.6-50.0) % Immature Gran # (0.00-0.04) 10*3/uL Neutrophils # (1.80-7.70) 10*3/uL Lymphocytes # (0.90-5.00) 10*3/uL Monocytes # (0.20-1.00) 10*3/uL PT (10.0-12.5) sec INR (<1.2) VBG pH (7.31-7.41) VBG pCO2 (37-51) mmHg VBG HCO3 (24-28) mmol/L Sodium 131 L (137-145) mmol/L Potassium 5.5 H (3.5-5.1) mmol/L Carbon Dioxide 13 L (22-30) mmol/L BUN 92 H (9-20) mg/dL Creatinine 7.73 H* (0.66-1.25) mg/dL Glucose 301 H (74-99) mg/dL POC Glucose (mg/dL) 321 H (70-110) mg/dL Plasma Lactic Acid Jesús (0.7-2.0) mmol/L Calcium 8.1 L (8.4-10.2) mg/dL Magnesium (1.6-2.3) mg/dL Troponin I 0.045 H* (0.000-0.034) ng/mL Total Protein (6.3-8.2) g/dL Albumin (3.5-5.0) g/dL Urine RBC (0-5) /hpf Urine WBC (0-5) /hpf Crossmatch Assessment and Plan Assessment: Acute blood loss anemia, s/p transfusion 1 unit packed RBCs Gross hematuria. Previous Gorman catheter pulled out with balloon inflated at home. Hypotension Acute hypoxic respiratory failure, on nonrebreather Metabolic acidosis, secondary to the above, bicarb drip initiated Elevated troponins, flat, 0.046, 0.045 Acute renal failure, cardiorenal syndrome Leukocytosis Hypomagnesemia Chronic CHF systolic dysfunction Cardiomyopathy, EF 15 to 20% on echo 02/01/2025 Chronic renal failure, stage V GFR 6, creatinine 7.73 Medical debility , exertional shortness of breath with minimal steps ,increased weakness, multiple falls Recent inpatient admission for systolic CHF exacerbation, acute kidney injury, bilateral hydronephrosis, urinary retention requiring Gorman catheter at DC and multiple medical issues, discharged on 02/03/2025 Diabetes mellitus, hemoglobin A1c 7.6, hyperglycemia Permanent atrial fibrillation, Eliquis on hold CAD, history of [place] Moderate to severe aortic regurgitation Mild to moderate mitral and tricuspid regurgitation Moderate pulmonary hypertension Hypertension, history of Hyperlipidemia Hypothyroidism Benign prostatic hypertrophy Obesity, BMI 28 COPD Plan: Continue on current medication regime ,monitoring and symptomatic [place] at[place]. Patient and daughter at bedside updated on patient's declining condition, poor prognosis, recommending hospice. At this time they wish to proceed with no code, no CPR, no intubation. Currently declining hospice. Cardiology, nephrology and pulmonary consulted, bicarb drip initiated. Agg ressive pulmonary toileting with nebulized bronchodilators, Symbicort, Spiriva .pain management. The impression and plan of care has been dictated as directed. : I performed a history and examination of this patient, discussed the same with the dictator. I agree with the dictator's note ,documented as a scribe. Any additional findings or plans will be noted.
[2025-02-10] MEDS: INSULIN GLARGINE (LANTUS) 100 UNIT/ML SYR SQ SCH (14:51)
--- NOTE | 2025-02-10 15:01 | P.CNPUL ---
History of Present Illness Consult date: 02/10/25 Requesting physician: Vania Aponte Reason for consult: hypoxemia Chief complaint: Generalized weakness, falls History of present illness: This is an 85-year-old male patient who was discharged from here less than a week ago for acute exacerbation of chronic systolic congestive heart failure, acute kidney injury and bilateral hydronephrosis. He was discharged home with a urinary catheter in place. He also has a history of hyper tension, hyperlipidemia, hypothyroidism, diabetes mellitus, chronic renal failure, stage IIIa, chronic atrial fibrillation anticoagulated with Eliquis, BPH, COPD from former chronic tobacco dependence. Throughout the past several days the patient had developed increasing weakness and falls. Also pulled out his Gorman catheter and had ongoing issues with hematuria. He was brought back into the emergency room early this morning. Chest x-ray reveals no acute pulmonary process. White count 28.1. Platelets 323. Sodium 131. Potassium 5.5. Bicarb 13. BUN 92. Creatinine 7.73. Glucose 301. Troponin 0.045. proBNP 13,200. Urinalysis bloody with high WBCs and high RBCs. His initial hemoglobin was 6.6. He received 1 unit of packed red blood cells. Follow-up hemoglobin is 6.3. He is seen today in consultation in the emergency department. He is currently resting on a stretcher. Awake, weak. Very pale. He was initially on a nonrebreather m ask. He is currently maintaining O2 saturations in the mid 90s on room air oxygen. He is afebrile. Currently hemodynamically stable. He received 1 L of fluid resuscitation. He was initially on normal saline at 75 mL/h. He received ceftriaxone. Review of Systems REVIEW OF SYSTEMS: CONSTITUTIONAL: Generalized weakness, falls. Denies any recent significant weight loss or weight gain. EYES: Denies change in vision. EARS, NOSE, MOUTH, THROAT: Denies headaches, denies sore throat. CARDIOVASCULAR: Denies chest pain, palpitations or syncopal episodes. RESPIRATORY: Denies shortness of breath, cough, congestion or hemoptysis. GASTROINTESTINAL: Denies change in appetite, denies abdominal pain GENITOURINARY: Denies hematuria, denies infections. MUSKULOSKELETAL: Denies pain, denies swelling. INTEGUMENTARY: Denies rash, denies eczema. NEUROLOGICAL: Denies recent memory loss, no recent seizure activity. PSYCHIATRIC: Denies anxiety, denies depression. HEMATOLOGIC/LYMPHATIC: Denies anemia, denies enlarged lymph nodes. Past Medical History Past Medical History: Atrial Fibrillation, Coronary Artery Disease (CAD), GERD/Reflux, Hyperlipidemia, Hypertension, Myocardial Infarction ([place]), Prostate Disorder, Thyroid Disorder Additional Past Medical History / Comment(s): Enlarged Prostate, States [place] 30 years ago. Last Myocardial Infarction Date:: 1987 History of Any Multi-Drug Resistant Organisms: None Reported Past Surgical History: Heart Catheterization, Hernia Repair, Orthopedic Surgery Additional Past Surgical History / Comment(s): skin cancer, L eye cataract, R knee replacement Past Anesthesia/Blood Transfusion Reactions: No Reported Reaction Past Psychological History: No Psychological Hx Reported Smoking Status: Former smoker Past Alcohol Use History: Unable to Obtain Past Drug Use History: Unable to Obtain - Past Family History Mother Family Medical History: No Reported History Sister(s) Family Medical History: Cancer Additional Family Medical History / Comment(s): Ovarian Brother(s) Family Medical History: Cancer Additional Family Medical History / Comment(s): Non-Hodgkins Lymphoma Medications and Allergies Home Medications Medication Instructions Recorded Confirmed Type Simvastatin [Zocor] 40 mg PO DAILY 02/09/14 02/10/25 History Omeprazole [PriLOSEC] 20 mg PO BID 09/12/14 02/10/25 History Apixaban [Eliquis] 5 mg PO BID 01/16/18 02/10/25 History Levothyroxine Sodium [Synthroid] 88 mcg PO DAILY 07/13/19 02/10/25 History Doxazosin [Cardura] 2 mg PO DAILY 06/09/22 02/10/25 History Potassium Chloride [Klor-Con 10 ER] 10 meq PO DAILY 06/09/22 02/10/25 History busPIRone HCL 10 mg PO TID PRN 06/09/22 02/10/25 History traZODone HCL [Desyrel] 50 - 100 mg PO HS 06/09/22 02/10/25 History Aspirin EC [Ecotrin Low Dose] 81 mg PO DAILY 01/31/25 02/10/25 History Empagliflozin [Jardiance] 10 mg PO DAILY #30 tablet 02/03/25 02/10/25 Rx Furosemide [Lasix] 40 mg PO BID@0900,1600 #60 tab 02/03/25 02/10/25 Rx Metoprolol Succinate (ER) [Toprol 50 mg PO DAILY #30 tab 02/03/25 02/10/25 Rx XL] Tamsulosin [Flomax] 0.4 mg PO PC-BRKFST #30 cap 02/03/25 02/10/25 Rx Fluticasone/Umeclidin/Vilanter 1 puff INHALATION RT-DAILY 02/10/25 02/10/25 History [Trelegy Ellipta 100-62.5-25] Allergies Allergy/AdvReac Type Severity Reaction Status Date / Time silicone Allergy Rash/Hives Verified 02/10/25 09:39 hydromorphone HCl AdvReac Nausea & Verified 02/10/25 09:39 [From Dilaudid] Vomiting Milk Containing Products AdvReac Diarrhea Verified 02/10/25 09:39 (Dairy) [Milk Containing Products] powder from latex gloves Allergy Rash/Hives Uncoded 02/10/25 09:39 Physical Exam Vitals: Vital Signs Temp Pulse Resp BP Pulse Ox 02/10/25 11:30 93 18 102/52 96 02/10/25 08:39 74 20 101/43 98 02/10/25 07:47 97.5 F L 83 24 93/59 99 02/10/25 06:00 73 30 H 96/55 99 02/10/25 05:09 97.4 F L 66 26 H 94/48 100 02/10/25 05:00 90 39 H 94/48 98 02/10/25 04:49 97.3 F L 68 26 H 94/41 100 02/10/25 04:30 97.4 F L 68 29 H 80/57 100 02/10/25 03:15 72 38 H 88/53 100 02/10/25 02:15 95 28 H 95/45 98 02/10/25 01:30 86 33 H 95/46 97 02/10/25 01:00 77 35 H 77/48 100 02/10/25 00:40 98.0 F 79 40 H 93/46 100 Intake and Output 02/09/25 02/10/25 02/10/25 22:59 06:59 14:59 Intake Total 0 310 Balance 0 310 Intake: Blood Product 0 310 Rc As-1 Unit 0 310 [id number] Other: Weight 81.647 kg GENERAL EXAM: Alert, weak, pale 85-year-old male, on room air oxygen, fairly comfortable in no apparent distress. HEAD: Normocephalic. EYES: Normal reaction of pupils, equal size. NOSE: Clear with pink turbinates. THROAT: No erythema or exudates. NECK: No masses, no JVD. CHEST: No chest wall deformity. LUNGS: Equal air entry with no crackles, wheeze, rhonchi or dullness. CVS: S1 and S2 normal with no audible murmur, regular rhythm. ABDOMEN: No hepatosplenomegaly, normal bowel sounds, no guarding or rigidity. SPINE: No scoliosis or deformity SKIN: No rashes CENTRAL NERVOUS SYSTEM: No focal deficits, tone is normal in all 4 extremities. EXTREMITIES: There is no peripheral edema. No clubbing, no cyanosis. Peripheral pulses are intact. Results - Laboratory Findings CBC and BMP: 02/10/25 08:15 02/10/25 08:15 PT/INR, D-dimer PT 15.4 sec (10.0-12.5) H 02/10/25 00:57 INR 1.5 (<1.2) H 02/10/25 00:57 Abnormal lab findings: Abnormal Labs 02/10/25 02/10/25 02/10/25 00:57 00:57 00:57 WBC 19.42 H RBC 2.15 L Hgb 6.6 L* D Hct 19.8 L* Immature Gran # 0.26 H Neutrophils # 16.76 H Lymphocytes # 0.68 L Monocytes # 1.61 H PT 15.4 H INR 1.5 H VBG pH VBG pCO2 VBG HCO3 Sodium 129 L Potassium 5.7 H Carbon Dioxide 12 L BUN 94 H Creatinine 7.79 H* Glucose 282 H POC Glucose (mg/dL) Plasma Lactic Acid Jesús Calcium 7.6 L Magnesium 0.9 L* Troponin I Total Protein 5.4 L Albumin 2.9 L Urine RBC Urine WBC Crossmatch 02/10/25 02/10/25 02/10/25 00:57 00:57 00:57 WBC RBC Hgb Hct Immature Gran # Neutrophils # Lymphocytes # Monocytes # PT INR VBG pH 7.30 L VBG pCO2 31 L VBG HCO3 15 L Sodium Potassium Carbon Dioxide BUN Creatinine Glucose POC Glucose (mg/dL) Plasma Lactic Acid Jesús 3.2 H* Calcium Magnesium Troponin I 0.046 H* Total Protein Albumin Urine RBC Urine WBC Crossmatch 02/10/25 02/10/25 02/10/25 01:30 01:43 08:15 WBC 28.10 H RBC 2.03 L Hgb 6.3 L* Hct 19.2 L* Immature Gran # Neutrophils # Lymphocytes # Monocytes # PT INR VBG pH VBG pCO2 VBG HCO3 Sodium Potassium Carbon Dioxide BUN Creatinine Glucose POC Glucose (mg/dL) Plasma Lactic Acid Jesús Calcium Magnesium Troponin I Total Protein Albumin Urine RBC >182 H Urine WBC >182 H Crossmatch See Detail 02/10/25 02/10/25 02/10/25 08:15 10:29 11:26 WBC RBC Hgb Hct Immature Gran # Neutrophils # Lymphocytes # Monocytes # PT INR VBG pH VBG pCO2 VBG HCO3 Sodium 131 L Potassium 5.5 H Carbon Dioxide 13 L BUN 92 H Creatinine 7.73 H* Glucose 301 H POC Glucose (mg/dL) 321 H Plasma Lactic Acid Jesús Calcium 8.1 L Magnesium Troponin I 0.045 H* Total Protein Albumin Urine RBC Urine WBC Crossmatch - Diagnostic Findings Chest x-ray: image reviewed Assessment and Plan Assessment: Generalized weakness and falls secondary to acute anemia with presenting hemoglobin of 6.6, received 1 unit of packed red blood cells, follow-up hemoglobin 6.3 Dyspnea and shortness of breath secondary to above Leukocytosis Acute on chronic kidney disease, stage IIIa Hyponatremia Hyperkalemia secondary to above Diabetes mellitus, type II with hyperglycemia Hypomagnesemia, being replaced Severe cardiomyopathy with impaired left ventricular systolic function with an ejection fraction of 15 to 20% Severe pulmonary hypertension Aortic regurgitation Chronic atrial fibrillation anticoagulated with Eliquis Coronary artery disease Hypertension Hyperlipidemia Hypothyroidism BPH Chronic obstructive pulmonary disease Previous chronic tobacco dependence Poor overall functional performance based on the above-mentioned multiple comorbidities Plan: The patient was seen and evaluated Chest x-ray, labs and medications reviewed Continue Symbicort, Spiriva Continue D5W with 3 A of bicarb at 70 mL/h Receiving packed red blood cells Marge remains on hold Cardiology consulted Nephrology consulted Currently stable on room air oxygen DNR/DNI CODE STATUS Condition remains quite guarded We will continue to follow and make further recommendations based on his clinical status I have personally seen and examined the patient, performed the documentation and the assessment and plan as written. Number of minutes spent on the visit: 20 Dictation was produced using Dragon dictation software. Please excuse any grammatical, word or spelling errors. Time with Patient: Greater than 30
--- NOTE | 2025-02-10 17:22 | P.NPCON ---
History of Present Illness - Reason for Consult acute renal failure - History of Present Illness Patient is an 85-year-old male with history of hypertension, CHF, cardiomyopathy with EF of 15 to 20%. Patient was recently discharged from the hospital on 02/03/2025 after hospitalization for CHF exacerbation and acute kidney injury which was mostly obstructive uropathy with bilateral hydronephrosis with bladder outlet obstruction. He was discharged home with Gorman catheter. Serum creatinine decreased from 2.7 to 2.3 mg/dL. Patient was discharged home. It appears that the patient had pulled out his Gorman catheter. Significant bleeding was noted and patient complained of extreme weakness. Gorman catheter was reinserted in the ER. He was noticed to have bloody urine. Hemoglobin was 6.6 g/dL Patient has been transfused packed RBCs The patient was also significantly hypotensive with systolic blood pressure in the 70s. Past Medical History Past Medical History: Atrial Fibrillation, Coronary Artery Disease (CAD), GERD/Reflux, Hyperlipidemia, Hypertension, Myocardial Infarction ([place]), Prostate Disorder, Thyroid Disorder Additional Past Medical History / Comment(s): Enlarged Prostate, States [place] 30 years ago. Last Myocardial Infarction Date:: 1987 History of Any Multi-Drug Resistant Organisms: None Reported Past Surgical History: Heart Catheterization, Hernia Repair, Orthopedic Surgery Additional Past Surgical History / Comment(s): skin cancer, L eye cataract, R knee replacement Past Anesthesia/Blood Transfusion Reactions: No Reported Reaction Past Psychological History: No Psychological Hx Reported Smoking Status: Former smoker Past Alcohol Use History: Unable to Obtain Past Drug Use History: Unable to Obtain - Past Family History Mother Family Medical History: No Reported History Sister(s) Family Medical History: Cancer Additional Family Medical History / Comment(s): Ovarian Brother(s) Family Medical History: Cancer Additional Family Medical History / Comment(s): Non-Hodgkins Lymphoma Medications and Allergies Home Medications Medication Instructions Recorded Confirmed Type Simvastatin [Zocor] 40 mg PO DAILY 02/09/14 02/10/25 History Omeprazole [PriLOSEC] 20 mg PO BID 09/12/14 02/10/25 History Apixaban [Eliquis] 5 mg PO BID 01/16/18 02/10/25 History Levothyroxine Sodium [Synthroid] 88 mcg PO DAILY 07/13/19 02/10/25 History Doxazosin [Cardura] 2 mg PO DAILY 06/09/22 02/10/25 History Potassium Chloride [Klor-Con 10 ER] 10 meq PO DAILY 06/09/22 02/10/25 History busPIRone HCL 10 mg PO TID PRN 06/09/22 02/10/25 History traZODone HCL [Desyrel] 50 - 100 mg PO HS 06/09/22 02/10/25 History Aspirin EC [Ecotrin Low Dose] 81 mg PO DAILY 01/31/25 02/10/25 History Empagliflozin [Jardiance] 10 mg PO DAILY #30 tablet 02/03/25 02/10/25 Rx Furosemide [Lasix] 40 mg PO BID@0900,1600 #60 tab 02/03/25 02/10/25 Rx Metoprolol Succinate (ER) [Toprol 50 mg PO DAILY #30 tab 02/03/25 02/10/25 Rx XL] Tamsulosin [Flomax] 0.4 mg PO PC-BRKFST #30 cap 02/03/25 02/10/25 Rx Fluticasone/Umeclidin/Vilanter 1 puff INHALATION RT-DAILY 02/10/25 02/10/25 Hi story [You Ellipta 100-62.5-25] Allergies Allergy/AdvReac Type Severity Reaction Status Date / Time silicone Allergy Rash/Hives Verified 02/10/25 09:39 hydromorphone HCl AdvReac Nausea & Verified 02/10/25 09:39 [From Dilaudid] Vomiting Milk Containing Products AdvReac Diarrhea Verified 02/10/25 09:39 (Dairy) [Milk Containing Products] powder from latex gloves Allergy Rash/Hives Uncoded 02/10/25 09:39 Physical Exam Vitals: Vital Signs Temp Pulse Resp BP Pulse Ox 02/10/25 16:01 97.8 F 87 16 99/50 99 02/10/25 14:50 80 24 89/54 94 L 02/10/25 11:30 93 18 102/52 96 02/10/25 08:39 74 20 101/43 98 02/10/25 07:47 97.5 F L 83 24 93/59 99 02/10/25 06:00 73 30 H 96/55 99 02/10/25 05:09 97.4 F L 66 26 H 94/48 100 02/10/25 05:00 90 39 H 94/48 98 02/10/25 04:49 97.3 F L 68 26 H 94/41 100 02/10/25 04:30 97.4 F L 68 29 H 80/57 100 02/10/25 03:15 72 38 H 88/53 100 02/10/25 02:15 95 28 H 95/45 98 02/10/25 01:30 86 33 H 95/46 97 02/10/25 01:00 77 35 H 77/48 100 02/10/25 00:40 98.0 F 79 40 H 93/46 100 Intake and Output 02/10/25 02/10/25 02/10/25 06:59 14:59 22:59 Intake Total 0 310 Balance 0 310 Intake: Blood Product 0 310 Rc As-1 Unit 0 310 [id number] Other: Weight 81.647 kg Patient is awake comfortable, no acute distress Lethargic Examination of the heart S1 and S2 Examination of the lungs shows decreased breath sounds bilateral bases Abdomen is soft nontender Examination of lower extremities shows chronic skin changes Results - Lab Results Most recent lab results Calcium 8.1 mg/dL (8.4-10.2) L 02/10/25 08:15 Magnesium 0.9 mg/dL (1.6-2.3) L* 02/10/25 00:57 02/10/25 08:15 02/10/25 08:15 Assessment and Plan Assessment: 1. Acute kidney injury, ATN from hypotension and component of obstructive uropathy. Gorman catheter has been replaced. Patient has significant bloody urine noted in the Gorman bag. Previous creatinine 2.28 on 02/03/2025 and 1.4 in 2021 2. Anemia from significant hematuria after patient pulled out Gorman catheter 3. Obstructive uropathy with bilateral hydronephrosis noted on recent hospitalization status post Gorman catheter placement 4. Anion gap metabolic acidosis secondary to acute kidney injury and lactic acidosis 5. Hyperkalemia associated with acute kidney injury and obstructive uropathy 6. Cardiomyopathy with EF of 15 to 20% Plan: Continue with Gorman catheter Start bicarb drip Repeat labs this afternoon We will continue to monitor for need for renal replacement therapy Consult urology Transfuse packed RBCs and continue to monitor hemoglobin Thank you for the consultation. We will continue to follow the patient with you during his hospitalization.
[2025-02-10 18:09] VITALS: TEMP 98
[2025-02-10 18:32] LABS: Glucose,Whole Blood 445 mg/dL (70-110)
[2025-02-10 20:11] LABS: African American GFR (CKD) 6 (>60 ml/min/1.73 sqM); Anion Gap 15 mmol/L; Blood Urea Nitrogen 92 mg/dL (9-20); Carbon Dioxide 17 mmol/L (22-30); Chloride 96 mmol/L (98-107); Glucose 349 mg/dL (74-99); Non-African American GFR(CKD) 6 (>60 ml/min/1.73 sqM); Potassium 5.3 mmol/L (3.5-5.1); Sodium 128 mmol/L (137-145)
[2025-02-10 21:40] VITALS: BP 107/63; PULSE 99; RESP 18
[2025-02-10] MEDS: ACETAMINOPHEN TAB 325 MG TAB PO PRN (22:28)
[2025-02-10] MEDS: MORPHINE SULFATE 2 MG/ML SYRINGE IVP PRN (23:28)
[2025-02-11] MEDS: LORazepam 1 MG TAB PO PRN (02:06)
[2025-02-11] MEDS ORDERED: ZINC OXIDE PASTE (Z-GUARD) 1 APPLIC TOPICAL PRN (02:09)
[2025-02-11 07:35] LABS: Basophils # (A) 0.02 10*3/uL (0.00-0.10); Basophils % (A) 0.1 %; Eosinophils # (A) 0.14 10*3/uL (0.04-0.35); Eosinophils % (A) 0.7 %; Lymphocytes # (A) 1.41 10*3/uL (0.90-5.00); Lymphocytes % (A) 7.1 %; MCH 30.4 pg (27.0-32.0); MCHC 33.1 g/dL (32.0-37.0); MCV 91.7 fL (80.0-97.0); Monocytes # (A) 1.82 10*3/uL (0.20-1.00); Monocytes % (A) 9.1 %; Neutrophils # (A) 16.07 10*3/uL (1.80-7.70); Neutrophils % (A) 80.4 %; Platelet Count 341 10*3/uL (140-440); RBC 1.68 10*6/uL (4.40-5.60); RDW 13.5 % (11.5-14.5); WBC 19.97 10*3/uL (4.50-10.00)
[2025-02-11 07:55] LABS: HCT 15.4 % (39.6-50.0); HGB 5.1 g/dL (13.0-17.0)
[2025-02-11 08:02] LABS: African American GFR (CKD) 6 (>60 ml/min/1.73 sqM); Anion Gap 13 mmol/L; Blood Urea Nitrogen 95 mg/dL (9-20); Calcium 7.8 mg/dL (8.4-10.2); Carbon Dioxide 19 mmol/L (22-30); Chloride 96 mmol/L (98-107); Glucose 208 mg/dL (74-99); Magnesium 1.7 mg/dL (1.6-2.3); Non-African American GFR(CKD) 5 (>60 ml/min/1.73 sqM); Potassium 5.3 mmol/L (3.5-5.1); Sodium 128 mmol/L (137-145)
--- NOTE | 2025-02-11 09:28 | P.PN ---
Subjective Progress Note Date: 02/11/25 following for DELORES patient seen today, confused, Gorman's catheter noted with bloody urine , Hb dropped to 5.1 RN at bedside mentioned patient's family decided to pursue comfort measures only. Objective - Vital Signs Vital signs: Vital Signs Temp 98.0 F 02/10/25 21:34 Pulse 99 02/10/25 21:34 Resp 18 02/10/25 21:34 BP 107/63 02/10/25 21:34 Pulse Ox 98 02/10/25 21:34 FiO2 Intake & Output 02/10/25 02/11/25 02/11/25 18:59 06:59 18:59 Intake Total 310 240 Output Total 400 Balance 310 -160 Weight 93 kg Intake: Oral 240 Blood Product 310 Rc As-1 Unit 310 [id number] Output: Urine 400 Other: Voiding Method Diaper Indwelling Catheter - Exam Patient is awake , confused, no acute distress Examination of the heart S1 and S2 Examination of the lungs shows decreased breath sounds bilateral bases Abdomen is soft nontender Examination of lower extremities shows chronic skin changes - Labs CBC & Chem 7: 02/11/25 07:08 02/11/25 07:08 Labs: Abnormal Lab Results - Last 24 Hours (Table) 02/10/25 02/10/25 02/10/25 Range/Units 08:15 08:15 10:29 WBC 28.10 H (4.50-10.00) 10*3/uL RBC 2.03 L (4.40-5.60) 10*6/uL Hgb 6.3 L* (13.0-17.0) g/dL Hct 19.2 L* (39.6-50.0) % Immature Gran # (0.00-0.04) 10*3/uL Neutrophils # (1.80-7.70) 10*3/uL Monocytes # (0.20-1.00) 10*3/uL Sodium 131 L (137-145) mmol/L Potassium 5.5 H (3.5-5.1) mmol/L Chloride (98-107) mmol/L Carbon Dioxide 13 L (22-30) mmol/L BUN 92 H (9-20) mg/dL Creatinine 7.73 H* (0.66-1.25) mg/dL Glucose 301 H (74-99) mg/dL POC Glucose (mg/dL) (70-110) mg/dL Calcium 8.1 L (8.4-10.2) mg/dL Troponin I 0.045 H* (0.000-0.034) ng/mL 02/10/25 02/10/25 02/10/25 Range/Units 11:26 18:29 19:25 WBC (4.50-10.00) 10*3/uL RBC (4.40-5.60) 10*6/uL Hgb (13.0-17.0) g/dL Hct (39.6-50.0) % Immature Gran # (0.00-0.04) 10*3/uL Neutrophils # (1.80-7.70) 10*3/uL Monocytes # (0.20-1.00) 10*3/uL Sodium 128 L (137-145) mmol/L Potassium 5.3 H (3.5-5.1) mmol/L Chloride 96 L (98-107) mmol/L Carbon Dioxide 17 L (22-30) mmol/L BUN 92 H (9-20) mg/dL Creatinine 7.84 H* (0.66-1.25) mg/dL Glucose 349 H (74-99) mg/dL POC Glucose (mg/dL) 321 H 445 H (70-110) mg/dL Calcium 8.0 L (8.4-10.2) mg/dL Troponin I (0.000-0.034) ng/mL 02/11/25 02/11/25 Range/Units 07:08 07:08 WBC 19.97 H (4.50-10.00) 10*3/uL RBC 1.68 L (4.40-5.60) 10*6/uL Hgb 5.1 L* (13.0-17.0) g/dL Hct 15.4 L* (39.6-50.0) % Immature Gran # 0.51 H (0.00-0.04) 10*3/uL Neutrophils # 16.07 H (1.80-7.70) 10*3/uL Monocytes # 1.82 H (0.20-1.00) 10*3/uL Sodium 128 L (137-145) mmol/L Potassium 5.3 H (3.5-5.1) mmol/L Chloride 96 L (98-107) mmol/L Carbon Dioxide 19 L (22-30) mmol/L BUN 95 H (9-20) mg/dL Creatinine 8.15 H* (0.66-1.25) mg/dL Glucose 208 H (74-99) mg/dL POC Glucose (mg/dL) (70-110) mg/dL Calcium 7.8 L (8.4-10.2) mg/dL Troponin I (0.000-0.034) ng/mL Assessment and Plan Assessment: 1. Acute kidney injury, ATN from hypotension and component of obstructive uropathy. Gorman catheter has been replaced. Patient has significant bloody urine noted in the Gorman bag. Previous creatinine 2.28 on 02/03/2025 and 1.4 in 2 022 2. Anemia from significant hematuria after patient pulled out Gorman catheter 3. Obstructive uropathy with bilateral hydronephrosis noted on recent hospitalization status post Gorman catheter placement 4. Anion gap metabolic acidosis secondary to acute kidney injury and lactic acidosis 5. Hyperkalemia associated with acute kidney injury and obstructive uropathy 6. Cardiomyopathy with EF of 15 to 20% Plan: Worsening renal function, hematuria and acute blood loss anemia, patient transitioned to comfort care only. discussed with WALDO
[2025-02-11] MEDS: TIOTROPIUM 2.5 MCG INHALER INHALATION SCH (09:39)
--- NOTE | 2025-02-11 09:53 | P.GSCN ---
History of Present Illness Consult date: 02/11/25 History of present illness: 85 yo male , recently d/cd from [facility] presents with generalized weakness. We were asked to see the patient for hematuria. He was seen by Dr barros when he was last in the hospital for urine retention and hematuria. He has a large prostate at 150 gm. He was to have op urodynamics and cysto at our office but presented back to the hospital first.. He has an indwellling catheter which is to remain in place until these tests are done and further disposition of his urinary tract status is determined. He is anemic and has renal insufficiency that has worsened due to the blood loss. The patient apparently will be in hospice care. Review of Systems All systems: negative - Constitutional Denies fever, Denies weight loss - EENT Eyes: denies blurred vision Ears, nose, mouth and throat: Denies dysphagia - Cardiovascular Denies chest pain, Denies shortness of breath - Respiratory Denies cough, Denies 7 - Gastrointestinal Reports as per HPI - Genitourinary Denies dysuria, Denies hematuria - Integumentary Denies rash, Denies unusual bruising - Neurological Denies headaches, Denies syncope - Hematologic/Lymphatic Denies easy bleeding, Denies easy bruising Past Medical History Past Medical History: Atrial Fibrillation, Coronary Artery Disease (CAD), GERD/Reflux, Hyperlipidemia, Hypertension, Myocardial Infarction ([place]), Prostate Disorder, Thyroid Disorder Additional Past Medical History / Comment(s): Enlarged Prostate, States [place] 30 years ago. Last Myocardial Infarction Date:: 1987 History of Any Multi-Drug Resistant Organisms: None Reported Past Surgical History: Heart Catheterization, Hernia Repair, Orthopedic Surgery Additional Past Surgical History / Comment(s): skin cancer, L eye cataract, R knee replacement Past Anesthesia/Blood Transfusion Reactions: No Reported Reaction Past Psychological History: No Psychological Hx Reported Smoking Status: Former smoker Past Alcohol Use History: Unable to Obtain Additional Past Alcohol Use History / Comment(s): Quit smoking in 1999. Past Drug Use History: Unable to Obtain - Past Family History Mother Family Medical History: No Reported History Sister(s) Family Medical History: Cancer Additional Family Medical History / Comment(s): Ovarian Brother(s) Family Medical History: Cancer Additional Family Medical History / Comment(s): Non-Hodgkins Lymphoma Medications and Allergies Home Medications Medication Instructions Recorded Confirmed Type Simvastatin [Zocor] 40 mg PO DAILY 02/09/14 02/10/25 History Omeprazole [PriLOSEC] 20 mg PO BID 09/12/14 02/10/25 History Apixaban [Eliquis] 5 mg PO BID 01/16/18 02/10/25 History Levothyroxine Sodium [Synthroid] 88 mcg PO DAILY 07/13/19 02/10/25 History Doxazosin [Cardura] 2 mg PO DAILY 06/09/22 02/10/25 History Potassium Chloride [Klor-Con 10 ER] 10 meq PO DAILY 06/09/22 02/10/25 History busPIRone HCL 10 mg PO TID PRN 06/09/22 02/10/25 History traZODone HCL [Desyrel] 50 - 100 mg PO HS 06/09/22 02/10/25 History Aspirin EC [Ecotrin Low Dose] 81 mg PO DAILY 01/31/25 02/10/25 History Empagliflozin [Jardiance] 10 mg PO DAILY #30 tablet 02/03/25 02/10/25 Rx Furosemide [Lasix] 40 mg PO BID@0900,1600 #60 tab 02/03/25 02/10/25 Rx Metoprolol Succinate (ER) [Toprol 50 mg PO DAILY #30 tab 02/03/25 02/10/25 Rx XL] Tamsulosin [Flomax] 0.4 mg PO PC-BRKFST #30 cap 02/03/25 02/10/25 Rx Fluticasone/Umeclidin/Vilanter 1 puff INHALATION RT-DAILY 02/10/25 02/10/25 History [Trelegy Ellipta 100-62.5-25] Allergies Allergy/AdvReac Type Severity Reaction Status Date / Time silicone Allergy Rash/Hives Verified 02/10/25 09:39 hydromorphone HCl AdvReac Nausea & Verified 02/10/25 09:39 [From Dilaudid] Vomiting Milk Containing Products AdvReac Diarrhea Verified 02/10/25 09:39 (Dairy) [Milk Containing Products] powder from latex gloves Allergy Rash/Hives Uncoded 02/10/25 09:39 Surgical - Exam Vital Signs Temp Pulse Resp BP Pulse Ox 98.0 F 79 40 H 93/46 100 02/10/25 00:40 02/10/25 00:40 02/10/25 00:40 02/10/25 00:40 02/10/25 00:40 - General well developed, well nourished, no distress - Eyes normal ocular movement, no icteric - ENT no hearing loss, no congestion - Neck no masses, trachea midline - Respiratory normal respiratory effort, clear to auscultation - Abdomen Abdomen: soft, non tender, no guarding, no rigid, no rebound - Integumentary no rash, no abnormal pigmentation - Neurologic no disoriented, no combative - Psychiatric oriented to time, oriented to person, oriented to place, speech is normal, memory intact Results - Labs 02/11/25 07:08 02/11/25 07:08 Abnormal Lab Results - Last 24 Hours (Table) 02/10/25 02/10/25 02/10/25 Range/Units 08:15 08:15 10:29 WBC 28.10 H (4.50-10.00) 10*3/uL RBC 2.03 L (4.40-5.60) 10*6/uL Hgb 6.3 L* (13.0-17.0) g/dL Hct 19.2 L* (39.6-50.0) % Sodium 131 L (137-145) mmol/L Potassium 5.5 H (3.5-5.1) mmol/L Chloride (98-107) mmol/L Carbon Dioxide 13 L (22-30) mmol/L BUN 92 H (9-20) mg/dL Creatinine 7.73 H* (0.66-1.25) mg/dL Glucose 301 H (74-99) mg/dL POC Glucose (mg/dL) (70-110) mg/dL Calcium 8.1 L (8.4-10.2) mg/dL Troponin I 0.045 H* (0.000-0.034) ng/mL 02/10/25 02/10/25 02/10/25 Range/Units 11:26 18:29 19:25 WBC (4.50-10.00) 10*3/uL RBC (4.40-5.60) 10*6/uL Hgb (13.0-17.0) g/dL Hct (39.6-50.0) % Sodium 128 L (137-145) mmol/L Potassium 5.3 H (3.5-5.1) mmol/L Chloride 96 L (98-107) mmol/L Carbon Dioxide 17 L (22-30) mmol/L BUN 92 H (9-20) mg/dL Creatinine 7.84 H* (0.66-1.25) mg/dL Glucose 349 H (74-99) mg/dL POC Glucose (mg/dL) 321 H 445 H (70-110) mg/dL Calcium 8.0 L (8.4-10.2) mg/dL Troponin I (0.000-0.034) ng/mL Diabetes panel 02/10/25 02/10/25 Range/Units 08:15 19:25 Sodium 131 L 128 L (137-145) mmol/L Potassium 5.5 H 5.3 H (3.5-5.1) mmol/L Chloride 100 96 L (98-107) mmol/L Carbon Dioxide 13 L 17 L (22-30) mmol/L BUN 92 H 92 H (9-20) mg/dL Creatinine 7.73 H* 7.84 H* (0.66-1.25) mg/dL Glucose 301 H 349 H (74-99) mg/dL Calcium 8.1 L 8.0 L (8.4-10.2) mg/dL Calcium panel 02/10/25 02/10/25 Range/Units 08:15 19:25 Calcium 8.1 L 8.0 L (8.4-10.2) mg/dL Pituitary panel 02/10/25 02/10/25 Range/Units 08:15 19:25 Sodium 131 L 128 L (137-145) mmol/L Potassium 5.5 H 5.3 H (3.5-5.1) mmol/L Chloride 100 96 L (98-107) mmol/L Carbon Dioxide 13 L 17 L (22-30) mmol/L BUN 92 H 92 H (9-20) mg/dL Creatinine 7.73 H* 7.84 H* (0.66-1.25) mg/dL Glucose 301 H 349 H (74-99) mg/dL Calcium 8.1 L 8.0 L (8.4-10.2) mg/dL Adrenal panel 02/10/25 02/10/25 Range/Units 08:15 19:25 Sodium 131 L 128 L (137-145) mmol/L Potassium 5.5 H 5.3 H (3.5-5.1) mmol/L Chloride 100 96 L (98-107) mmol/L Carbon Dioxide 13 L 17 L (22-30) mmol/L BUN 92 H 92 H (9-20) mg/dL Creatinine 7.73 H* 7.84 H* (0.66-1.25) mg/dL Glucose 301 H 349 H (74-99) mg/dL Calcium 8.1 L 8.0 L (8.4-10.2) mg/dL Assessment and Plan Assessment: Impression: weakness secondary to anemia. Gross hematuria secondary to a large prostate. Urine retention acute and chronic secondary to a large prostate. anticoagulation Recommendations; From a urological standpoint this is a very difficult situation. the bleeding is due to the large prostate[150 gm] aggravated by anticoagulation and the catheter. He needs the catheter because of the r etention but it is contributing to the hematuria. Endoscopic control of the hematuria would be extremely difficult due to the size of the prostate. Surgery for the large prostate may eventually be needed however he may still have non functioning bladder which would leave him in retention. the anticoagulation, which medically maybe necessary, makes the situation worse as the bleeding will persist and worseen because of this. If possible the anticoagulation should be stopped. Irrigation of the catheter prn.
--- NOTE | 2025-02-11 12:09 | P.PN ---
Subjective Progress Note Date: 02/11/25 This is an 85-year-old male patient who was discharged from here less than a week ago for acute exacerbation of chronic systolic congestive heart failure, acute kidney injury and bilateral hydronephrosis. He was discharged home with a urinary catheter in place. He also has a history of hyper tension, hy perlipidemia, hypothyroidism, diabetes mellitus, chronic renal failure, stage IIIa, chronic atrial fibrillation anticoagulated with Eliquis, BPH, COPD from former chronic tobacco dependence. Throughout the past several days the patient had developed increasing weakness and falls. Also pulled out his Gorman catheter and had ongoing issues with hematuria. He was brought back into the emergency room early this morning. Chest x-ray reveals no acute pulmonary process. White count 28.1. Platelets 323. Sodium 131. Potassium 5.5. Bicarb 13. BUN 92. Creatinine 7.73. Glucose 301. Troponin 0.045. proBNP 13,200. Urinalysis bloody with high WBCs and high RBCs. His initial hemoglobin was 6.6. He received 1 unit of packed red blood cells. Follow-up hemoglobin is 6.3. He is seen today in consultation in the emergency department. He is currently resting on a stretcher. Awake, weak. Very pale. He was initially on a nonrebreather mask. He is currently maintaining O2 saturations in the mid 90s on room air oxygen. He is afebrile. Currently hemodynamically stable. He received 1 L of fluid resuscitation. He was initially on normal saline at 75 mL/h. He received ceftriaxone. The patient is seen today February 11, 2025 in follow-up on the regular medical floor. He is currently resting in bed. He is quite weak and pale. He is maintaining O2 saturations in the upper 90s on 2 L/min per nasal cannula. He has been afebrile. Hemodynamically stable. White count 19.9. Hemoglobin 5.1. Platelets 341. Sodium 128. Potassium 5.3. Bicarb 19. BUN 95. Creatinine 8.15. Glucose 208. He did receive 1 unit of packed red blood cells yesterday. He remains on D5W with 3 A of bicarb at 70 mL/h. Continued on Symbicort Spiriva. Family is at the bedside Objective - Vital Signs Vital signs: Vital Signs Temp 98.0 F 02/10/25 21:34 Pulse 99 02/10/25 21:34 Resp 18 02/10/25 21:34 BP 107/63 02/10/25 21:34 Pulse Ox 98 02/11/25 09:39 FiO2 Intake & Output 02/10/25 02/11/25 02/11/25 18:59 06:59 18:59 Intake Total 310 240 Output Total 400 25 Balance 310 -160 -25 Weight 93 kg Intake: Oral 240 Blood Product 310 Rc As-1 Unit 310 [id number] Output: Urine 400 25 Uretheral (Gorman) 25 Other: Voiding Method Diaper Indwelling Catheter - Exam GENERAL EXAM: Alert, weak, pale 85-year-old male, on 2 L/min per nasal cannula, fairly comfortable in no apparent distress. HEAD: Normocephalic. EYES: Normal reaction of pupils, equal size. NOSE: Clear with pink turbinates. THROAT: No erythema or exudates. NECK: No masses, no JVD. CHEST: No chest wall deformity. LUNGS: Equal air entry with no crackles, wheeze, rhonchi or dullness. CVS: S1 and S2 normal with no audible murmur, irregular rhythm. ABDOMEN: No hepatosplenomegaly, normal bowel sounds, no guarding or rigidity. SPINE: No scoliosis or deformity SKIN: No rashes CENTRAL NERVOUS SYSTEM: No focal deficits, tone is normal in all 4 extremities. EXTREMITIES: There is no peripheral edema. No clubbing, no cyanosis. Peripheral pulses are intact. - Labs CBC & Chem 7: 02/11/25 07:08 02/11/25 07:08 Labs: Abnormal Lab Results - Last 24 Hours (Table) 02/10/25 02/10/25 02/11/25 Range/Units 18:29 19:25 07:08 WBC 19.97 H (4.50-10.00) 10*3/uL RBC 1.68 L (4.40-5.60) 10*6/uL Hgb 5.1 L* (13.0-17.0) g/dL Hct 15.4 L* (39.6-50.0) % Immature Gran # 0.51 H (0.00-0.04) 10*3/uL Neutrophils # 16.07 H (1.80-7.70) 10*3/uL Monocytes # 1.82 H (0.20-1.00) 10*3/uL Sodium 128 L (137-145) mmol/L Potassium 5.3 H (3.5-5.1) mmol/L Chloride 96 L (98-107) mmol/L Carbon Dioxide 17 L (22-30) mmol/L BUN 92 H (9-20) mg/dL Creatinine 7.84 H* (0.66-1.25) mg/dL Glucose 349 H (74-99) mg/dL POC Glucose (mg/dL) 445 H (70-110) mg/dL Calcium 8.0 L (8.4-10.2) mg/dL 02/11/25 Range/Units 07:08 WBC (4.50-10.00) 10*3/uL RBC (4.40-5.60) 10*6/uL Hgb (13.0-17.0) g/dL Hct (39.6-50.0) % Immature Gran # (0.00-0.04) 10*3/uL Neutrophils # (1.80-7.70) 10*3/uL Monocytes # (0.20-1.00) 10*3/uL Sodium 128 L (137-145) mmol/L Potassium 5.3 H (3.5-5.1) mmol/L Chloride 96 L (98-107) mmol/L Carbon Dioxide 19 L (22-30) mmol/L BUN 95 H (9-20) mg/dL Creatinine 8.15 H* (0.66-1.25) mg/dL Glucose 208 H (74-99) mg/dL POC Glucose (mg/dL) (70-110) mg/dL Calcium 7.8 L (8.4-10.2) mg/dL Microbiology - Last 24 Hours (Table) 02/10/25 01:43 Urine Culture - Final Urine,Voided Strep agalactiae - (group b) Assessment and Plan Assessment: Generalized weakness and falls secondary to acute anemia with presenting hemoglobin of 6.6, received 1 unit of packed red blood cells, follow-up hemoglobin down to 5.1 Dyspnea and shortness of breath secondary to above Leukocytosis Acute on chronic kidney disease, stage IIIa with worsening renal function Hyponatremia Hyperkalemia secondary to above Diabetes mellitus, type II with hyperglycemia Hypomagnesemia, being replaced Severe cardiomyopathy with impaired left ventricular systolic function with an ejection fraction of 15 to 20% Severe pulmonary hypertension Aortic regurgitation Chronic atrial fibrillation anticoagulated with Eliquis Coronary artery disease Hypertension Hyperlipidemia Hypothyroidism BPH Chronic obstructive pulmonary disease Previous chronic tobacco dependence Poor overall functional performance based on the above-mentioned multiple comorbidities Plan: The patient was seen and evaluated Labs and medications reviewed Remains on D5W with 3 A of bicarb at 70 mL/h Continued on Symbicort and Spiriva Currently on 2 L nasal cannula Hemoglobin down to 5.1 Family is at the bedside No more interventions planned They are hoping to get the patient home Plan is for palliative care/hospice This patient was seen independently by the pulmonary nurse practitioner addressing pulmonary issues I have personally seen and examined the patient, performed the documentation and the assessment and plan as written. Number of minutes spent on the visit: 25 Dictation was produced using [employer] dictation software. Please excuse any grammatical, word or spelling errors.
--- NOTE | 2025-02-11 12:23 | P.DS ---
Providers Date of admission: 02/10/25 02:23 Expected date of discharge: 02/11/25 Attending physician: Dakota Stahl Consults: 02/10/25 10:02 Consult Physician Stat Consulting Provider: Laurence Donnelly Consult Reason/Comments: renal failure, cardiorenal failure Do you want consulting provider notified?: Yes 02/10/25 10:03 Consult Physician Urgent Consulting Provider: Karina Richmond Consult Reason/Comments: heart failure, multisys. organ failure Do you want consulting provider notified?: Yes 02/10/25 10:09 Consult Physician Urgent Consulting Provider: Parveen Estes Consult Reason/Comments: respiratory failure, cardiorenal, multisystem organ failure Do you want consulting provider notified?: Yes 02/10/25 17:22 Consult Physician Routine Consulting Provider: Nino Fernandez Consult Reason/Comments: hematuria Do you want consulting provider notified?: Yes Primary care physician: [facility] Course: Patient known to me is currently oriented to person only mostly delirious end- stage renal disease GFR of less than 6, cardiomyopathy with an EF of less than 20 Discussion with family yesterday it appears that they wish him to go back to his home allowing him to at home with the family I am in agreement with their wishes and and am trying to facilitate his returning to home as soon as possible 2-day Assessment: I saw this patient in the office Thursday at that time I discussed with him and made him and his son aware that his cardiac function was extremely poor that his LVEF was less than 20% His GFR was less than 6, and his hemoglobin was around 5 he had been transfused as an outpatient unit of red blood cells approximately 3 days prior to this and things were deteriorating fast. Shared with both the patient and his son at his organs were starting to fail and that he is life expectancy was very short the prognosis was extremely grave, he did not want to live life saving efforts to be performed, he stated that he did not want CPR performed, he stated that he did not want to be intubated or placed on mechanical ventilation, but he wanted medications if they would help him survive with a good quality of life his son was there when this conversation was had and my nurse practitioner Lisa Hernandes was also there at that time. He made it aware that he had no interest in hospice consultation he felt he had a bad experience with that with his but he did not want to suffer this was discussed with his son present Patient Condition at Discharge: Serious Plan - Discharge Summary Discharge Rx Participant: Yes New Discharge Prescriptions: New MORPHINE ORAL SALLIE CONC 20mg/mL [Roxanol Oral Soln Conc 20MG/ML] 20 mg PO Q4HR PRN 3 Days #18 ml PRN Reason: Pain No Action Simvastatin [Zocor] 40 mg PO DAILY Omeprazole [PriLOSEC] 20 mg PO BID Apixaban [Eliquis] 5 mg PO BID Levothyroxine Sodium [Synthroid] 88 mcg PO DAILY Doxazosin [Cardura] 2 mg PO DAILY Tamsulosin [Flomax] 0.4 mg PO PC-BRKFST #30 cap Furosemide [Lasix] 40 mg PO BID@0900,1600 #60 tab Empagliflozin [Jardiance] 10 mg PO DAILY #30 tablet Fluticasone/Umeclidin/Vilanter [Trelegy Ellipta 100-62.5-25] 1 puff INHALATION RT-DAILY traZODone HCL [Desyrel] 50 - 100 mg PO HS Potassium Chloride [Klor-Con 10 ER] 10 meq PO DAILY busPIRone HCL 10 mg PO TID PRN PRN Reason: Anxiety Aspirin EC [Ecotrin Low Dose] 81 mg PO DAILY Metoprolol Succinate (ER) [Toprol XL] 50 mg PO DAILY #30 tab Discharge Medication List Simvastatin [Zocor] 40 mg PO DAILY 02/09/14 [History] Omeprazole [PriLOSEC] 20 mg PO BID 09/12/14 [History] Apixaban [Eliquis] 5 mg PO BID 01/16/18 [History] Levothyroxine Sodium [Synthroid] 88 mcg PO DAILY 07/13/19 [History] Doxazosin [Cardura] 2 mg PO DAILY 06/09/22 [History] Potassium Chloride [Klor-Con 10 ER] 10 meq PO DAILY 06/09/22 [History] busPIRone HCL 10 mg PO TID PRN 06/09/22 [History] traZODone HCL [Desyrel] 50 - 100 mg PO HS 06/09/22 [History] Aspirin EC [Ecotrin Low Dose] 81 mg PO DAILY 01/31/25 [History] Empagliflozin [Jardiance] 10 mg PO DAILY #30 tablet 02/03/25 [Rx] Furosemide [Lasix] 40 mg PO BID@0900,1600 #60 tab 02/03/25 [Rx] Metoprolol Succinate (ER) [Toprol XL] 50 mg PO DAILY #30 tab 02/03/25 [Rx] Tamsulosin [Flomax] 0.4 mg PO PC-BRKFST #30 cap 02/03/25 [Rx] Fluticasone/Umeclidin/Vilanter [Trelegy Ellipta 100-62.5-25] 1 puff INHALATION RT-DAILY 02/10/25 [History] MORPHINE ORAL SALLIE CONC 20mg/mL [Roxanol Oral Soln Conc 20MG/ML] 20 mg PO Q4HR PRN 3 Days #18 ml 02/11/25 [Rx] Follow up Appointment(s)/Referral(s): Dakota Stahl Jr, [Primary Care Provider] - 1-2 days
--- NOTE | 2025-02-14 19:50 | CDI ---
Documentation Clarification Form Date: 02/14/2025 07:39:53 PM From: Vania Patel Phone: Admit Date: 02/10/2025 02:23:00 AM Patient Name: Dante Nielsen Visit Number: [id number] Discharge Date: 02/11/2025 02:36:00 PM ATTENTION: The Clinical Documentation Specialists (CDI) and [facility] Coding Staff appreciate your assistance in clarifying documentation. Please respond to the clarification below the line at the bottom and electronically sign. The CDI & [facility] Coding staff will review the response and follow-up if needed. Please note: Queries are made part of the Legal Health Record. If you have any questions, please contact the author of this message via ITS. Doctor/Provider: Dakota Stahl Conflicting stages of CKD are documented throughout the Progress Notes and DCS. Additional clarification regarding the stage of CKD is requested. History/Risk Factors: 85yo M, ATN, FC pulled out causing hematuria & ABLA, met/lactic acidosis, ACSHF, AHRF, HTN, permanent A Fib Clinical Indicators: BUN: 02/10 92 02/11 95 02/10 [id number]:[id number] 02/10 7.84 19:25 02/11 8.15 GFR: 02/10 02/04 02/11 5 Treatment: Continue withFoley catheter. Start bicarb drip. Repeat labs this afternoon. We will continue to monitor for need forrenal replacement therapy. Consult urology. Please clarify the stage of the CKD, if known: [ ] CKD Stage 3a [ ] CKD Stage 3b [ ] CKD Stage 4 [ x] CKD Stage 5 [ ] ESRD [ ] Other, please specify [ ] Unable to determine Reference: [employer] Stage 1 eGFR = 90 and kidney damage for =3 months Stage 2 eGFR 60-89 and kidney damage for =3 months Stage 3a eGFR 45-59 and kidney damage for =3 months Stage 3b eGFR 30-44 and kidney damage for =3 months Stage 4 eGFR 15-29 r and kidney damage for =3 months Stage 5 eGFR <15 and kidney damage for =3 months (Template Last revised: August 2023) MTDD
== END 2025-02-11 14:36 | disposition home or self-care (01) | DRG 811 ==
LOC: EC 00:38 → 3SCARD 02:23 → 5NMEDONC 06:40
PROVIDERS: ADMIT Family Medicine; ATTEND Family Medicine
PROC: 30233N1 Transfusion of Nonautologous Red Blood Cells into Peripheral Vein, Percutaneous Approach (ICD-10-PCS; principal; 2025-02-10)
DX: D62 Acute posthemorrhagic anemia (principal); I50.23 Acute on chronic systolic (congestive) heart failure; N17.0 Acute kidney failure with tubular necrosis; Z51.5 Encounter for palliative care; Z66 Do not resuscitate; J96.01 Acute respiratory failure with hypoxia; I13.2 Hypertensive heart and chronic kidney disease with heart failure and with stage 5 chronic kidney disease, or end stage renal disease; I27.22 Pulmonary hypertension due to left heart disease; N18.5 Chronic kidney disease, stage 5; E11.65 Type 2 diabetes mellitus with hyperglycemia; J44.9 Chronic obstructive pulmonary disease, unspecified; E03.9 Hypothyroidism, unspecified; I08.3 Combined rheumatic disorders of mitral, aortic and tricuspid valves; E66.9 Obesity, unspecified; I42.9 Cardiomyopathy, unspecified; I48.21 Permanent atrial fibrillation; E87.1 Hypo-osmolality and hyponatremia; N13.30 Unspecified hydronephrosis; E87.20 Acidosis, unspecified; E11.22 Type 2 diabetes mellitus with diabetic chronic kidney disease; T83.021A Displacement of indwelling urethral catheter, initial encounter; E83.42 Hypomagnesemia; E87.5 Hyperkalemia; I25.10 Atherosclerotic heart disease of native coronary artery without angina pectoris; R29.6 Repeated falls; E78.5 Hyperlipidemia, unspecified; N40.0 Benign prostatic hyperplasia without lower urinary tract symptoms; D72.829 Elevated white blood cell count, unspecified; R31.0 Gross hematuria; I95.9 Hypotension, unspecified; Z79.01 Long term (current) use of anticoagulants; Z79.82 Long term (current) use of aspirin; Z79.84 Long term (current) use of oral hypoglycemic drugs; Z79.890 Hormone replacement therapy; Z79.899 Other long term (current) drug therapy; Z85.828 Personal history of other malignant neoplasm of skin; Z87.891 Personal history of nicotine dependence; Z79.51 Long term (current) use of inhaled steroids; I25.2 Old myocardial infarction; Z91.81 History of falling; Z68.28 Body mass index [BMI] 28.0-28.9, adult; Z96.651 Presence of right artificial knee joint; Y73.8 Miscellaneous gastroenterology and urology devices associated with adverse incidents, not elsewhere classified
CPT/HCPCS: 36415; 36430; 51702; 71045; 80048; 80053; 81001; 82803; 83605; 83735; 83880; 84484; 85025; 85027; 85610; 85730; 86850; 86900; 86901; 86920; 87040; 87086; 93005; 94640; 94760; 96361; 96365; 96366; 96367; 96375; 99291